=== PATIENT | male | born 1975 | race Caucasian/White ===

== ENCOUNTER 2019-08-10 14:44 | Emergency (ER) | payer SELFPAY ==
[2019-08-10 14:45] VITALS: BP 167/69; PULSE 74; RESP 16; TEMP 36.5; O2SAT 99; BMI 46.5
--- NOTE | 2019-08-10 15:07 | EKG12_ITS ---
Test Reason : SOB Blood Pressure : / mmHG Vent. Rate : 079 BPM Atrial Rate : 079 BPM P-R Int : 132 ms QRS Dur : 146 ms QT Int : 400 ms P-R-T Axes : 010 014 -01 degrees QTc Int : 458 ms Normal sinus rhythm Right bundle branch block Abnormal ECG Confirmed by PRAVEEN HOLCOMB, LUX ([id number]), news videotape editor ANGELINA RAMIREZ ([id number] on 08/12/2019 3:15:25 PM Referred By: SL/JERRI Confirmed By:LUX MORTON MD
--- NOTE | 2019-08-10 15:09 | ED.VISSUMM ---
- ER Visit Summary Date of Service: 08/10/19 Chief Complaint: Cough and shortness of breath History of Present Illness: The patient is a 44 M who presents with cough and shortness of breath that is been constant for the past 2 months. Patient states he has been on antibiotics and is currently on prednisone for this. Patient states he feels fatigued. Patient states he feels like he cannot catch his breath. Patient states his breathing is worse with any exertion. Patient states when he coughs he gets pain that goes into his neck and down into his back. Patient states this last for several minutes and then resolves. Patient admits to subjective chills. Patient admits to nausea but denies any vomiting. Patient admits to a headache and rhinorrhea with some postnasal drainage. Physical Examination: Vital signs are stable. Patient is afebrile. Patient is in no acute distress. Oral mucosa is pink and moist. Neck is supple. Trachea is midline. There is no JVD. Heart was regular rate and rhythm. Lungs showed mild expiratory wheezing. There is adequate respiratory effort. Abdomen is soft. Bowel sounds are normal. There is no tenderness. Cranial nerves II through XII are intact. There are no focal motor or sensory deficits noted. Extremities are intact. There is no calf tenderness or edema. Test Results: EKG showed a normal sinus rhythm with a rate of 79. There is a right bundle branch block pattern noted. There are no acute ST or T wave changes noted. There are no prior EKGs available for comparison. CBC shows a mild leukocytosis of 13.4. Comprehensive metabolic profile was within normal limits. D-dimer was normal. PA and lateral chest x-ray was obtained. There is no acute cardiopulmonary process. This was interpreted by the radiologist and myself. Emergency Department Course and Treatment: Patient was given a DuoNeb aerosol here. Patient was given a repeat albuterol aerosol. Patient was feeling somewhat better on reevaluation. Patient was ambulated in the bishop. Patient maintained an oxygen saturation of 94%. Patient was instructed to continue his prednisone as previously prescribed until gone. Patient was advised that this is most likely a viral infection and antibiotics are not necessary. Patient was instructed to follow-up with his primary care physician in 5 to 7 days. Patient was given a prescription for a short course of Tylenol with codeine to help with the cough and pain. Patient understood and was agreeable with the plan. All questions were answered. Disposition: Discharge home Impression: Viral bronchitis This note was generated with [employer] dictation software. It may contain incorrect words, spelling, and punctuation that were not noted in review of the chart prior to signing ED Disposition - Plan for ED Patient: Disposition: Home or Assisted Living Diagnosis: Viral bronchitis Instructions: BRONCHITIS with Wheezing (Adult) Prescriptions: Acetaminophen/Codeine #3 [Tylenol#3] 1 tab PO Q4H PRN PRN 3 Days #18 tab PRN Reason: Cough Prescription Printed Referrals: [facility] Doctor,Out of [NON-STAFF] - 5-7 Days
[2019-08-10 15:18] VITALS: PULSE 74; RESP 15
[2019-08-10] MEDS: Ipratropium/Albuterol Sulfate 3 ML AMPUL.NEB INHALATION (15:18)
[2019-08-10 15:24] VITALS: O2SAT 99
--- NOTE | 2019-08-10 15:30 | RAD_ITS ---
STUDY: X-RAY CHEST REASON FOR EXAM: Male, 44 years old. TROUBLE BREATHING, COUGH x2 MONTHS TECHNIQUE: PA and lateral views of the chest. COMPARISON: None. FINDINGS: EKG leads project over the chest. The lungs are clear and expanded. There is no demonstrated pleural abnormality. Normal size heart. Normal mediastinum and bernard. Normal visualized pulmonary arteries. Normal visualized aortic arch and descending thoracic aorta. Normal visualized thoracic spine. Normal visualized ribs, clavicles, and shoulders. There is no demonstrated abnormality of the visualized soft tissue structures of the upper abdomen. RAD/Chest PA and Lateral IMPRESSION: Normal x-ray examination of the chest. Electronically Signed: Temo Cary MD (Brooks) at 15:55 EST , Service support ,
[2019-08-10 15:32] LABS: Absolute Lymphocyte Count 1.66 X10^3/uL (0.83-4.51); Absolute Neutrophil Count 10.6 X10^3/uL (2.0-7.7); Basophil# 0.06 X10^3/uL; Basophil% 0.4 % (0-1); Eosinophil# 0.05 X10^3/uL; Eosinophils% 0.4 % (0-5); Hematocrit 41.9 % (40-54); Hemoglobin 13.8 g/dL (13.0-16.5); Lymphocyte # 1.66 X10^3/ul (4.0); Lymphocyte % 12.4 % (19-41); Mean Corp Hgb Conc 32.9 g/dL (32-36); Mean Corpuscular Hgb 26.8 pg (27.0-32.0); Mean Corpuscular Volume 81.4 fL (80-94); Mean Platelet Vol. 10.5 fl (6.2-12.0); Monocyte# 0.79 X10^3/uL; Monocyte% 5.9 % (0-10); NRBC Flagged by Analyzer 0 % (0-5); Neutrophil # 10.55 X10^3/uL (2.7-7.7); Neutrophil % 78.9 % (47-70); Platelet Count 242 K/mm3 (150-450); RBC Distribution Width CV 13.2 % (11.6-14.6); RBC Distribution Width SD 38.6 fl (35.1-43.9); Red Blood Count 5.15 M/mm3 (4.6-6.2); White Blood Count 13.4 K/mm3 (4.4-11.0)
[2019-08-10 15:44] LABS: D-Dimer Quantitative (DVT/PE) 0.32 FEU/ug/m (0.27-0.49)
[2019-08-10 15:53] LABS: ALB/GLOB Ratio 0.8 RATIO (0.9-2.4); AST(SGOT) 24 U/L (15-37); Alanine Aminotransfer ALT/SGPT 47 U/L (16-61); Albumin, Serum 3.3 g/dL (3.2-5.0); Alkaline Phosphatase 85 U/L (45-117); Anion Gap 8 (5-15); BUN 29 mg/dL (7-18); Calcium,Total 9.3 mg/dL (8.5-10.1); Chloride 105 mmol/L (98-107); Creatinine, Serum 1.16 mg/dL (0.70-1.30); EST Glomerular Filtration Rate 72 mL/min (>60); Est Glom Filt Rate - Afr Amer 87 mL/min (>60); Estimated Creatinine Clearance 80.42 ml/min; Globulin 3.9 g/dL (2.2-4.2); Glucose 156 mg/dL (74-106); Protein, Total 7.2 g/dL (6.4-8.2); Sodium Level 141 mmol/L (136-145)
[2019-08-10] MEDS: Albuterol 2.5 MG/3 ML VIAL.NEB. INHALATION (16:19)
[2019-08-10 16:20] VITALS: PULSE 76; RESP 16
[2019-08-10 16:32] VITALS: BP 185/69; PULSE 79; RESP 16; TEMP 36.7; O2SAT 98
[2019-08-10] MEDS: Acetaminophen/Codeine #3 Tablet 1 TABLET PO (17:35)
[2019-08-10 17:45] VITALS: BP 163/66; PULSE 72; PULSE 74; RESP 10; TEMP 36.7; O2SAT 94; O2SAT 97
== END 2019-08-10 18:07 | disposition home or self-care (01) ==
PROVIDERS: Emergency Provider Emergency Medicine
DX: J20.8 Acute bronchitis due to other specified organisms (principal); E11.9 Type 2 diabetes mellitus without complications; I10 Essential (primary) hypertension; Z72.0 Tobacco use
CPT/HCPCS: 71046; 80053; 84484; 85025; 85379; 87804; 93005; 94640; 99285; A4216

== ENCOUNTER → 2021-01-29 06:53 | Outpatient (CLI) | payer OTHER, SELFPAY ==
--- NOTE | 2021-01-29 14:59 | STRESSREP ---
Stress Test Report Pharmacologic myocardial perfusion stress test. 45-year-old man with a history of abnormal EKG and chest pain. Stress protocol: Resting EKG demonstrates sinus rhythm with a rate of 68 bpm right bundle branch block is noted resting blood pressure is 168/72 mmHg. 0.4 mg of regadenoson was infused per usual protocol followed by rapid intravenous saline flush injection continuous EKG monitoring was performed. The maximum heart rate attained was 86 bpm which was 49% of max infected heart rate the maximum workload was 1 metabolic equivalent. At rest there were no ST or T wave changes noted to suggest abnormal flow reserve and at peak infusion nonspecific ST changes were noted with did not meet the criteria for ischemia. The final blood pressure was 152/62 mmHg. No clinical angina was noted the test was terminated due to completion of the test. Myocardial perfusion protocol. 14.0 mCi of technetium 99m sestamibi was injected at rest. 0.4 mg of regadenoson was infused per usual protocol. At peak infusion 45.0 mCi of technetium 99m sestamibi was injected stress images were obtained stress and rest images were reconstructed and compared in the short axis vertical long horizontal long axis. Gated images were also obtained Perfusion SPECT analysis: Review of the stress images demonstrate normal uptake of tracer noted in all areas of the myocardium. The resting images similarly demonstrate normal uptake of tracer noted in all areas of the myocardium. No areas of reversibility are noted to suggest ischemia. Gated SPECT analysis: The gated ejection fraction is 69%. Conclusion: Normal pharmacologic myocardial perfusion stress test. Right bundle branch block. Preserved ejection fraction.
== END ==
LOC: CVS 06:57
PROVIDERS: PCP Family Medicine; Referring Provider Family Medicine; Visit Provider Family Medicine
DX: R07.9 Chest pain, unspecified (principal)
CPT/HCPCS: 78452; 93017; A9500; A4216; J2785

== ENCOUNTER 2022-12-15 12:05 | Observation (INO) | payer OTHER, SELFPAY ==
[2022-12-15] VITALS (12 sets, daily range): BP systolic 124–173; BP diastolic 56–94; PULSE 60–70; RESP 16–28; TEMP 36.6–37; O2SAT 93–100; BMI 47.7; BMI 51.2
--- NOTE | 2022-12-15 12:08 | CT_ITS ---
STUDY: CT HEAD STROKE PROTOCOL W/O CONTRAST INJECTION REASON FOR EXAM: Male, 47 years old. Neuro deficit, acute, stroke suspected RADIATION DOSAGE (If Supplied By Facility): CTDIvol = ( 44.99 ) mGy, DLP = ( 846.73 ) mGycm TECHNIQUE: Transaxial CT imaging of the brain was performed without administration of intravenous contrast material. Individualized dose optimization techniques were used for this CT. COMPARISON: No relevant priors. FINDINGS: Normal soft tissue structures. Normal calvarium. There is mild cerebral atrophy with widening of the extra-axial spaces and ventricular dilatation. Normal white matter tracts of the cerebral hemispheres. Normal basal ganglia and thalami. Normal brainstem. Normal cerebellum. There is no intracranial hemorrhage. There are no findings of an acute ischemic infarction. Normal visualized paranasal sinuses. ASPECT score: 10 CT/STROKE Brain/Head without Cont IMPRESSION: Chronic involutional changes of the brain. N.B. : The above Results were Read Back by Levi Morrell MD to Dr Ariadna MD, and understanding confirmed on 12/15/2022 12:28:58 (ET). Electronically Signed: Levi Morrell MD at 12:30 EDT ,
--- NOTE | 2022-12-15 12:08 | EKG12_ITS ---
Test Reason : POSS STROKE Blood Pressure : / mmHG Vent. Rate : 064 BPM Atrial Rate : 064 BPM P-R Int : 162 ms QRS Dur : 152 ms QT Int : 418 ms P-R-T Axes : 015 -02 006 degrees QTc Int : 431 ms Normal sinus rhythm Right bundle branch block Abnormal ECG Confirmed by PRAVEEN HOLCOMB, LUX ([id number]), development editor ARPAN DE LA CRUZ ([id number]) on 12/16/2022 12:56:34 PM Referred By: Confirmed By:LUX MORTON MD
--- NOTE | 2022-12-15 12:09 | EDS_ITS ---
HPI History of Present Illness Chief Complaint: Stroke Alert Informant: patient and spouse/S.O. Narrative Narrative: Patient presents to triage with numbness in the right lower part of his face mostly the jaw. He also states it is a little in his right upper arm, pointing to the medial bicep area. He denies any trouble talking or understanding others. He states this started at 11:00, he presents to triage just after noon. He states he had the same thing happened yesterday but it went away on its own, and since then he has been having a headache on the right side and blurry vision diffusely throughout his visual bertrand without any loss of vision. No diplopia. No loss of consciousness, no thunderclap sudden onset headache it was gradual. Does not usually get headaches. He states he has had some unexplained dyspnea with exertion, he saw someone and had a negative stress test and states now he is being scheduled for an outpatient heart catheterization because of all of this. [facility] Medical History (Updated 12/15/22 @ 12:[address] Jose Rosenthal MD) Diabetes HTN (hypertension) Home Medications cyanocobalamin (vitamin B-12) 5,000 mcg disintegrating tablet 5,000 mcg PO DAILY 04/20/17 [History Last Taken Unknown] glimepiride 4 mg tablet 4 mg PO DAILY DIABETES 04/20/17 [History Last Taken Unknown] losartan 50 mg-hydrochlorothiazide 12.5 mg tablet 1 ea PO DAILY BLOOD PRESSURE 04/20/17 [History Last Taken Unknown] multivitamin (Multiple Vitamins tablet) 1 ea PO DAILY 04/20/17 [History Last Taken Unknown] simvastatin 20 mg tablet 20 mg PO QHS 04/20/17 [History Last Taken Unknown] ciprofloxacin HCl 500 mg tablet 500 mg PO BID ##7 04/21/17 [Rx Last Taken Unknown] hydrocodone-acetaminophen 5-325mg 5mg-325mg (Cecil) 1 - 2 ea (1 - 2 x 5-325 mg) PO Q6H PRN PRN Pain #14 tabs 04/21/17 [Rx Last Taken Unknown] Allergy/AdvReac Type Severity Reaction Status Date / Time Penicillins [PCN] AdvReac ABDOMINAL Verified 04/20/17 12:30 PAIN, SEVERE DIARRHEA Social History Smoking Status: Former smoker ROS ROS ED Constitutional Constitutional ED: Denies chills or fever(s) Eyes Eyes: Reports blurry vision bilateral and change in vision; Denies diplopia ENT ENT ED: Denies rhinorrhea or sore throat Cardiovascular Cardiovascular: Denies chest pain or palpitations Respiratory/Chest Respiratory/Chest: Denies cough or dyspnea Gastrointestinal Gastrointestinal: Denies abdominal pain, diarrhea, nausea or vomiting Genitourinary Genitourinary ED: Denies dysuria or hematuria Musculoskeletal Musculoskeletal: Denies back pain or neck pain Integumentary Denies abscess or rash Neurologic Neurologic: Reports headache(s) and paresthesias; Denies weakness Psychiatric Psychiatric: Denies anxiety or suicidal thoughts EXAM Physical Exam Const Vital Signs: 12/15/22 12:16 12/15/22 12:19 12/15/22 12:23 Temperature 98.1 F Temperature Source Temporal Pulse Rate 70 70 Respiratory Rate 18 18 Blood Pressure 166/85 H 166/85 H Blood Pressure Mean 112 112 Pulse Ox 95 95 Oxygen Delivery Method Room Air Room Air Room Air 12/15/22 12:26 Temperature Temperature Source Pulse Rate 70 Respiratory Rate 16 Blood Pressure 173/73 H Blood Pressure Mean 106 Pulse Ox 96 Oxygen Delivery Method Room Air Positive well nourished, well developed and obese General Appearance ED: well developed and NAD Nutritional Appearance: obese HEENT Reports moist mucous membranes normocephalic and atraumatic Eyes PERRL and EOMs intact bilaterally Neck full ROM and supple Resp normal respiratory effort and clear to auscultation bilaterally Cardio regular rate, regular rhythm and no murmurs GI non-tender and non-distended Auscultation: normoactive bowel sounds Palpation: soft Back/Spine no CVA tenderness General Back: other FROM Extremity normal to inspection General Extremety ED: Negative for edema, pulses abnormal or tenderness General Extremity: Negative for edema or pulses abnormal Neuro oriented x3 [place] Coma Scale: document GCS findings Spontaneous Obeys Commands Oriented 15 Sensorium / Orientation: awake and alert Motor Exam: strength 5/5 throughout Psych mental status grossly normal Skin no rashes or lesions noted and no wounds NIHSS NIHSS Initial: 1a Level of Consciousness: 0 1b LOC Questions (Score 2 if aphasic/stupor): 0 1c LOC Commands (Only score 1st attempt): 0 2 Best Gaze (If aphasic, use reflexive mvmts.): 0 3 Visual: 0 4 Facial Palsy: 0 5 Motor Arm Right (UN = amputation/fusion): 0 5 Motor Arm Left: 0 6 Motor Leg Right: 0 6 Motor Leg Left: 0 7 Limb ataxia (Only + if out of proportion): 0 8 Sensory (Aphasia/stupor=0 or 1, coma=2): 1 9 Best Language: 0 10 Dysarthria (mute, coma=2, intubated=UN): 0 11 Extinction and Inattention (only scored if +): 0 Total Score: 1 MDM MDM MDM Narrative Medical decision making narrative: On exam patient does not have aphasia or dysarthria, he pauses and repeating a couple of the stroke freezes for stroke neurology, and he states his speech is not 100%, although he sounds objectively okay to us. I agree with Dr. Sage of the stroke neurologist who evaluated the patient via teleneurology at the bedside, that thrombolytics would not be recommended given nondisabling deficits and a 6% risk of hemorrhage. Discussed with the patient and his family member, both are in agreement with this. We did discuss the possibility of stroke here in addition to complex migraine headache less likely to be subclinical seizure activity. Does not have a history of migraines. Blood pressure accelerated in the 160s-170s, which is part of the reason we called a stroke alert. He describes pain in both sides of the neck worse on the right, that is not acute or new, CTA imaging reviewed as well as the report which I agree with, no carotid dissection and no other acute vascular abnormality. As I discussed with the patient we will give him some Reglan to see if that helps with his symptoms but regardless he needs to have further stroke evaluation to rule out ischemic/vascular etiologies here. He is hyperglycemic in the 230s, not a known diabetic unknown if this could be contributing. Will admit, discussed with hospitalist. History & Record Review Discussion w/independent historian: Patient and Family Lab Data Attestation: I reviewed the patient's lab results. Labs: Laboratory Results - last 24 hr 12/15/22 12/15/22 12:15 12:24 WBC 9.9 RBC 5.34 Hgb 13.4 Hct 42.5 MCV 79.6 L MCH 25.1 L MCHC 31.5 L RDW Std Deviation 42.0 RDW Coeff of Osorio 14.7 H Plt Count 219 MPV 10.0 Immature Gran % (Auto) 0.500 Neut % (Auto) 73.2 H Lymph % (Auto) 16.0 L [place] % (Auto) 8.5 Eos % (Auto) 1.5 Baso % (Auto) 0.3 Absolute Neuts (auto) 7.2 Absolute Lymphs (auto) 1.58 Nucleated RBC % 0 Sodium 138 Potassium 4.2 Chloride 104 Carbon Dioxide 28.0 Anion Gap 6 BUN 25 H Creatinine 1.25 Estim Creat Clear Calc 81.68 Est GFR (MDRD) Af Amer 79 Est GFR (MDRD) Non-Af 65 BUN/Creatinine Ratio 20.0 Glucose 237 H Calcium 10.0 Troponin I High Sens 19 POC Glucose 232 H Radiography Chest X-Ray - ED: 1 View, Read by ED Physician, No Acute Disease and No Infiltrates Diagnostic Testing: Clinical Impression(s) from Imaging Studies Brain CT 12/15/22 12:08 IMPRESSION: Chronic involutional changes of the brain. N.B. : The above Results were Read Back by Levi Morrell MD to Dr Ariadna MD, and understanding confirmed on 12/15/2022 12:28:58 (ET). Electronically Signed: Levi Morrell MD at 12:30 EDT , ADDENDUM: 12/15/22 1237 IMPRESSION: Chronic involutional changes of the brain. N.B. : The above Results were Read Back by Levi Morrell MD to Dr Ariadna MD, and understanding confirmed on 12/15/2022 12:28:58 (ET). Electronically Signed: Levi Morrell MD at 12:30 EDT , Head/Neck CTA 12/15/22 12:16 IMPRESSION: Normal CTA Head and neck with contrast. N.B. : The above Results were Read Back by Levi Morrell MD to Jose Rosenthal and understanding confirmed on 12/15/2022 12:40:45 (ET). Electronically Signed: Levi Morrell MD at 12:41 EDT , ADDENDUM: 12/15/22 1248 IMPRESSION: Normal CTA Head and neck with contrast. N.B. : The above Results were Read Back by Levi Morrell MD to Jose Rosenthal and understanding confirmed on 12/15/2022 12:40:45 (ET). Electronically Signed: Levi Morrell MD at 12:41 EDT , My interpretation of the CT agrees with that of the radiologist. Rhythm Strip Rhythm Strip: Sinus Rhythm Rate: 70 Ectopy: None EKG Initial EKG: Attestation: I personally reviewed and interpreted this EKG as follows: Interpretation: Sinus Rhythm and No Acute Injury Pattern Management Discussion w/another healthcare provider: Hospitalist and Individual Pension Consultant (Stroke neurology Dr. Sage) Stroke Documentation Questions Stroke Team Activated: Yes (In triage where I first evaluated the patient) Was Patient considered for Endovascular Intervention?: No-CTA negative, determined not to be an endovascular candidate IV Thrombolytic Administered: No (Nondisabling deficits) Critical Care Time Critical Care Time: Yes Critical care time (excluding procedures): 30-74 minutes (35 min), Including time spent:, Discussing w/Patient &/or Family/Legal Referee, Discussing w/Consultants, Arranging Admission or Transfer and Performing Direct Patient Care at Bedside Discharge Plan Triage Chief Complaint: Stroke Alert ED Provider: Jose Rosenthal Dx/Rx/DC Orders Clinical Impression: Facial paresthesia, Arm paresthesia, right Prescriptions: No Action multivitamin [Multiple Vitamins] 1 EACH tablet 1 ea PO DAILY simvastatin 20 MG tablet 20 mg PO QHS glimepiride 4 MG tablet 4 mg PO DAILY losartan-hydrochlorothiazide 1 EACH tablet 1 ea PO DAILY cyanocobalamin (vitamin B-12) 5,000 MCG tablet,disintegrating 5,000 mcg PO DAILY hydrocodone-acetaminophen [Cecil] 1 EACH tablet 1 - 2 ea PO Q6H PRN PRN (Reason: Pain) Qty: 14 0RF ciprofloxacin HCl 500 MG tablet 500 mg PO BID Qty: 7 0RF Primary Care Provider: Shola Hussein Referrals: Shola Hussein MD [Primary Care Provider] - Disposition Disposition: Acute Care Hospital [facility]
--- NOTE | 2022-12-15 12:16 | CT_ITS ---
STUDY: CTA HEAD AND NECK WITH CONTRAST REASON FOR EXAM: Male, 47 years old. Neuro deficit, acute, stroke suspected RADIATION DOSAGE (If Supplied By Facility): CTDIvol = ( 23.28 ) mGy, DLP = ( 911.46 ) mGycm TECHNIQUE: CT angiography was performed with a multi-detector CT scanner. Data acquisition was obtained from the skull base through the vertex following intravenous administration of IV 100mL [id number]-[id number]. MIP images were reconstructed from the axial data set. Post-processing of the angiographic images was performed, with multiplanar reformation and 3D reconstruction. Individualized dose optimization techniques were used for this CT. COMPARISON: No relevant priors. FINDINGS: Normal bilateral petrous carotid arteries. There is calcified plaque formation of the right cavernous carotid artery, without a cross-sectional luminal stenosis. There is calcified plaque formation of the left cavernous carotid artery, without a cross-sectional luminal stenosis. Normal right A1 segments of the anterior cerebral artery. Normal left A1 segments of the anterior cerebral artery. Normal intact anterior communicating artery (ACOM). Normal bilateral A2 segments of the anterior cerebral arteries. Normal right M1 and M2 segments of the middle cerebral arteries, with a normal M1 bifurcation. Normal left M1 and M2 segments of the middle cerebral arteries, with a normal M1 bifurcation. Normal right posterior communicating artery (PCOM). Normal left posterior communicating artery (PCOM). Normal bilateral vertebral arteries. Normal basilar artery with a normal basilar bifurcation. The visualized bilateral superior cerebellar (SCA) arteries are normal. Normal bilateral P1, P2 and visualized P3 segments of the posterior cerebral arteries. There is no demonstrated aneurysm of the [place]. Heterogeneity of the left lobe of the thyroid gland suggestive of possible goiter as change. AORTIC ARCH: There is atherosclerotic calcific plaque formation of the aortic arch and great vessels arising from the aortic arch, without a hemodynamically significant stenosis. There is a bovine origin of the great vessels with a common origin of the brachiocephalic and left common carotid artery. Normal origin of the left subclavian artery. RIGHT CAROTID ARTERIES: Normal right common carotid artery (CCA). Normal right common carotid bulb. Normal origin of the right internal carotid (ICA) artery without a hemodynamically significant stenosis. Normal visualized cervical portion of the right internal carotid artery. Normal origin of the right external carotid artery (ECA). LEFT CAROTID ARTERIES: Normal left common carotid artery (CCA). Normal left common carotid bulb. Normal origin of the left internal carotid (ICA) artery without a hemodynamically significant stenosis. Normal visualized cervical portion of the left internal carotid artery. Normal origin of the left external carotid artery (ECA). VERTEBRAL ARTERIES: Normal bilateral vertebral arteries. CT/STROKE CTA Head AND Neck W/Con IMPRESSION: Normal CTA Head and neck with contrast. N.B. : The above Results were Read Back by Levi Morrell MD to Jose Rosenthal and understanding confirmed on 12/15/2022 12:40:45 (ET). Electronically Signed: Levi Morrell MD at 12:41 EDT ,
[2022-12-15 12:21] LABS: Absolute Lymphocyte Count 1.58 X10^3/uL (0.83-4.51); Absolute Neutrophil Count 7.2 X10^3/uL (2.0-7.7); Basophil# 0.03 X10^3/uL; Basophil% 0.3 % (0-1); Eosinophil# 0.15 X10^3/uL; Eosinophils% 1.5 % (0-5); Hematocrit 42.5 % (40-54); Hemoglobin 13.4 g/dL (13.0-16.5); Lymphocyte # 1.58 X10^3/ul (0.83-4.51); Mean Corp Hgb Conc 31.5 g/dL (32-36); Mean Corpuscular Hgb 25.1 pg (27.0-32.0); Mean Corpuscular Volume 79.6 fL (80-94); Monocyte# 0.84 X10^3/uL; Monocyte% 8.5 % (0-10); NRBC Flagged by Analyzer 0 % (0-5); Neutrophil # 7.21 X10^3/uL (2.7-7.7); Neutrophil % 73.2 % (47-70); Platelet Count 219 K/mm3 (150-450); RBC Distribution Width CV 14.7 % (11.6-14.6); Red Blood Count 5.34 M/mm3 (4.6-6.2); White Blood Count 9.9 K/mm3 (4.4-11.0)
--- NOTE | 2022-12-15 12:35 | ED.RN ---
PER DR ANDERSON, NO TNK AT THIS TIME
[2022-12-15] MEDS: Metoclopramide 10 MG/2 ML Vial 5 MG IV (12:38)
[2022-12-15 12:41] LABS: Bedside Glucose 232 mg/dL (74-106)
[2022-12-15 12:44] LABS: Anion Gap 6 (5-15); BUN 25 mg/dL (7-18); Chloride 104 mmol/L (98-107); Creatinine, Serum 1.25 mg/dL (0.70-1.30); EST Glomerular Filtration Rate 65 mL/min (>60); Est Glom Filt Rate - Afr Amer 79 mL/min (>60); Estimated Creatinine Clearance 81.68 ml/min; Glucose 237 mg/dL (74-106); Potassium 4.2 mmol/L (3.5-5.1); Sodium Level 138 mmol/L (136-145); Troponin-I HS 19 pg/mL (3.0-78.0)
--- NOTE | 2022-12-15 12:50 | RAD_ITS ---
STUDY: X-RAY CHEST REASON FOR EXAM: Male, 47 years old. Neuro deficit, acute, stroke suspected TECHNIQUE: Single AP portable view of the chest. COMPARISON: Comparison is made with prior study August 10, 2019. FINDINGS: EKG electrode is seen. The lungs are clear and expanded. There is no demonstrated pleural abnormality. There is borderline cardiomegaly. Normal mediastinum and bernard. Normal visualized pulmonary arteries. Normal visualized aortic arch and descending thoracic aorta. Normal visualized thoracic spine. Normal visualized ribs, clavicles, and shoulders. There is no demonstrated abnormality of the visualized soft tissue structures of the upper abdomen. RAD/Chest 1 View IMPRESSION: No acute abnormality is seen. Electronically Signed: Levi Morrell MD at 13:00 EDT ,
[2022-12-15 13:07] LABS: International Normalized Ratio 1.1; Partial Thromboplast Time 39.9 Seconds (24.1-36.2); Prothrombin Time (Protime)PT. 14.3 SECONDS (11.7-14.9)
--- NOTE | 2022-12-15 13:14 | MRI_ITS ---
STUDY: MRI BRAIN WITHOUT CONTRAST REASON FOR EXAM: Male, 47 years old. TIA, rt facial numbness, headaches TECHNIQUE: Standardized multiplanar fat and water weighted pulse sequences were obtained. COMPARISON: None. FINDINGS: Mild nonspecific atrophy for stated age. Normal white matter tracts of the supratentorial brain. Normal bilateral basal ganglia. Normal thalami. There is no extra-axial fluid accumulation. Normal flow voids within the major intracranial circulation suggesting patency by spin echo criteria. Normal sella turcica, pituitary gland, infundibular stalk, optic chiasm and hypothalamus. Normal tectal plate and pineal gland. Normal midbrain, ismael and medulla. Normal cerebellum. Normal basal cisterns. Normal bilateral temporal bones. Normal bilateral internal auditory canals. Postsurgical changes of the orbits.. Minor mucosal thickening of ethmoid air cells.. Normal calvarium and skull base. Normal visualized soft tissue structures. Normal visualized upper cervical spine. MRI/Brain without Contrast IMPRESSION: Nonspecific bowel atrophy for stated age. Otherwise no significant abnormalities. Electronically Signed: Erasto Blankenship MD at 19:15 EDT ,
--- NOTE | 2022-12-15 13:14 | ECHOCS_ITS ---
Reason For Study: TIA/STROKE Procedure This was a 2D Doppler, Color Flow transthoracic echocardiogram. The study was technically difficult. Contrast injection was performed. Exam performed portable in patient room. Medication Diluted definity 6ml given slow IV push to enhance endocardial definition. MMode/2D Measurements & Calculations Ao root diam: 3.2 cm LA dimension(2D): 4.2 cm Time Measurements MV dec time: 0.23 sec Doppler Measurements & Calculations MV E max mukul: 95.1 cm/sec Lat Peak E' Mukul: 12.0 cm/sec Med Peak E' Mukul: 8.1 cm/sec MV A max mukul: 60.2 cm/sec E/E' lat: 7.9 E/E' med: 11.8 MV E/A: 1.6 MV V2 max: 91.3 cm/sec MV dec slope: 419.3 cm/sec2 Ao V2 max: 163.8 cm/sec MV max P.3 mmHg Ao max P.7 mmHg MV V2 mean: 50.1 cm/sec Ao V2 mean: 98.6 cm/sec MV mean P.2 mmHg Ao mean P.7 mmHg MV V2 VTI: 32.6 cm Ao V2 VTI: 35.3 cm AV (velocity ratio): 0.72 LV V1 max: 113.7 cm/sec PA V2 max: 105.5 cm/sec LV V1 max P.2 mmHg PA V2 mean: 66.0 cm/sec LV V1 mean P.9 mmHg LV V1 mean: 80.2 cm/sec LV V1 VTI: 25.3 cm ECHO/Echo Complete W/ Contrast Interpretation Summary Limited transthoracic echocardiogram TDS Overall LV systolic function is within normal Definity used as a contrast echo. No previous echocardiogram to compare. Consider to evaluate further with JOSE GUADALUPE if clinically indicated. Ordering Physician: Anthony Pablo Referring Physician: EL RUANO Performed By: Kathrine Morgan and Student
--- NOTE | 2022-12-15 13:15 | HP.PCM.HOS_ITS ---
HPI - General General Date of Admission: 12/15/22 Date of Service: 12/15/22 Chief Complaint: Right-sided facial numbness HPI Narrative ELSY LORENZO, is a 47 M who presents with right-sided facial numbness. Patient symptoms started a day prior to coming in. Symptoms initially started with some blurry vision was at work. He later experienced numbness involving the right side of her face which resolved. Patient woke up on the morning of his admission with significant headache. He did have recurrence of his right- sided facial numbness which necessitated patient presented to the emergency department. Patient also reported exertional dyspnea and is scheduled to undergo left heart catheterization at [facility] on 12/23/2022. Initial head CT and CT of the neck obtained in the emergency department came back unremarkable admitted to monitored bed for further management [facility] Medical History (Updated 12/15/22 @ 12:[address] Jose Rosenthal MD) Diabetes HTN (hypertension) Home Medications cyanocobalamin (vitamin B-12) 5,000 mcg disintegrating tablet 5,000 mcg PO DAILY 04/20/17 [History Last Taken Unknown] glimepiride 4 mg tablet 4 mg PO DAILY DIABETES 04/20/17 [History Last Taken Unknown] losartan 50 mg-hydrochlorothiazide 12.5 mg tablet 1 ea PO DAILY BLOOD PRESSURE 04/20/17 [History Last Taken Unknown] multivitamin (Multiple Vitamins tablet) 1 ea PO DAILY 04/20/17 [History Last Taken Unknown] simvastatin 20 mg tablet 20 mg PO QHS 04/20/17 [History Last Taken Unknown] ciprofloxacin HCl 500 mg tablet 500 mg PO BID ##7 04/21/17 [Rx Last Taken Unknown] hydrocodone-acetaminophen 5-325mg 5mg-325mg (White) 1 - 2 ea (1 - 2 x 5-325 mg) PO Q6H PRN PRN Pain #14 tabs 04/21/17 [Rx Last Taken Unknown] Allergy/AdvReac Type Severity Reaction Status Date / Time Penicillins [PCN] AdvReac ABDOMINAL Verified 12/15/22 13:13 PAIN, SEVERE DIARRHEA no significant family history Social History Smoking Status: Former smoker ROS ROS Narrative GENERAL: denies fever, chills, night sweats, weight loss, anorexia HEENT: denies headache, sinus congestion, or drainage, dysphagia RESPIRATORY: dyspnea on exertion CARDIAC: denies chest pain, palpitations, orthopnea, PND GASTROINTESTINAL: denies abdominal pain, nausea, vomiting, melena, GENITOURINARY: denies dysuria, urgency, frequency, heamaturia EXTREMITY: denies swelling MUSCULOSKELETAL: denies current joint pain or tenderness NEUROLOGIC: Right-sided facial numbness HEMATOLOGIC: denies easy bruising and/or hemorrhage INTEGUMENT: denies rashes PSYCHIATRIC: denies suicidal or homicidal ideation Vital Signs Vital Signs Vital Signs: 12/15/22 12:16 12/15/22 12:19 12/15/22 12:23 Temperature 98.1 F Temperature Source Temporal Pulse Rate 70 70 Respiratory Rate 18 18 Blood Pressure 166/85 H 166/85 H Blood Pressure Mean 112 112 Pulse Ox 95 95 Oxygen Delivery Method Room Air Room Air Room Air 12/15/22 12:26 12/15/22 12:45 Temperature Temperature Source Pulse Rate 70 66 Respiratory Rate 16 17 Blood Pressure 173/73 H 165/66 H Blood Pressure Mean 106 99 Pulse Ox 96 97 Oxygen Delivery Method Room Air Room Air Weight Weight: 163.9 kg Body Mass Index (BMI) 47.7 Physical Exam Narrative GENERAL: cooperative HEENT: Atraumatic; normocephalic EYES; Anicteric, Normal Conjunctiva NECK; supple, normal thyroid, RESPIRATORY: Diminished to auscultation CARDIOVASCULAR: Regular S1 S2, GI: soft, normoactive bowel sounds, : No Renal angle tenderness; EXTREMITIES: No edema, no clubbing, MUSCULOSKELETAL: no muscle wasting NEURO: Awake; no lateralizing signs. SKIN: No Rash PSYCH; Flat affect Results Lab / Micro Data 12/15/22 12:15 12/15/22 12:15 Labs: Laboratory Results - last 24 hr 12/15/22 12:15: WBC 9.9, RBC 5.34, Hgb 13.4, Hct 42.5, MCV 79.6 L, MCH 25.1 L, MCHC 31.5 L, RDW Std Deviation 42.0, RDW Coeff of Osorio 14.7 H, Plt Count 219, MPV 10.0, Immature Gran % (Auto) 0.500, Neut % (Auto) 73.2 H, Lymph % (Auto) 16.0 L , [place] % (Auto) 8.5, Eos % (Auto) 1.5, Baso % (Auto) 0.3, Absolute Neuts (auto) 7.2, Absolute Lymphs (auto) 1.58, Nucleated RBC % 0, PT 14.3, INR 1.1, APTT 39.9 H, Sodium 138, Potassium 4.2, Chloride 104, Carbon Dioxide 28.0, Anion Gap 6, BUN 25 H, Creatinine 1.25, Estim Creat Clear Calc 81.68, Est GFR (MDRD) Af Amer 79, Est GFR (MDRD) Non-Af 65, BUN/Creatinine Ratio 20.0, Glucose 237 H, Calcium 10.0, Troponin I High Sens 19 12/15/22 12:24: POC Glucose 232 H Rhythm Strip Rhythm Strip: Sinus Rhythm Rate: 70 Ectopy: None Radiology Impression Brain CT 12/15/22 12:08 IMPRESSION: Chronic involutional changes of the brain. N.B. : The above Results were Read Back by Levi Morrell MD to Dr Ariadna MD, and understanding confirmed on 12/15/2022 12:28:58 (ET). Electronically Signed: Levi Morrell MD at 12:30 EDT , ADDENDUM: 12/15/22 1237 IMPRESSION: Chronic involutional changes of the brain. N.B. : The above Results were Read Back by Levi Morrell MD to Dr Ariadna MD, and understanding confirmed on 12/15/2022 12:28:58 (ET). Electronically Signed: Levi Morrell MD at 12:30 EDT , Head/Neck CTA 12/15/22 12:16 IMPRESSION: Normal CTA Head and neck with contrast. N.B. : The above Results were Read Back by Levi Morrell MD to Jose Rosenthal and understanding confirmed on 12/15/2022 12:40:45 (ET). Electronically Signed: Levi Morrell MD at 12:41 EDT , ADDENDUM: 12/15/22 1248 IMPRESSION: Normal CTA Head and neck with contrast. N.B. : The above Results were Read Back by Levi Morrell MD to Jose Rosenthal and understanding confirmed on 12/15/2022 12:40:45 (ET). Electronically Signed: Levi Morrell MD at 12:41 EDT , Chest X-Ray 12/15/22 12:50 IMPRESSION: No acute abnormality is seen. Electronically Signed: Levi Morrell MD at 13:00 EDT , Assessment & Plan Assessment/Plan (1) Arm paresthesia, right: (2) Facial paresthesia: PLAN: Plan Patient is a 47-year-old gentleman presenting with right facial and upper extremity numbness 1. Transient ischemic attack ? Patient has been admitted to monitored bed for further management. Ordered neurochecks every 4 hours, patient was placed on continuous telemetry monitoring. Ordered MRI of the head without contrast to either rule in or rule out acute ischemic stroke. CT angio of the head and neck obtained in the ED came back negative. 2D echo was also ordered as part of patient's evaluation. Patient subsequently started on antiplatelet therapy as well as high-dose statin therapy ordered fasting lipid for a.m. 2. Exertional dyspnea ? Patient is scheduled to undergo elective left heart catheterization at [facility] on 12/23/2022 3. Diabetes mellitus type II -patient's oral hypoglycemics held. Placed on long acting insulin, Accu-Cheks a.c. and at bedtime and covered with sliding scale insulin 4. Essential hypertension ? Patient blood pressure was markedly elevated however given patient presenting symptoms will allow for some permissive hypertension until acute CVA is ruled out 5. Dyslipidemia -Patient is on statin therapy, continued at home dose 6. Obstructive sleep apnea ? Patient to undergo sleep study as outpatient for initiation of PAP therapy at night 7. Class III obesity with BMI of 48 ? Complicating care, weight loss advised 8. DVT prophylaxis - On enoxaparin Time spent in the patient's overall evaluation,decision-making process, review of diagnostic data, adjustment of management, discussion with other providers, nursing nursing and ancillary staff involved in patient's care documentation, 75 minutes Charges/Coding Visit Charges Inpatient E&M: 67020 Init Hosp L3
--- NOTE | 2022-12-15 13:16 | CHAPLAIN ---
Type of Pastoral Visit ___ Initial Visit ___ Follow-up Visit ___ On-call Visit ___ General Patient Visit ___ Spiritual Assessment ___ Family Conference ___ Bereavement _x__ Rapid Response ___ Code Blue ___ Other (describe below) Pastoral Care Referral From ___ Patient ___ Family ___ Nurse ___ Physician ___ Can Maker ___ Slimer _x__ Other (describe below) Sacrament/Intervention ___ Active listening ___ Anointing ___ Sikh ___ Bereavement ___ Communion ___ Prema exploration ___ ___ Life review ___ Prayer ___ Reconciliation ___ Sacrament of Sick _x__ Supportive presence ___ Wedding ___ Other (describe below) Pastoral Comments patient was taken to CT and spouse was waiting in the room; offered presence and support to spouse; spouse declines any needs; watched patient go to CT and he was alert and talking; spouse reports no further concerns or need; gave update on patient to SW
--- NOTE | 2022-12-15 14:11 | ED.RN ---
NIH NOT COMPLETED AT 1345 D/T IN ROUTE TO U
[2022-12-15 15:10] LABS: Troponin-I HS 17 pg/mL (3.0-78.0)
[2022-12-15] MEDS: 0.9% Normal Saline 1,000 ML 100 ML IV (15:59)
--- NOTE | 2022-12-15 16:05 | EKG12_ITS ---
Test Reason : ADMISSION Blood Pressure : / mmHG Vent. Rate : 061 BPM Atrial Rate : 061 BPM P-R Int : 172 ms QRS Dur : 156 ms QT Int : 430 ms P-R-T Axes : 020 -01 001 degrees QTc Int : 432 ms Normal sinus rhythm Right bundle branch block Abnormal ECG When compared with ECG of 15-DEC-2022 12:53, MANUAL COMPARISON REQUIRED, DATA IS UNCONFIRMED Confirmed by PRAVEEN HOLCOMB, LUX ([id number]), index editor YAMINI HORTON ([id number]) on 12/19/2022 10:47:04 AM Referred By: MYRANDA Confirmed By:LUX MORTON MD
[2022-12-15] MEDS: Nitroglycerin (INPATIENT USE) 0.4 MG TAB.SUBL SL (16:41)
[2022-12-15 17:10] LABS: Bedside Glucose 133 mg/dL (74-106)
[2022-12-15 19:59] LABS: Troponin-I HS 16 pg/mL (3.0-78.0)
[2022-12-15] MEDS: Insulin Lispro 100 UNIT/ML INSULN.PEN SC (23:27)
[2022-12-15] MEDS: Insulin Glargine-YFGN 100 UNIT/ML Pen 10 UNIT SC (23:30)
[2022-12-15] MEDS: Enoxaparin 40 MG/0.4 ML Syringe SC (23:31)
[2022-12-15] MEDS: Atorvastatin Calcium 80 MG Tablet PO (23:33)
[2022-12-15] MEDS: Famotidine 20 MG Tablet PO (23:33)
[2022-12-15 23:54] LABS: Bedside Glucose 190 mg/dL (74-106)
[2022-12-16] VITALS (7 sets, daily range): BP systolic 160–174; BP diastolic 71–88; PULSE 61–66; RESP 16–18; TEMP 36.6–36.7; O2SAT 96–99; BMI 51.4
[2022-12-16] MEDS: 0.9% Normal Saline 1,000 ML 100 ML IV (03:22)
--- NOTE | 2022-12-16 05:55 | EKG12_ITS ---
Test Reason : AM EKG Blood Pressure : / mmHG Vent. Rate : 068 BPM Atrial Rate : 068 BPM P-R Int : 166 ms QRS Dur : 154 ms QT Int : 424 ms P-R-T Axes : 013 012 003 degrees QTc Int : 450 ms Normal sinus rhythm Right bundle branch block Abnormal ECG When compared with ECG of 15-DEC-2022 14:00, MANUAL COMPARISON REQUIRED, DATA IS UNCONFIRMED Confirmed by PRAVEEN HOLCOMB, LUX ([id number]), film and video editor YAMINI HORTON ([id number]) on 12/19/2022 10:44:52 AM Referred By: Confirmed By:LUX MORTON MD
[2022-12-16 06:28] LABS: Absolute Lymphocyte Count 1.74 X10^3/uL (0.83-4.51); Absolute Neutrophil Count 5.5 X10^3/uL (2.0-7.7); Basophil# 0.04 X10^3/uL; Basophil% 0.5 % (0-1); Eosinophil# 0.19 X10^3/uL; Eosinophils% 2.3 % (0-5); Hematocrit 39.7 % (40-54); Hemoglobin 12.5 g/dL (13.0-16.5); Lymphocyte # 1.74 X10^3/ul (0.83-4.51); Lymphocyte % 21.1 % (19-41); Mean Corp Hgb Conc 31.5 g/dL (32-36); Mean Corpuscular Hgb 25.5 pg (27.0-32.0); Mean Corpuscular Volume 80.9 fL (80-94); Mean Platelet Vol. 10.6 fl (6.2-12.0); Monocyte# 0.69 X10^3/uL; Monocyte% 8.4 % (0-10); NRBC Flagged by Analyzer 0 % (0-5); Neutrophil # 5.54 X10^3/uL (2.7-7.7); Neutrophil % 67.2 % (47-70); Platelet Count 177 K/mm3 (150-450); RBC Distribution Width CV 14.8 % (11.6-14.6); RBC Distribution Width SD 43.3 fl (35.1-43.9); Red Blood Count 4.91 M/mm3 (4.6-6.2); White Blood Count 8.2 K/mm3 (4.4-11.0)
[2022-12-16] MEDS: Aspirin 81 MG TAB.CHEW PO (06:30)
[2022-12-16 07:02] LABS: Bedside Glucose 203 mg/dL (74-106)
[2022-12-16] MEDS: Losartan Potassium 100 MG Tablet PO (07:08)
[2022-12-16 07:32] LABS: AST(SGOT) 17 U/L (15-37); Alanine Aminotransfer ALT/SGPT 37 U/L (16-61); Albumin, Serum 2.9 g/dL (3.2-5.0); Alkaline Phosphatase 79 U/L (45-117); Anion Gap 4 (5-15); BUN 19 mg/dL (7-18); BUN/Creat Ratio 21.6 RATIO (10-20); Bilirubin, Direct 0.12 mg/dL (0.00-0.30); Calcium,Total 9.4 mg/dL (8.5-10.1); Chloride 107 mmol/L (98-107); Cholesterol 137 mg/dL (200); Creatinine, Serum 0.88 mg/dL (0.70-1.30); EST Glomerular Filtration Rate 98 mL/min (>60); Est Glom Filt Rate - Afr Amer 119 mL/min (>60); Globulin 3.9 g/dL (2.2-4.2); Glucose 198 mg/dL (74-106); High Density Lipoprotein 25 mg/dL; Phosphorus 3.7 mg/dL (2.5-4.9); Potassium 4.1 mmol/L (3.5-5.1); Protein, Total 6.8 g/dL (6.4-8.2); Sodium Level 138 mmol/L (136-145); Triglycerides 232 mg/dL; Very Low Density Lipoprotein 46 mg/dL (5-40)
--- NOTE | 2022-12-16 08:11 | PCM.PN.HOSP ---
Reason for Visit Reason for Visit: Diagnoses Paresthesia of skin (12/15/22) Subjective Subjective Patient is a 47-year-old gentleman admitted with right upper extremity paresthesias. Imaging studies obtained on admission was unremarkable subsequently underwent MRI of the brain which was negative for acute CVA Objective Data Objective Data Vital Signs: Vital Signs Temp Pulse Resp BP Pulse Ox O2 Del Method O2 Flow Rate 97.9 F 66 18 174/76 H 99 Nasal Cannula 2 12/16/22 05:50 12/16/22 05:50 12/16/22 05:50 12/16/22 05:50 12/16/22 05:50 12/16/22 05:50 12/16/22 05:50 Oxygen Flow Rate (L/min) 2 Oxygen Delivery Method Nasal Cannula Weight: 162.6 kg Body Mass Index (BMI) 51.4 Intake & Output: Intake and Output for Last 24 Hours 12/14/22 12/15/22 12/16/22 23:59 23:59 23:59 Intake Total 586.67 / 586.67 896.67 / 896.67 Balance 586.67 / 586.67 896.67 / 896.67 Lab / Micro Data 12/16/22 05:37 12/16/22 05:37 Labs: Laboratory Results - last 24 hr 12/15/22 12:15: WBC 9.9, RBC 5.34, Hgb 13.4, Hct 42.5, MCV 79.6 L, MCH 25.1 L, MCHC 31.5 L, RDW Std Deviation 42.0, RDW Coeff of Osorio 14.7 H, Plt Count 219, MPV 10.0, Immature Gran % (Auto) 0.500, Neut % (Auto) 73.2 H, Lymph % (Auto) 16.0 L, [place] % (Auto) 8.5, Eos % (Auto) 1.5, Baso % (Auto) 0.3, Absolute Neuts (auto) 7.2, Absolute Lymphs (auto) 1.58, Nucleated RBC % 0, PT 14.3, INR 1.1, APTT 39.9 H, Sodium 138, Potassium 4.2, Chloride 104, Carbon Dioxide 28.0, Anion Gap 6, BUN 25 H, Creatinine 1.25, Estim Creat Clear Calc 81.68, Est GFR (MDRD) Af Amer 79, Est GFR (MDRD) Non-Af 65, BUN/Creatinine Ratio 20.0, Glucose 237 H, Calcium 10.0, Troponin I High Sens 19 12/15/22 12:24: POC Glucose 232 H 12/15/22 14:40: Troponin I High Sens 17 12/15/22 16:12: POC Glucose 133 H 12/15/22 18:40: Troponin I High Sens 16 12/15/22 23:21: POC Glucose 190 H 12/16/22 05:37: WBC 8.2, RBC 4.91, Hgb 12.5 L, Hct 39.7 L, MCV 80.9, MCH 25.5 L, MCHC 31.5 L, RDW Std Deviation 43.3, RDW Coeff of Osorio 14.8 H, Plt Count 177, MPV 10.6, Immature Gran % (Auto) 0.500, Neut % (Auto) 67.2, Lymph % (Auto) 21.1, [place] % (Auto) 8.4, Eos % (Auto) 2.3, Baso % (Auto) 0.5, Absolute Neuts (auto) 5.5, Absolute Lymphs (auto) 1.74, Nucleated RBC % 0, Sodium 138, Potassium 4.1, Chloride 107, Carbon Dioxide 27.0, Anion Gap 4 L, BUN 19 H, Creatinine 0.88, Estim Creat Clear Calc 106.00, Est GFR (MDRD) Af Amer 119, Est GFR (MDRD) Non-Af 98, BUN/Creatinine Ratio 21.6 H, Glucose 198 H, Calcium 9.4, Phosphorus 3.7, Magnesium 2.0, Total Bilirubin 0.50, Direct Bilirubin 0.12, AST 17, ALT 37, Alkaline Phosphatase 79, Total Protein 6.8, Albumin 2.9 L, Globulin 3.9, Triglycerides 232 H, Cholesterol 137, LDL Cholesterol 66, VLDL Cholesterol 46 H, HDL Cholesterol 25 L, TSH 1.20 12/16/22 06:32: POC Glucose 203 H Radiography Diagnostic Testing: Radiology Impression Brain CT 12/15/22 12:08 IMPRESSION: Chronic involutional changes of the brain. N.B. : The above Results were Read Back by Levi Morrell MD to Dr Ariadna MD, and understanding confirmed on 12/15/2022 12:28:58 (ET). Electronically Signed: Levi Morrell MD at 12:30 EDT , ADDENDUM: 12/15/22 1237 IMPRESSION: Chronic involutional changes of the brain. N.B. : The above Results were Read Back by Levi Morrell MD to Dr Ariadna MD, and understanding confirmed on 12/15/2022 12:28:58 (ET). Electronically Signed: Levi Morrell MD at 12:30 EDT , Head/Neck CTA 12/15/22 12:16 IMPRESSION: Normal CTA Head and neck with contrast. N.B. : The above Results were Read Back by Levi Morrell MD to Jose Rosenthal and understanding confirmed on 12/15/2022 12:40:45 (ET). Electronically Signed: Levi Morrell MD at 12:41 EDT , ADDENDUM: 12/15/22 1248 IMPRESSION: Normal CTA Head and neck with contrast. N.B. : The above Results were Read Back by Levi Morrell MD to Jose Rosenthal and understanding confirmed on 12/15/2022 12:40:45 (ET). Electronically Signed: Levi Morrell MD at 12:41 EDT , Chest X-Ray 12/15/22 12:50 IMPRESSION: No acute abnormality is seen. Electronically Signed: Levi Morrell MD at 13:00 EDT , Brain MRI 12/15/22 13:14 IMPRESSION: Nonspecific bowel atrophy for stated age. Otherwise no significant abnormalities. Electronically Signed: Erasto Blankenship MD at 19:15 EDT , Echocardiogram 12/15/22 13:14 Interpretation Summary Limited transthoracic echocardiogram TDS Overall LV systolic function is within normal Definity used as a contrast echo. No previous echocardiogram to compare. Consider to evaluate further with JOSE GUADALUPE if clinically indicated. Ordering Physician: Anthony Pablo Referring Physician: EL RUANO Performed By: Kathrine Morgan and Student Rhythm Strip Rhythm Strip: Sinus Rhythm Rate: 70 Ectopy: None Physical Exam Narrative GENERAL: cooperative HEENT: Atraumatic; normocephalic EYES; Anicteric, Normal Conjunctiva NECK; supple, normal thyroid, RESPIRATORY: Diminished to auscultation CARDIOVASCULAR: Regular S1 S2, GI: soft, normoactive bowel sounds, : No Renal angle tenderness; EXTREMITIES: No edema, no clubbing, MUSCULOSKELETAL: no muscle wasting NEURO: Awake; no lateralizing signs. SKIN: No Rash PSYCH; Flat affect Assessment & Plan Assessment/Plan (1) Arm paresthesia, right: (2) Facial paresthesia: PLAN: Plan Patient is a 47-year-old gentleman presenting with right facial and upper extremity numbness 1. Transient ischemic attack ? Patient has been admitted to monitored bed for further management. Ordered neurochecks every 4 hours, patient was placed on continuous telemetry monitoring. Ordered MRI of the head without contrast to either rule in or rule out acute ischemic stroke. CT angio of the head and neck obtained in the ED came back negative. 2D echo was also ordered as part of patient's evaluation. Patient subsequently started on antiplatelet therapy as well as high-dose statin therapy ordered fasting lipid for a.m. ? 12/16/2022 MRI obtained did show nonspecific bowel atrophy for stated age. Otherwise no significant abnormalities. 2. Exertional dyspnea ? Patient is scheduled to undergo elective left heart catheterization at [facility] on 12/23/2022 3. Diabetes mellitus type II -patient's oral hypoglycemics held. Placed on long acting insulin, Accu-Cheks a.c. and at bedtime and covered with sliding scale insulin 4. Essential hypertension ? Patient blood pressure was markedly elevated however given patient presenting symptoms will allow for some permissive hypertension until acute CVA is ruled out 5. Dyslipidemia -Patient is on statin therapy, continued at home dose 6. Obstructive sleep apnea ? Patient to undergo sleep study as outpatient for initiation of PAP therapy at night 7. Class III obesity with BMI of 48 ? Complicating care, weight loss advised 8. DVT prophylaxis - On enoxaparin Time spent in the patient's overall evaluation,decision-making process, review of diagnostic data, adjustment of management, discussion with other providers, nursing nursing and ancillary staff involved in patient's care documentation, 35 minutes Charges/Coding Visit Charges Inpatient E&M: 53965 [facility] Hosp L2
[2022-12-16] MEDS: Enoxaparin 40 MG/0.4 ML Syringe SC (08:40)
--- NOTE | 2022-12-16 10:29 | PCM.DC.SUM ---
Providers Date of Admission: 12/15/22 Date of Discharge: 12/16/22 Primary Care Physician: Dr. Shola Ruano MD Reason For Visit: TIA Diagnosis Discharge Diagnosis (1) Arm paresthesia, right: Status: Acute Code(s): R20.2 - Paresthesia of skin (2) Facial paresthesia: Status: Acute Code(s): R20.2 - Paresthesia of skin Plan Patient is a 47-year-old gentleman presenting with right facial and upper extremity numbness 1. Transient ischemic attack ? Patient has been admitted to monitored bed for further management. Ordered neurochecks every 4 hours, patient was placed on continuous telemetry monitoring. Ordered MRI of the head without contrast to either rule in or rule out acute ischemic stroke. CT angio of the head and neck obtained in the ED came back negative. 2D echo was also ordered as part of patient's evaluation. Patient subsequently started on antiplatelet therapy as well as high-dose statin therapy ordered fasting lipid for a.m. ? 12/16/2022 MRI obtained did show nonspecific bowel atrophy for stated age. Otherwise no significant abnormalities. 2. Exertional dyspnea ? Patient is scheduled to undergo elective left heart catheterization at [facility] on 12/23/2022 3. Diabetes mellitus type II -patient's oral hypoglycemics held. Placed on long acting insulin, Accu-Cheks a.c. and at bedtime and covered with sliding scale insulin 4. Essential hypertension ? Patient blood pressure was markedly elevated however given patient presenting symptoms will allow for some permissive hypertension until acute CVA is ruled out ? Patient blood pressure control was not optimal added amlodipine to his antihypertensive 5. Dyslipidemia -Patient is on statin therapy, continued at home dose 6. Obstructive sleep apnea ? Patient to undergo sleep study as outpatient for initiation of PAP therapy at night 7. Class III obesity with BMI of 48 ? Complicating care, weight loss advised 8. DVT prophylaxis - On enoxaparin Time spent in the patient's overall evaluation,decision-making process, review of diagnostic data, adjustment of management, discussion with other providers, nursing nursing and ancillary staff involved in patient's care documentation, 35 minutes Medications at Discharge Home Medications cyanocobalamin (vitamin B-12) 5,000 mcg disintegrating tablet 5,000 mcg PO DAILY 04/20/17 glimepiride 4 mg tablet 4 mg PO DAILY DIABETES 04/20/17 multivitamin (Multiple Vitamins tablet) 1 ea PO DAILY 04/20/17 simvastatin 20 mg tablet 80 mg PO QHS 04/20/17 hydrocodone-acetaminophen 5-325mg 5mg-325mg ([place]) 1 - 2 ea (1 - 2 x 5-325 mg) PO Q6H PRN PRN Pain #14 tabs 04/21/17 atenolol 100 mg tablet 100 mg PO Q24H 12/15/22 hydralazine 50 mg tablet 50 mg PO Q6H 12/15/22 insulin NPH isoph U-100 human 100 unit/mL (3 mL) subcutaneous pen (Novolin N FlexPen) 86 unit subcut BID 12/15/22 insulin regular human 100 unit/mL (3 mL) subcutaneous pen (Novolin R FlexPen) 46 unit subcut TID 12/15/22 sildenafil 50 mg tablet 50 mg PO Q24H PRN sexual activity 12/15/22 valsartan 320 mg-hydrochlorothiazide 25 mg tablet 1 tab PO DAILY 12/15/22 amlodipine 10 mg tablet 10 mg PO DAILY #90 tabs 12/16/22 Hospital Course Summary of Care Provided Minutes Spent on Discharge: 35 Physical Exam Narrative GENERAL: cooperative HEENT: Atraumatic; normocephalic EYES; Anicteric, Normal Conjunctiva NECK; supple, normal thyroid, RESPIRATORY: Diminished to auscultation CARDIOVASCULAR: Regular S1 S2, GI: soft, normoactive bowel sounds, : No Renal angle tenderness; EXTREMITIES: No edema, no clubbing, MUSCULOSKELETAL: no muscle wasting NEURO: Awake; no lateralizing signs. SKIN: No Rash PSYCH; Flat affect Weight / BMI Weight Weight: 162.6 kg Body Mass Index (BMI) 51.4 ABG / Lab / Microbiology Data 12/16/22 05:37 12/16/22 05:37 Laboratory: Laboratory Results - last 24 hr 12/15/22 12:15: WBC 9.9, RBC 5.34, Hgb 13.4, Hct 42.5, MCV 79.6 L, MCH 25.1 L, MCHC 31.5 L, RDW Std Deviation 42.0, RDW Coeff of Osorio 14.7 H, Plt Count 219, MPV 10.0, Immature Gran % (Auto) 0.500, Neut % (Auto) 73.2 H, Lymph % (Auto) 16.0 L, [place] % (Auto) 8.5, Eos % (Auto) 1.5, Baso % (Auto) 0.3, Absolute Neuts (auto) 7.2, Absolute Lymphs (auto) 1.58, Nucleated RBC % 0, PT 14.3, INR 1.1, APTT 39.9 H, Sodium 138, Potassium 4.2, Chloride 104, Carbon Dioxide 28.0, Anion Gap 6, BUN 25 H, Creatinine 1.25, Estim Creat Clear Calc 81.68, Est GFR (MDRD) Af Amer 79, Est GFR (MDRD) Non-Af 65, BUN/Creatinine Ratio 20.0, Glucose 237 H, Calcium 10.0, Troponin I High Sens 19 12/15/22 12:24: POC Glucose 232 H 12/15/22 14:40: Troponin I High Sens 17 12/15/22 16:12: POC Glucose 133 H 12/15/22 18:40: Troponin I High Sens 16 12/15/22 23:21: POC Glucose 190 H 12/16/22 05:37: WBC 8.2, RBC 4.91, Hgb 12.5 L, Hct 39.7 L, MCV 80.9, MCH 25.5 L, MCHC 31.5 L, RDW Std Deviation 43.3, RDW Coeff of Osorio 14.8 H, Plt Count 177, MPV 10.6, Immature Gran % (Auto) 0.500, Neut % (Auto) 67.2, Lymph % (Auto) 21.1, [place] % (Auto) 8.4, Eos % (Auto) 2.3, Baso % (Auto) 0.5, Absolute Neuts (auto) 5.5, Absolute Lymphs (auto) 1.74, Nucleated RBC % 0, Sodium 138, Potassium 4.1, Chloride 107, Carbon Dioxide 27.0, Anion Gap 4 L, BUN 19 H, Creatinine 0.88, Estim Creat Clear Calc 106.00, Est GFR (MDRD) Af Amer 119, Est GFR (MDRD) Non-Af 98, BUN/Creatinine Ratio 21.6 H, Glucose 198 H, Calcium 9.4, Phosphorus 3.7, Magnesium 2.0, Total Bilirubin 0.50, Direct Bilirubin 0.12, AST 17, ALT 37, Alkaline Phosphatase 79, Total Protein 6.8, Albumin 2.9 L, Globulin 3.9, Triglycerides 232 H, Cholesterol 137, LDL Cholesterol 66, VLDL Cholesterol 46 H, HDL Cholesterol 25 L, TSH 1.20 12/16/22 06:32: POC Glucose 203 H Radiography Diagnostic Testing: Radiology Impression Brain CT 12/15/22 12:08 IMPRESSION: Chronic involutional changes of the brain. N.B. : The above Results were Read Back by Levi Morrell MD to Dr Ariadna MD, and understanding confirmed on 12/15/2022 12:28:58 (ET). Electronically Signed: Levi Morrell MD at 12:30 EDT , ADDENDUM: 12/15/22 1237 IMPRESSION: Chronic involutional changes of the brain. N.B. : The above Results were Read Back by Levi Morrell MD to Dr Ariadna MD, and understanding confirmed on 12/15/2022 12:28:58 (ET). Electronically Signed: Levi Morrell MD at 12:30 EDT , Head/Neck CTA 12/15/22 12:16 IMPRESSION: Normal CTA Head and neck with contrast. N.B. : The above Results were Read Back by Levi Morrell MD to Jose Rosenthal and understanding confirmed on 12/15/2022 12:40:45 (ET). Electronically Signed: Levi Morrell MD at 12:41 EDT , ADDENDUM: 12/15/22 1248 IMPRESSION: Normal CTA Head and neck with contrast. N.B. : The above Results were Read Back by Levi Morrell MD to Jose Rosenthal and understanding confirmed on 12/15/2022 12:40:45 (ET). Electronically Signed: Levi Morrell MD at 12:41 EDT , Chest X-Ray 12/15/22 12:50 IMPRESSION: No acute abnormality is seen. Electronically Signed: Levi Morrell MD at 13:00 EDT , Brain MRI 12/15/22 13:14 IMPRESSION: Nonspecific bowel atrophy for stated age. Otherwise no significant abnormalities. Electronically Signed: Erasto Blankenship MD at 19:15 EDT , Echocardiogram 12/15/22 13:14 Interpretation Summary Limited transthoracic echocardiogram TDS Overall LV systolic function is within normal Definity used as a contrast echo. No previous echocardiogram to compare. Consider to evaluate further with JOSE GUADALUPE if clinically indicated. Ordering Physician: Anthony Pablo Referring Physician: EL RUANO Performed By: Kathrine Morgan and Student D/C Instructions Discharge Diet: Low fat / Low cholesterol and 1800 Calorie Control Diet Discharge Activity: Return to Normal Activity Call your doctor if you observe: Fever of 101 or Higher, Shortness of breath, Fainting spells and Chest pain Meaningful Use Info Meaningful Use Diagnoses (Choose all that apply): None applicable Discharge Plan Admission Admit Date/Time: 12/15/22 13:04 Attending Provider: Anthony Pablo Primary Care Provider: Shola Ruano Discharge Orders/Prescriptions Prescriptions: New amlodipine 10 mg tablet 10 mg PO DAILY Qty: 90 0RF Continued multivitamin [Multiple Vitamins] 1 EACH tablet 1 ea PO DAILY simvastatin 20 MG tablet 80 mg PO QHS glimepiride 4 MG tablet 4 mg PO DAILY cyanocobalamin (vitamin B-12) 5,000 MCG tablet,disintegrating 5,000 mcg PO DAILY hydrocodone-acetaminophen [[place]] 1 EACH tablet 1 - 2 ea PO Q6H PRN PRN (Reason: Pain) Qty: 14 0RF atenolol 100 mg tablet 100 mg PO Q24H Patient Comments: TAKE 1 TABLET BY MOUTH EVERY DAY hydralazine 50 mg tablet 50 mg PO Q6H Patient Comments: TAKE 1 TABLET BY MOUTH 4 TIMES A DAY sildenafil 50 mg tablet 50 mg PO Q24H PRN (Reason: sexual activity) Patient Comments: TAKE 1 TABLET BY MOUTH EVERY DAY NEEDED Novolin R FlexPen 100 unit/mL (3 mL) insulin pen 46 unit SUBCUT TID Patient Comments: 1 pen injector subcutaneously as directed Novolin N FlexPen 100 unit/mL (3 mL) insulin pen 86 unit SUBCUT BID Patient Comments: 1 pen injector subcutaneously as directed valsartan-hydrochlorothiazide 320-25 mg tablet 1 tab PO DAILY Patient Comments: TAKE 1 TABLET BY MOUTH EVERY DAY Discontinued losartan-hydrochlorothiazide 1 EACH tablet 1 ea PO DAILY ciprofloxacin HCl 500 MG tablet 500 mg PO BID Qty: 7 0RF Referrals / Follow Up: Shola Ruano MD [Primary Care Provider] - Within 1 Week Disposition Disposition (needs filled in before D/C Order can be placed): Home, Self Care Charges/Coding Visit Charges Inpatient E&M: 89561 Disch Hosp >30min
[2022-12-16] MEDS: Insulin Lispro 100 UNIT/ML INSULN.PEN SC (11:06)
[2022-12-16 11:26] LABS: Bedside Glucose 268 mg/dL (74-106)
--- NOTE | 2022-12-16 12:11 | PHA.DC.MC.R ---
Pharmacy [facility] has performed discharge medication reconciliation and counseling for this patient. The patient was counseled on the following discharge medications and changes in medications for homegoing were reviewed. 1. NORVASC The Reason for Use, instructions for use, and potential side effects were reviewed for all new medications. The patient's questions regarding all of their medications were answered. The patient was able to verbally demonstrate an understanding of their discharge medications. The patient's discharge medication list was reviewed for discrepancies and discrepancies were resolved. Patient counselled by Rayray Chao PharmD Candidate Medications at Discharge Home Medications cyanocobalamin (vitamin B-12) 5,000 mcg disintegrating tablet 5,000 mcg PO DAILY 04/20/17 glimepiride 4 mg tablet 4 mg PO DAILY DIABETES 04/20/17 multivitamin (Multiple Vitamins tablet) 1 ea PO DAILY 04/20/17 simvastatin 20 mg tablet 80 mg PO QHS 04/20/17 hydrocodone-acetaminophen 5-325mg 5mg-325mg ([place]) 1 - 2 ea (1 - 2 x 5-325 mg) PO Q6H PRN PRN Pain #14 tabs 04/21/17 atenolol 100 mg tablet 100 mg PO Q24H 12/15/22 hydralazine 50 mg tablet 50 mg PO Q6H 12/15/22 insulin NPH isoph U-100 human 100 unit/mL (3 mL) subcutaneous pen (Novolin N FlexPen) 86 unit subcut BID 12/15/22 insulin regular human 100 unit/mL (3 mL) subcutaneous pen (Novolin R FlexPen) 46 unit subcut TID 12/15/22 sildenafil 50 mg tablet 50 mg PO Q24H PRN sexual activity 12/15/22 valsartan 320 mg-hydrochlorothiazide 25 mg tablet 1 tab PO DAILY 12/15/22 amlodipine 10 mg tablet 10 mg PO DAILY #90 tabs 12/16/22
--- NOTE | 2022-12-16 13:51 | NURSING ---
discharge orders reviewed with patient. Verbalized understanding. Transport called to transfer patient via wheelchair. Transport to home via private car.
== END 2022-12-16 13:54 | disposition home or self-care (01) ==
LOC: ED 12:55 → PCU 13:16
PROVIDERS: Admitting Provider Internal Medicine; Emergency Provider Emergency Medicine; PCP Family Medicine; Visit Provider Internal Medicine
DX: G45.9 Transient cerebral ischemic attack, unspecified (principal); E11.65 Type 2 diabetes mellitus with hyperglycemia; Z68.42 Body mass index [BMI] 45.0-49.9, adult; Z87.891 Personal history of nicotine dependence; Z79.84 Long term (current) use of oral hypoglycemic drugs; R20.2 Paresthesia of skin; R51.9 Headache, unspecified; I10 Essential (primary) hypertension; Z79.899 Other long term (current) drug therapy; R06.09 Other forms of dyspnea; E66.9 Obesity, unspecified; G47.33 Obstructive sleep apnea (adult) (pediatric); E78.5 Hyperlipidemia, unspecified; R94.31 Abnormal electrocardiogram [ECG] [EKG]; I45.10 Unspecified right bundle-branch block
CPT/HCPCS: 36415; 70450; 70496; 70498; 70551; 71045; 80048; 80061; 80076; 82962; 83735; 84100; 84443; 84484; 85025; 85610; 85730; 93005; 93306; 94668; 94762; 96361; 96372; 96374; 97162; 97166; 97530; 97802; 99221; 99252; 99284; J7030; Q9957; Q9967; A4216; C8929; G0378; G0463

== ENCOUNTER 2023-08-06 13:33 | Emergency (ER) | payer OTHER, SELFPAY ==
[2023-08-06 13:33] VITALS: BP 177/83; PULSE 79; RESP 20; TEMP 36.3; O2SAT 98; BMI 49.1
[2023-08-06 13:41] VITALS: BP 154/74; PULSE 74
--- NOTE | 2023-08-06 13:44 | ED.VIS.DYS ---
HPI History of Present Illness Chief Complaint: Cough [facility] Medical History (Updated 08/06/23 @ 14:51 by Vernell Layne) Complications Diabetes HTN (hypertension) Home Medications cyanocobalamin (vitamin B-12) 5,000 mcg disintegrating tablet 5,000 mcg PO DAILY 04/20/17 [History Last Taken 12/14/22] glimepiride 4 mg tablet 4 mg PO DAILY DIABETES 04/20/17 [History Last Taken Unknown] multivitamin (Multiple Vitamins tablet) 1 ea PO DAILY 04/20/17 [History Last Taken 12/14/22] simvastatin 20 mg tablet 80 mg PO QHS 04/20/17 [History Last Taken 12/14/22] hydrocodone-acetaminophen 5-325mg 5mg-325mg ([place]) 1 - 2 ea (1 - 2 x 5-325 mg) PO Q6H PRN PRN Pain #14 tabs 04/21/17 [Rx Last Taken Unknown] atenolol 100 mg tablet 100 mg PO Q24H 12/15/22 [History Last Taken 12/15/22] hydralazine 50 mg tablet 50 mg PO Q6H 12/15/22 [History Last Taken 12/15/22] insulin NPH isoph U-100 human 100 unit/mL (3 mL) subcutaneous pen (Novolin N FlexPen) 86 unit subcut BID 12/15/22 [History Last Taken 12/15/22] insulin regular human 100 unit/mL (3 mL) subcutaneous pen (Novolin R FlexPen) 46 unit subcut TID 12/15/22 [History Last Taken 12/15/22] sildenafil 50 mg tablet 50 mg PO Q24H PRN sexual activity 12/15/22 [History Last Taken 11/27/22] valsartan 320 mg-hydrochlorothiazide 25 mg tablet 1 tab PO DAILY 12/15/22 [History Last Taken 12/15/22] amlodipine 10 mg tablet 10 mg PO DAILY #90 tabs 12/16/22 [Rx Last Taken Unknown] Allergy/AdvReac Type Severity Reaction Status Date / Time Penicillins [PCN] AdvReac ABDOMINAL Verified 08/06/23 13:36 PAIN, SEVERE DIARRHEA Surgical History (Updated 08/06/23 @ 14:51 by Vernell Layne) History of open heart surgery Social History (Updated 08/06/23 @ 14:51 by Vernell Layne) household members: spouse Smoking Status: Former smoker EXAM Physical Exam Const Vital Signs: 08/06/23 13:33 08/06/23 13:41 08/06/23 14:52 Temperature 97.4 F L Temperature Source Temporal Pulse Rate 79 74 Respiratory Rate 20 H Respiratory Effort Normal Respiratory Depth Normal Respiratory Pattern Normal Blood Pressure 177/83 H 154/74 H Blood Pressure Mean 114 100 Pulse Ox 98 Oxygen Delivery Method Room Air Room Air 08/06/23 16:11 08/06/23 16:11 Temperature 98 F Temperature Source Pulse Rate 69 69 Respiratory Rate 18 18 Respiratory Effort Respiratory Depth Respiratory Pattern Blood Pressure 115/61 115/61 Blood Pressure Mean 79 79 Pulse Ox 98 98 Oxygen Delivery Method MDM MDM MDM Narrative Medical decision making narrative: HISTORY OF PRESENT ILLNESS: 48-year-old male presents with cough, stuffy nose. No sick contact and his . Notes hemoptysis today. Notes he had a double bypass in January. The patient denies recent surgery in the last 4 weeks or immobilization in the last 3 days, denies previous diagnosis of DVT or PE, unilateral leg swelling or malignancy with treatment the last 6 months or palliative. No estrogen use noted. REVIEW OF SYSTEMS: Pertinent positives: Cough, hemoptysis, congestion Pertinent negatives: Chest pain, shortness of breath, leg swelling PHYSICAL EXAM: Nursing triage notes reviewed, Vital signs reviewed Constitutional: please see mdm HENT: MMM Eyes: Pupils equal round and reactive to light, Extraocular muscles intact Neck: No stridor, no JVD, full neck ROM Lungs: Clear to auscultation, No wheezing or rales. No increased work of breathing, no conversational dyspnea, no accessory muscle use, no nasal flaring. No respiratory distress noted Heart: Regular rate and rhythm, No murmurs, No rubs and No gallops, 2+ distal pulses (radial, femoral, posterior tibial) in all extremities. Midline surgical scar of the sternum is clean dry and intact Abdomen: Soft, there is no tenderness, rigidity, rebound or guarding, no obvious peritoneal signs, no palpable pulsatile abdominal masses, no auscultated abdominal bruit : No CVAT Extremities: No edema Neuro: No focal neurological deficits, cranial nerves II through XII intact, 5/5 strength in all extremities. Intact sensation to light touch in all extremities, 2+ reflexes bilateral patella tendons. Normal gait. No ataxia. Skin: No rash or lesions noted MEDICAL DECISION MAKING: Chief Complaint: Cough, hemoptysis External records reviewed: Recent advanced imaging of the chest Factors affecting care: n hypertension, diabetes, hyperlipidemia, CAD on Eliquis MDM Narrative: Patient was hemodynamically stable, afebrile, nontoxic-appearing. Exam without focal cardiopulmonary normalities. No stigmata of VTE on exam. I considered the following differential diagnosis: COVID, flu, pneumonia. Patient's COVID swab is positive. I have personally reviewed the patient's chest x-ray. Chest x-ray is unremarkable for pulmonary edema, pneumothorax, pneumonia or focal cardiopulmonary abnormality. I considered pulmonary embolism however thought this was less likely given his low risk Wells score and his positive COVID test. He is also currently on eliquis and is compliant. COVID 19 is the likely cause of his presentation today. No indication for advanced imaging of the chest at this time. My suspicion and impression were discussed with the patient and family. Strict return precautions were discussed as well. The patient and/or family, caregivers express understanding. The patient and/or family, caregivers agrees with the plan. Shared decision making: I will have a discussion with the patient and or visitors regarding risk/benefits of further testing or admission. They will be made aware of of the risk/benefits inherent in this decision they will be given the opportunity to voice understanding. Total critical care time today provided was at least 0 minutes. This excludes separately billable procedures. Critical care time (if documented) is secondary to the patient having high probability of clinically significant/life threatening deterioration in the patient's condition which required my urgent intervention. Impression: 1. COVID-19 2. Hemoptysis Dispo: Discharge home This note was generated with [employer] dictation software. It may contain incorrect words, spelling, and punctuation that were not noted in review of the chart prior to signing. Radiography Diagnostic Testing: Clinical Impression(s) from Imaging Studies Chest X-Ray 08/06/23 14:32 IMPRESSION: No acute findings in the chest. Electronically Signed: Gamaliel Adam MD at 14:44 EST Reading Location ID and State: [facility] / [place] , Service support , Discharge Plan Triage Chief Complaint: Cough ED Provider: Bebeto Wilburn Dx/Rx/DC Orders Instructions: Coronavirus Disease 2019 (COVID-19): Overview Prescriptions: No Action multivitamin [Multiple Vitamins] 1 EACH tablet 1 ea PO DAILY simvastatin 20 MG tablet 80 mg PO QHS glimepiride 4 MG tablet 4 mg PO DAILY cyanocobalamin (vitamin B-12) 5,000 MCG tablet,disintegrating 5,000 mcg PO DAILY hydrocodone-acetaminophen [[place]] 1 EACH tablet 1 - 2 ea PO Q6H PRN PRN (Reason: Pain) Qty: 14 0RF atenolol 100 mg tablet 100 mg PO Q24H Patient Comments: TAKE 1 TABLET BY MOUTH EVERY DAY hydralazine 50 mg tablet 50 mg PO Q6H Patient Comments: TAKE 1 TABLET BY MOUTH 4 TIMES A DAY sildenafil 50 mg tablet 50 mg PO Q24H PRN (Reason: sexual activity) Patient Comments: TAKE 1 TABLET BY MOUTH EVERY DAY NEEDED Novolin R FlexPen 100 unit/mL (3 mL) insulin pen 46 unit SUBCUT TID Patient Comments: 1 pen injector subcutaneously as directed Novolin N FlexPen 100 unit/mL (3 mL) insulin pen 86 unit SUBCUT BID Patient Comments: 1 pen injector subcutaneously as directed valsartan-hydrochlorothiazide 320-25 mg tablet 1 tab PO DAILY Patient Comments: TAKE 1 TABLET BY MOUTH EVERY DAY amlodipine 10 mg tablet 10 mg PO DAILY Qty: 90 0RF Stand Alone Forms: ED Work / School Excuse Primary Care Provider: Shola Hussein Referrals: Shola Hussein MD [Primary Care Provider] - Activity Restrictions/Additional Instructions: Thank you for trusting us with your care today! Please take Tylenol (2 pills, 650 mg), ibuprofen (2 pills, 400 mg) every 6 hours as needed for pain and fever control. Please return to the emergency department if your symptoms change or worsen. Specifically develop chest pain, shortness of breath if you lose consciousness. Please follow with your primary care physician for further outpatient evaluation and management. Disposition Disposition: Home, Self Care Discharge Date/Time: 08/06/23 16:14
--- NOTE | 2023-08-06 14:32 | RAD_ITS ---
EXAM: XR CHEST, 2 VIEWS CLINICAL INDICATION: cough TECHNIQUE: Frontal and lateral views of the chest. COMPARISON: 12/15/2022 FINDINGS: LUNGS AND PLEURAL SPACES: Unremarkable. No consolidation or edema. No pneumothorax. No effusion. HEART: Unremarkable. Cardiac silhouette not enlarged. MEDIASTINUM: Central airways and mediastinal contour are unremarkable. BONES/JOINTS: Multiple median sternotomy wires are noted consistent for cardiac surgery. No acute fracture. SOFT TISSUES: Unremarkable. UPPER ABDOMEN: There is an elevated right hemidiaphragm. RAD/Chest PA and Lateral IMPRESSION: No acute findings in the chest. Electronically Signed: Gamaliel Adam MD at 14:44 EST ,
[2023-08-06 14:52] VITALS: O2SAT 98
[2023-08-06 16:11] VITALS: BP 115/61; PULSE 69; RESP 18; TEMP 36.6; O2SAT 98
== END 2023-08-06 16:14 | disposition home or self-care (01) ==
PROVIDERS: Emergency Provider Emergency Medicine; PCP Family Medicine; Visit Provider Emergency Medicine
DX: U07.1 COVID-19 (principal); E11.9 Type 2 diabetes mellitus without complications; R04.2 Hemoptysis; I25.10 Atherosclerotic heart disease of native coronary artery without angina pectoris; Z87.891 Personal history of nicotine dependence
CPT/HCPCS: 71046; 87631; 99282

== ENCOUNTER 2023-10-20 10:34 | Emergency (ER) | payer OTHER, SELFPAY ==
[2023-10-20 10:34] VITALS: BP 175/86; PULSE 74; RESP 17; TEMP 36.2; O2SAT 99; BMI 49.0
--- NOTE | 2023-10-20 11:19 | CT_ITS ---
STUDY: CT ABDOMEN AND PELVIS WITH CONTRAST REASON FOR EXAM: Male, 48 years old. 3 day history of abdominal pain and diarrhea. RADIATION DOSAGE (If Supplied By Facility): CTDIvol = ( 34.56 ) mGy, DLP = ( 1876.76 ) mGycm TECHNIQUE: Transaxial images were obtained from the dome of the diaphragm to the symphysis pubis without oral contrast. IV 100mL Isovue-300 was administered. Sagittal and coronal images were reconstructed. Individualized dose optimization techniques were used for this CT. COMPARISON: None. FINDINGS: The visualized lung bases are unremarkable. Coronary artery calcification. Prior CABG. Normal liver. Normal gallbladder and extrahepatic biliary system. Borderline splenomegaly. Normal pancreas. Normal bilateral adrenal glands. Normal right kidney. Normal left kidney. Normal visualized stomach. Normal small intestine. There are multiple colonic diverticula consistent with diverticulosis. The appendix is visualized and appears normal. There is scattered atherosclerotic calcification of the abdominal aorta, without a demonstrated aneurysm. Normal inferior vena cava. Normal retroperitoneum. Normal urinary bladder. There is calcification of the vas deferens. There is evidence of prior anterior abdominal wall hernia repair with a mesh. Small bilateral benign-appearing inguinal lymph nodes. There are mild degenerative changes of the visualized lumbar spine. CT/Abdomen/Pelvis W IV Cont ONLY IMPRESSION: Borderline splenomegaly. Scattered sigmoid diverticula. No acute abnormality is seen. Electronically Signed: Levi Morrell MD at 13:06 EDT ,
--- NOTE | 2023-10-20 11:20 | EX.ED.DYSGE1 ---
HPI <KB Alarcon - Last Filed: 10/20/23 14:14> History of Present Illness Chief Complaint: Diarrhea Narrative Narrative: Patient is a 48-year-old male with history of morbid obesity, hypertension hyperlipidemia CHF, ACS is on Eliquis who presents to the emergency department for 3 days of significant diarrhea. Patient states he usually goes to the bathroom 1-2 times per day. Patient states he is going 3-4 times per hour. He states is watery, denies any blood in the stool. He states he has chills, abdominal pain that is generalized, the only change in his medications is they upped his Manjaro injections from 2.5 mg to 5 mg. First dose was Monday. Patient denies any travel, denies any antibiotic use. PFSH <KB Alarcon - Last Filed: 10/20/23 14:14> [facility] Medical History (Updated 10/20/23 @ 14:13 by KB Alarcon) Complications Diabetes HTN (hypertension) Home Medications ?Medication ?Instructions ?Recorded ?Last Taken ?Type cyanocobalamin (vitamin B-12) 5,000 mcg PO DAILY 04/20/17 12/14/22 History 5,000 mcg disintegrating tablet glimepiride 4 mg tablet 4 mg PO DAILY DIABETES 04/20/17 Unknown History multivitamin (Multiple Vitamins 1 ea PO DAILY 04/20/17 12/14/22 History tablet) simvastatin 20 mg tablet 80 mg PO QHS 04/20/17 12/14/22 History hydrocodone-acetaminophen 5-325mg 1 - 2 ea PO Q6H PRN PRN Pain #14 04/21/17 Unknown Rx 5mg-325mg (Frankewing) tabs atenolol 100 mg tablet 100 mg PO Q24H 12/15/22 12/15/22 History hydralazine 50 mg tablet 50 mg PO Q6H 12/15/22 12/15/22 History insulin NPH isoph U-100 human 100 86 unit subcut BID 12/15/22 12/15/22 History unit/mL (3 mL) subcutaneous pen (Novolin N FlexPen) insulin regular human 100 unit/mL 46 unit subcut TID 12/15/22 12/15/22 History (3 mL) subcutaneous pen (Novolin R FlexPen) sildenafil 50 mg tablet 50 mg PO Q24H PRN sexual activity 12/15/22 11/27/22 History valsartan 320 1 tab PO DAILY 12/15/22 12/15/22 History mg-hydrochlorothiazide 25 mg tablet amlodipine 10 mg tablet 10 mg PO DAILY #90 tabs 12/16/22 Unknown Rx dicyclomine 20 mg tablet 20 mg PO TID #20 tabs 10/20/23 Unknown Rx ondansetron 4 mg disintegrating 4 mg PO Q8H PRN PRN Nausea #10 tabs 10/20/23 Unknown Rx tablet Allergy/AdvReac Type Severity Reaction Status Date / Time Penicillins (PCN) AdvReac ABDOMINAL Verified 08/06/23 13:36 PAIN, SEVERE DIARRHEA Surgical History (Updated 08/06/23 @ 14:51 by Vernell Layne) History of open heart surgery Social History (Updated 08/06/23 @ 14:51 by Vernell Layne) household members: spouse Smoking Status: Former smoker ROS <KB Alarcon - Last Filed: 10/20/23 14:14> ROS ED ROS Narrative Constitutional: Negative for fever, weight loss, weakness. Positive for chills Eyes: Negative for vision loss, vision change, double vision ENT: Negative for any sore throat, ear pain, congestion Cardiovascular: Negative for any chest pain, tightness, palpitations Respiratory: Negative for any cough, sputum production, hemoptysis, dyspnea, dyspnea on exertion, orthopnea Gastrointestinal: Negative for any vomiting, constipation, blood in stool, blood in vomit. Positive for abdominal pain, nausea, diarrhea : Negative for any urinary frequency, dysuria, retention, blood in urine Muscle skeletal: Negative for any neck pain, back pain Neurological: Negative for any headache, syncope, dizziness Skin: Negative for any rashes, itching, abrasions, lacerations Psychiatric: Negative for any depression, anxiety, stress, suicidal ideation, homicidal ideation Hematologic: Negative for any excessive bruising, easy bleeding EXAM <KB Alarcon - Last Filed: 10/20/23 14:14> Physical Exam Narrative Exam Narrative: Vital signs reviewed. HEET: Head normocephalic atraumatic, TMs clear bilaterally. Posterior pharynx is clear, moist mucous membranes. Nares clear bilaterally. Neck: Supple with no lymphadenopathy or tenderness. No signs of meningismus. Cardiac: Regular rate and rhythm no murmurs gallops or rubs, equal peripheral pulses bilaterally. Respiratory: Lungs clear to auscultation bilaterally. No chest tenderness. Abdomen: Soft,nondistended. No abdominal bruit or pulsatile masses. No hepatosplenomegaly. Positive for tenderness to the abdomen Extremities: No peripheral edema, no signs of gross trauma or deformity. Active full range of motion of all extremities. Neuro: Cranial nerves II through XII intact, no focal neurological deficits. Skin: Clean dry and intact with no rash, purpura, petechiae, vesicles or pustules. Backs/flank: No CVA tenderness, no midline spinal tenderness, no deformity. Psych: Normal mood and affect. No SI, HI or acute psychosis. Const Vital Signs: 10/20/23 10:34 10/20/23 11:36 10/20/23 14:32 Temperature 97.2 F L 98.2 F Temperature Source Temporal Pulse Rate 74 71 78 Respiratory Rate 17 14 16 Blood Pressure 175/86 H 125/68 H 132/78 H Blood Pressure Mean 115 87 96 Pulse Ox 99 99 99 Oxygen Delivery Method Room Air Room Air <Dr. Joe Mccoy DO - Last Filed: 10/20/23 15:33> Physical Exam Const Vital Signs: 10/20/23 10:34 10/20/23 11:36 10/20/23 14:32 Temperature 97.2 F L 98.2 F Temperature Source Temporal Pulse Rate 74 71 78 Respiratory Rate 17 14 16 Blood Pressure 175/86 H 125/68 H 132/78 H Blood Pressure Mean 115 87 96 Pulse Ox 99 99 99 Oxygen Delivery Method Room Air Room Air [facility] <KB Alarcon - Last Filed: 10/20/23 14:14> [facility] Lab Data Labs: Laboratory Results - last 24 hr 10/20/23 10/20/23 11:40 12:35 WBC 14.5 H RBC 4.82 Hgb 11.7 L Hct 38.0 L MCV 78.8 L MCH 24.3 L MCHC 30.8 L RDW Std Deviation 44.2 H RDW Coeff of Osorio 15.6 H Plt Count 256 MPV 10.0 Immature Gran % (Auto) 0.800 Neut % (Auto) 81.2 H Lymph % (Auto) 9.8 L [place] % (Auto) 7.1 Eos % (Auto) 1.0 Baso % (Auto) 0.1 Absolute Neuts (auto) 11.7 H Absolute Lymphs (auto) 1.42 Nucleated RBC % 0 Sodium 130 L Potassium 4.3 Chloride 101 Carbon Dioxide 24.0 Anion Gap 5 BUN 37 H Creatinine 1.34 H Estim Creat Clear Calc 99.84 Est GFR (MDRD) Af Amer 73 Est GFR (MDRD) Non-Af 60 BUN/Creatinine Ratio 27.6 H Glucose 219 H Calcium 9.4 Total Bilirubin 0.50 AST 13 L ALT 29 Alkaline Phosphatase 103 Total Protein 7.8 Albumin 3.5 Globulin 4.3 H Albumin/Globulin Ratio 0.8 L Lipase 45 Urine Color Yellow Urine Clarity Clear Urine pH 6.0 Ur Specific [place] 1.015 Urine Protein Negative Urine Glucose (UA) Normal Urine Ketones Negative Urine Occult Blood Negative Urine Nitrite Negative Urine Bilirubin Negative Urine Urobilinogen Normal Ur Leukocyte Esterase Negative Urine RBC 0 SEEN Urine WBC 0 SEEN Ur Squamous Epith Cells 0 SEEN Urine Bacteria 0 SEEN Urine Mucus 0 SEEN Radiography Diagnostic Testing: Clinical Impression(s) from Imaging Studies Abdomen/Pelvis CT 10/20/23 11:19 IMPRESSION: Borderline splenomegaly. Scattered sigmoid diverticula. No acute abnormality is seen. Electronically Signed: Levi Morrell MD at 13:06 EDT , Treatment and Re-Evaluation :: Differential diagnosis includes however is not limited to: Colitis, diverticulitis, infectious diarrhea, gastritis, gastroenteritis, electrolyte abnormalities Patient appears to be in no obvious respiratory distress vital signs are stable, patient appears nontoxic. Presenting to the emergency department with complaints of diarrhea, 3-4 times per hour over the last 3 days. Patient will receive basic laboratory values concerning for any electrolyte abnormalities, CBC, lipase, CMP. Patient received a CT scan of the abdomen pelvis concerning for any infectious colitis, diverticulitis. IV fluids, Zofran, morphine as well as Bentyl will be ordered. Patient will be reevaluated On reevaluation, the patient was feeling better. Patient's laboratory values show slight leukocytosis with a white blood count of 14.5, slight anemia with a hemoglobin of 11.7. Patient's chemistries show slight hyponatremia sodium 130, this to be secondary to the diarrhea. Slight elevation in creatinine at 1.3, patient baseline is 1.0. Glucose was 219, lipase was negative. Patient CT scan of the abdomen pelvis showed borderline splenomegaly scattered sigmoid diverticula no acute abnormality is seen. At this time, we the patient is stable for discharge. Patient feels better after treatment. He will be placed on Zofran, as well as Bentyl. He is instructed to increase his fluid intake. He agrees, he will speak with his doctor regarding his medication that he increase in dose. All questions were answered, patient struck to return for any worsening symptoms, stable for discharge. <Dr. Joe Mccoy, DO - Last Filed: 10/20/23 15:33> [facility] Narrative Medical decision making narrative: Differential diagnosis includes however is not limited to: Colitis, diverticulitis, infectious diarrhea, gastritis, gastroenteritis, electrolyte abnormalities Patient appears to be in no obvious respiratory distress vital signs are stable, patient appears nontoxic. Presenting to the emergency department with complaints of diarrhea, 3-4 times per hour over the last 3 days. Patient will receive basic laboratory values concerning for any electrolyte abnormalities, CBC, lipase, CMP. Patient received a CT scan of the abdomen pelvis concerning for any infectious colitis, diverticulitis. IV fluids, Zofran, morphine as well as Bentyl will be ordered. Patient will be reevaluated On reevaluation, the patient was feeling better. Patient's laboratory values show slight leukocytosis with a white blood count of 14.5, slight anemia with a hemoglobin of 11.7. Patient's chemistries show slight hyponatremia sodium 130, this to be secondary to the diarrhea. Slight elevation in creatinine at 1.3, patient baseline is 1.0. Glucose was 219, lipase was negative. Patient CT scan of the abdomen pelvis showed borderline splenomegaly scattered sigmoid diverticula no acute abnormality is seen. At this time, we the patient is stable for discharge. Patient feels better after treatment. He will be placed on Zofran, as well as Bentyl. He is instructed to increase his fluid intake. He agrees, he will speak with his doctor regarding his medication that he increase in dose. All questions were answered, patient struck to return for any worsening symptoms, stable for discharge. This patient was seen with a PA/PROPERTY MAINTENANCE SUPERVISOR Individually assessed they patient including history and physical. I have reviewed everything on the chart that is available and agree with the documentation provided by the PA/PROPERTY MAINTENANCE SUPERVISOR including discussion about the assessment, treatment plan, discussion, and return precautions. Patient presented with diarrhea. No recent antibiotic use. No exotic travel or food. Is having a lot of diarrhea which is more concerning. He is also having nausea and states he is not drinking fluids because he gets nauseous when he starts to drink. Patient medicated with Zofran, morphine, Bentyl and he is no CBC shows white blood cell count of 14.5. Hemoglobin 11.7. Platelets are normal at 256. Creatinine slightly elevated today and his BUN/creatinine ratio is elevated. Lipase is negative. Urinalysis negative. CT of the abdomen pelvis does not show anything acute. Discussed with patient that we will be sending him home with some antispasmodics and some Zofran. I recommended plenty of fluids. Return precautions were discussed. Lab Data Labs: Laboratory Results - last 24 hr 10/20/23 10/20/23 11:40 12:35 WBC 14.5 H RBC 4.82 Hgb 11.7 L Hct 38.0 L MCV 78.8 L MCH 24.3 L MCHC 30.8 L RDW Std Deviation 44.2 H RDW Coeff of Osorio 15.6 H Plt Count 256 MPV 10.0 Immature Gran % (Auto) 0.800 Neut % (Auto) 81.2 H Lymph % (Auto) 9.8 L [place] % (Auto) 7.1 Eos % (Auto) 1.0 Baso % (Auto) 0.1 Absolute Neuts (auto) 11.7 H Absolute Lymphs (auto) 1.42 Nucleated RBC % 0 Sodium 130 L Potassium 4.3 Chloride 101 Carbon Dioxide 24.0 Anion Gap 5 BUN 37 H Creatinine 1.34 H Estim Creat Clear Calc 99.84 Est GFR (MDRD) Af Amer 73 Est GFR (MDRD) Non-Af 60 BUN/Creatinine Ratio 27.6 H Glucose 219 H Calcium 9.4 Total Bilirubin 0.50 AST 13 L ALT 29 Alkaline Phosphatase 103 Total Protein 7.8 Albumin 3.5 Globulin 4.3 H Albumin/Globulin Ratio 0.8 L Lipase 45 Urine Color Yellow Urine Clarity Clear Urine pH 6.0 Ur Specific [place] 1.015 Urine Protein Negative Urine Glucose (UA) Normal Urine Ketones Negative Urine Occult Blood Negative Urine Nitrite Negative Urine Bilirubin Negative Urine Urobilinogen Normal Ur Leukocyte Esterase Negative Urine RBC 0 SEEN Urine WBC 0 SEEN Ur Squamous Epith Cells 0 SEEN Urine Bacteria 0 SEEN Urine Mucus 0 SEEN Radiography Diagnostic Testing: Clinical Impression(s) from Imaging Studies Abdomen/Pelvis CT 10/20/23 11:19 IMPRESSION: Borderline splenomegaly. Scattered sigmoid diverticula. No acute abnormality is seen. Electronically Signed: Levi Morrell MD at 13:06 EDT , Discharge Plan Triage Chief Complaint: Diarrhea ED Midlevel Provider: Urban Ha ED Provider: oJe Mccoy Dx/Rx/DC Orders Clinical Impression: Acute dehydration, Diarrhea, Abdominal cramping Instructions: ED Dehydration (Adult), ED Diarrhea, Unknown Cause Prescriptions: New ondansetron 4 mg tablet,disintegrating 4 mg PO Q8H PRN PRN (Reason: Nausea) Qty: 10 0RF dicyclomine 20 mg tablet 20 mg PO TID Qty: 20 0RF No Action multivitamin [Multiple Vitamins] 1 EACH tablet 1 ea PO DAILY simvastatin 20 MG tablet 80 mg PO QHS glimepiride 4 MG tablet 4 mg PO DAILY cyanocobalamin (vitamin B-12) 5,000 MCG tablet,disintegrating 5,000 mcg PO DAILY hydrocodone-acetaminophen [Frankewing] 1 EACH tablet 1 - 2 ea PO Q6H PRN PRN (Reason: Pain) Qty: 14 0RF atenolol 100 mg tablet 100 mg PO Q24H Patient Comments: TAKE 1 TABLET BY MOUTH EVERY DAY hydralazine 50 mg tablet 50 mg PO Q6H Patient Comments: TAKE 1 TABLET BY MOUTH 4 TIMES A DAY sildenafil 50 mg tablet 50 mg PO Q24H PRN (Reason: sexual activity) Patient Comments: TAKE 1 TABLET BY MOUTH EVERY DAY NEEDED Novolin R FlexPen 100 unit/mL (3 mL) insulin pen 46 unit SUBCUT TID Patient Comments: 1 pen injector subcutaneously as directed Novolin N FlexPen 100 unit/mL (3 mL) insulin pen 86 unit SUBCUT BID Patient Comments: 1 pen injector subcutaneously as directed valsartan-hydrochlorothiazide 320-25 mg tablet 1 tab PO DAILY Patient Comments: TAKE 1 TABLET BY MOUTH EVERY DAY amlodipine 10 mg tablet 10 mg PO DAILY Qty: 90 0RF Primary Care Provider: Shola Hussein Referrals: Shola Hussein MD [Primary Care Provider] - Activity Restrictions/Additional Instructions: Your labs appear that you are slightly dehydrated. You need to increase your fluids as well as eating a balanced diet. Talk with your physician regarding her diarrhea. Your CT scan was negative for any acute inflammatory bowel disease. No infectious process is seen. Use the nausea medicine as well as the Bentyl to help with the cramping. Print Language: Honduran Disposition Disposition: Home, Self Care Discharge Date/Time: 10/20/23 14:34
[2023-10-20 11:36] VITALS: BP 125/68; PULSE 71; RESP 14; O2SAT 99
[2023-10-20] MEDS: 0.9% Normal Saline (1000mL) 1,000 ML 999 ML IV (11:36)
[2023-10-20] MEDS: Ondansetron 4 MG/2 ML Vial IV (11:37)
[2023-10-20] MEDS: Morphine 4 MG/ML Syringe IV (11:37)
[2023-10-20] MEDS: Dicyclomine 10 MG Capsule 20 MG PO (11:38)
[2023-10-20 11:52] LABS: Absolute Lymphocyte Count 1.42 X10^3/uL (0.83-4.51); Absolute Neutrophil Count 11.7 X10^3/uL (2.0-7.7); Basophil# 0.02 X10^3/uL; Basophil% 0.1 % (0-1); Eosinophil# 0.15 X10^3/uL; Hemoglobin 11.7 g/dL (13.0-16.5); Lymphocyte # 1.42 X10^3/ul (0.83-4.51); Lymphocyte % 9.8 % (19-41); Mean Corp Hgb Conc 30.8 g/dL (32-36); Mean Corpuscular Hgb 24.3 pg (27.0-32.0); Mean Corpuscular Volume 78.8 fL (80-94); Monocyte# 1.02 X10^3/uL; Monocyte% 7.1 % (0-10); NRBC Flagged by Analyzer 0 % (0-5); Neutrophil # 11.73 X10^3/uL (2.7-7.7); Neutrophil % 81.2 % (47-70); Platelet Count 256 K/mm3 (150-450); RBC Distribution Width CV 15.6 % (11.6-14.6); RBC Distribution Width SD 44.2 fl (35.1-43.9); Red Blood Count 4.82 M/mm3 (4.6-6.2); White Blood Count 14.5 K/mm3 (4.4-11.0)
[2023-10-20 12:16] LABS: ALB/GLOB Ratio 0.8 RATIO (0.9-2.4); AST(SGOT) 13 U/L (15-37); Alanine Aminotransfer ALT/SGPT 29 U/L (16-61); Albumin, Serum 3.5 g/dL (3.2-5.0); Alkaline Phosphatase 103 U/L (45-117); Anion Gap 5 (5-15); BUN 37 mg/dL (7-18); BUN/Creat Ratio 27.6 RATIO (10-20); Calcium,Total 9.4 mg/dL (8.5-10.1); Chloride 101 mmol/L (98-107); Creatinine, Serum 1.34 mg/dL (0.70-1.30); EST Glomerular Filtration Rate 60 mL/min (>60); Est Glom Filt Rate - Afr Amer 73 mL/min (>60); Estimated Creatinine Clearance 99.84 ml/min; Globulin 4.3 g/dL (2.2-4.2); Glucose 219 mg/dL (74-106); Lipase 45 U/L (13-75); Potassium 4.3 mmol/L (3.5-5.1); Protein, Total 7.8 g/dL (6.4-8.2); Sodium Level 130 mmol/L (136-145)
[2023-10-20 12:42] LABS: Bacteria 0 SEEN /hpf (None Seen); Mucous, Urine 0 SEEN /hpf (<or=2+); Red Blood Cells-Urine 0 SEEN /hpf (0-5); Squamous Epithelial Cells - UA 0 SEEN /hpf (0-5); White Blood Cells 0 SEEN /hpf (0-5)
[2023-10-20 12:44] LABS: Color, Urine Yellow (Yellow); Glucose, Dipstick Normal (Normal); Ketone-Dipstick Negative (Negative); Leukocyte Esterase-Dipstick Negative /ul (Negative); Nitrite-Dipstick Negative (Negative); Occult Blood-Urine Negative /ul (Negative); Protein-Dipstick Negative (Negative); Specific Gravity, Urine 1.015 (1.002-1.030); Urine Bilirubin Dipstick Negative (Negative); Urine Clarity Clear (Clear); Urine Urobilinogen Normal (Normal)
[2023-10-20 14:32] VITALS: BP 132/78; PULSE 78; RESP 16; TEMP 36.8; O2SAT 99
== END 2023-10-20 14:34 | disposition home or self-care (01) ==
PROVIDERS: Nurse Practitioner; Emergency Provider Student in an Organized Health Care Education/Training Program; PCP Family Medicine; Visit Provider Student in an Organized Health Care Education/Training Program
DX: E86.0 Dehydration (principal); E11.9 Type 2 diabetes mellitus without complications; R19.7 Diarrhea, unspecified; I10 Essential (primary) hypertension; Z87.891 Personal history of nicotine dependence; Z79.01 Long term (current) use of anticoagulants
CPT/HCPCS: 74177; 80053; 81001; 83690; 85025; 96361; 96374; 96375; 99283; J7030; Q9967; A4216; J2405

== ENCOUNTER 2024-07-18 15:23 | Emergency (ER) | payer OTHER, SELFPAY ==
[2024-07-18 15:24] VITALS: BP 178/82; PULSE 85; RESP 20; TEMP 36.2; O2SAT 98; BMI 52.4
--- NOTE | 2024-07-18 15:50 | EX.ED.DYSGE1 ---
HPI History of Present Illness Chief Complaint: Abn Labs Informant: patient and spouse/S.O. Narrative Narrative: 49-year-old male presenting to the emergency room with abnormal labs. Patient states that he went to see his doctor yesterday. He has been having variable abdominal pain for a month. States that they anali blood work and called him today and told him to come to emergency because he was in DKA. Labs sheet that follows him shows a white count of 13.4 hemoglobin 13.1 platelet count of 270. Glucose yesterday was 407 (he tells me his blood sugar over the past several months has typically been 3-400). Creatinine 1.11. BUN 19 CRP of 2. Anion gap of 18. He states they checked his urine which did not accompany in him but was negative for infection. He states that he used to be on oral hypoglycemics but now only takes insulin. He takes and 55 units twice daily and 65 units of R 3 times daily with meals. He last had insulin at about 1430 hrs. today. He notes frequent urination. He notes a chronic cough and sees pulmonology but has not noted a recent change. He states at times he has been feeling flushed possible feverish. He notes that his legs have been more swollen than normal and a couple weeks ago he increased his diuretic but is unsure what dose he is currently taking. [facility] Medical History Complications Diabetes HTN (hypertension) Home Medications ?Medication ?Instructions ?Recorded ?Last Taken ?Type cyanocobalamin (vitamin B-12) 5,000 mcg PO DAILY 04/20/17 12/14/22 History 5,000 mcg disintegrating tablet glimepiride 4 mg tablet 4 mg PO DAILY DIABETES 04/20/17 Unknown History multivitamin (Multiple Vitamins 1 ea PO DAILY 04/20/17 12/14/22 History tablet) simvastatin 20 mg tablet 80 mg PO QHS 04/20/17 12/14/22 History hydrocodone-acetaminophen 5-325mg 1 - 2 ea PO Q6H PRN PRN Pain #14 04/21/17 Unknown Rx 5mg-325mg (Keeling) tabs atenolol 100 mg tablet 100 mg PO Q24H 12/15/22 12/15/22 History hydralazine 50 mg tablet 50 mg PO Q6H 12/15/22 12/15/22 History insulin NPH isoph U-100 human 100 86 unit subcut BID 12/15/22 12/15/22 History unit/mL (3 mL) subcutaneous pen (Novolin N FlexPen) insulin regular human 100 unit/mL 46 unit subcut TID 12/15/22 12/15/22 History (3 mL) subcutaneous pen (Novolin R FlexPen) sildenafil 50 mg tablet 50 mg PO Q24H PRN sexual activity 12/15/22 11/27/22 History valsartan 320 1 tab PO DAILY 12/15/22 12/15/22 History mg-hydrochlorothiazide 25 mg tablet amlodipine 10 mg tablet 10 mg PO DAILY #90 tabs 12/16/22 Unknown Rx dicyclomine 20 mg tablet 20 mg PO TID #20 tabs 10/20/23 Unknown Rx ondansetron 4 mg disintegrating 4 mg PO Q8H PRN PRN Nausea #10 tabs 10/20/23 Unknown Rx tablet Allergy/AdvReac Type Severity Reaction Status Date / Time Penicillins (PCN) AdvReac ABDOMINAL Verified 07/18/24 15:23 PAIN, SEVERE DIARRHEA Family History no significant family his Surgical History History of open heart surgery Social History household members: spouse Smoking Status: Former smoker ROS ROS ED Constitutional Constitutional ED: Reports subjective; Denies chills or weight loss Eyes Eyes: Denies change in vision or diplopia ENT ENT ED: Denies ear pain, rhinorrhea or sore throat Cardiovascular Cardiovascular: Denies chest pain, orthopnea, palpitations or racing heartbeat Respiratory/Chest Respiratory/Chest: Reports cough; Denies dyspnea or orthopnea Gastrointestinal Gastrointestinal: Reports abdominal pain and other Details: Abdominal pain over the past month. Occasional diarrhea. ; Denies nausea or vomiting Genitourinary Genitourinary ED: Reports urinary frequency; Denies dysuria or hematuria Musculoskeletal Musculoskeletal: Denies arthralgias or myalgias Integumentary Denies abscess or rash Neurologic Neurologic: Denies headache(s) or weakness Psychiatric Psychiatric: Denies anxiety, depression, suicidal ideation or suicidal thoughts Endocrine Endocrinology: Denies polydipsia, polyphagia or polyuria Allergic/Immunologic Allergic/Immunologic ED: Denies mouth swelling, tongue swelling or urticaria EXAM Physical Exam Const Vital Signs: 07/18/24 15:24 07/18/24 17:11 07/18/24 18:26 Temperature 97.2 F L 97.8 F Temperature Source Temporal Oral Pulse Rate 85 76 80 Respiratory Rate 20 H Blood Pressure 178/82 H 162/73 H 167/85 H Blood Pressure Mean 114 102 112 Pulse Ox 98 94 100 Oxygen Delivery Method Room Air Room Air Room Air Positive well nourished, well developed and obese General Appearance ED: well developed and NAD Nutritional Appearance: obese HEENT Reports normocephalic, head/scalp atraumatic and moist mucous membranes Eyes PERRL and EOMs intact bilaterally Neck no lymphadenopathy, supple and no JVD Resp normal respiratory effort and clear to auscultation bilaterally Cardio regular rate, regular rhythm and no murmurs GI normal to inspection, nondistended, normoactive bowel sounds and non-tender Palpation: soft Back/Spine no CVA tenderness and normal ROM Extremity General Extremety ED: Yes edema General Extremity: edema bilateral lower extremity Details: moderate Neuro oriented x3 and CN's II-XII intact bilaterally Sensorium / Orientation: alert Motor Exam: strength 5/5 throughout Psych mental status grossly normal Mood & Affect: Negative for depressed or tearful Skin no rashes or lesions noted and no wounds MDM MDM MDM Narrative Medical decision making narrative: Differential diagnosis includes diabetic hyperglycemia/poorly controlled diabetes, diabetic ketoacidosis. UTI, acute kidney injury dehydration electrolyte abnormalities Patient's white count 10.6 hemoglobin 12.3 platelet count 216. Hemoglobin A1c is 10.5. Glucose is 419. His anion gap is 6 with a BUN of 21 and creatinine 1.38. Patient began to experience his abdominal pain. A CT of the pelvis was obtained which does not demonstrate any acute findings. Patient received a dose of insulin IV. I reviewed the above findings with the patient and using shared decision making we agreed that the patient can be discharged home. He has a sliding scale insulin that he can follow would recommend follow-up with his cannery tender engineer. History & Record Review Discussion w/independent historian: Patient and Significant other Lab Data Attestation: I reviewed the patient's lab results. Labs: Laboratory Results - last 24 hr 07/18/24 07/18/24 16:00 16:05 WBC 10.6 RBC 5.12 Hgb 12.3 L Hct 39.1 L MCV 76.4 L MCH 24.0 L MCHC 31.5 L RDW Std Deviation 45.1 H RDW Coeff of Osorio 16.8 H Plt Count 216 MPV 10.4 Immature Gran % (Auto) 0.900 Neut % (Auto) 80.0 H Lymph % (Auto) 11.9 L [place] % (Auto) 6.1 Eos % (Auto) 0.8 Baso % (Auto) 0.3 Absolute Neuts (auto) 8.5 H Absolute Lymphs (auto) 1.27 Nucleated RBC % 0 Sodium 134 L Potassium 4.1 Chloride 96 L Carbon Dioxide 32.0 Anion Gap 6 BUN 21 H Creatinine 1.38 H Estim Creat Clear Calc 99.82 Est GFR (MDRD) Af Amer 70 Est GFR (MDRD) Non-Af 58 L BUN/Creatinine Ratio 15.2 Glucose 419 H Hemoglobin A1c 10.5 H Calcium 10.7 H Total Bilirubin 0.60 Direct Bilirubin 0.18 AST 17 ALT 35 Alkaline Phosphatase 114 Total Protein 7.7 Albumin 3.3 Globulin 4.4 H Urine Color Yellow Urine Clarity Clear Urine pH 7.0 Ur Specific [place] 1.010 Urine Protein 15 H Urine Glucose (UA) 1000 H Urine Ketones Negative Urine Occult Blood 10 H Urine Nitrite Negative Urine Bilirubin Negative Urine Urobilinogen Normal Ur Leukocyte Esterase Negative Urine RBC 0 SEEN Urine WBC 0 SEEN Ur Squamous Epith Cells 0 SEEN Urine Bacteria 0 SEEN Urine Mucus 0 SEEN Acetone Level NEGATIVE Radiography Diagnostic Testing: Clinical Impression(s) from Imaging Studies Chest X-Ray 07/18/24 16:05 IMPRESSION: Cardiomegaly with mild congestion. Reading Location: [facility] Abdomen/Pelvis CT 07/18/24 18:15 IMPRESSION: No acute abdominopelvic finding. One or more dose reduction techniques were used (e.g., Automated exposure control, adjustment of the mA and/or kV according to patient size, use of iterative reconstruction technique). Reading Location: [facility] Discharge Plan Triage Chief Complaint: Abn Labs ED Provider: Srinath Rahman Dx/Rx/DC Orders Clinical Impression: Diabetes mellitus with hyperglycemia, Abdominal pain Instructions: Abdominal Pain, ED Diabetic Hyperglycemia Prescriptions: No Action multivitamin [Multiple Vitamins] 1 EACH tablet 1 ea PO DAILY simvastatin 20 MG tablet 80 mg PO QHS glimepiride 4 MG tablet 4 mg PO DAILY cyanocobalamin (vitamin B-12) 5,000 MCG tablet,disintegrating 5,000 mcg PO DAILY hydrocodone-acetaminophen [Keeling] 1 EACH tablet 1 - 2 ea PO Q6H PRN PRN (Reason: Pain) Qty: 14 0RF atenolol 100 mg tablet 100 mg PO Q24H Patient Comments: TAKE 1 TABLET BY MOUTH EVERY DAY hydralazine 50 mg tablet 50 mg PO Q6H Patient Comments: TAKE 1 TABLET BY MOUTH 4 TIMES A DAY sildenafil 50 mg tablet 50 mg PO Q24H PRN (Reason: sexual activity) Patient Comments: TAKE 1 TABLET BY MOUTH EVERY DAY NEEDED Novolin R FlexPen 100 unit/mL (3 mL) insulin pen 46 unit SUBCUT TID Patient Comments: 1 pen injector subcutaneously as directed Novolin N FlexPen 100 unit/mL (3 mL) insulin pen 86 unit SUBCUT BID Patient Comments: 1 pen injector subcutaneously as directed valsartan-hydrochlorothiazide 320-25 mg tablet 1 tab PO DAILY Patient Comments: TAKE 1 TABLET BY MOUTH EVERY DAY amlodipine 10 mg tablet 10 mg PO DAILY Qty: 90 0RF ondansetron 4 mg tablet,disintegrating 4 mg PO Q8H PRN PRN (Reason: Nausea) Qty: 10 0RF dicyclomine 20 mg tablet 20 mg PO TID Qty: 20 0RF Primary Care Provider: Shola Hussein Referrals: Shola Hussein MD [Primary Care Provider] - Activity Restrictions/Additional Instructions: Please call your cannery tender engineer to schedule follow-up. Please follow their sliding scale insulin dosing for hyperglycemia. Please discuss tonight's visit with your primary care doctor. Print Language: Turkish Disposition Disposition: Home, Self Care
--- NOTE | 2024-07-18 16:05 | RAD_ITS ---
EXAM: XR Chest, 1 View CLINICAL INDICATION: TECHNIQUE: Frontal view of the chest. COMPARISON: No relevant prior studies available. FINDINGS: LUNGS AND PLEURAL SPACES: See below. HEART: Cardiomegaly with mild congestion. MEDIASTINUM: Unremarkable. Normal mediastinal contour. BONES/JOINTS: Unremarkable. No acute fracture. RAD/Chest 1 View (Portable) IMPRESSION: Cardiomegaly with mild congestion. [facility]
[2024-07-18 16:16] LABS: Bacteria 0 SEEN /hpf (None Seen); Mucous, Urine 0 SEEN /hpf (<or=2+); Squamous Epithelial Cells - UA 0 SEEN /hpf (0-5); White Blood Cells 0 SEEN /hpf (0-5)
[2024-07-18 16:18] LABS: Absolute Lymphocyte Count 1.27 X10^3/uL (0.83-4.51); Absolute Neutrophil Count 8.5 X10^3/uL (2.0-7.7); Basophil# 0.03 X10^3/uL; Basophil% 0.3 % (0-1); Eosinophil# 0.08 X10^3/uL; Eosinophils% 0.8 % (0-5); Hematocrit 39.1 % (40-54); Hemoglobin 12.3 g/dL (13.0-16.5); Lymphocyte # 1.27 X10^3/ul (0.83-4.51); Lymphocyte % 11.9 % (19-41); Mean Corp Hgb Conc 31.5 g/dL (32-36); Mean Corpuscular Volume 76.4 fL (80-94); Mean Platelet Vol. 10.4 fl (6.2-12.0); Monocyte# 0.65 X10^3/uL; Monocyte% 6.1 % (0-10); NRBC Flagged by Analyzer 0 % (0-5); Neutrophil # 8.51 X10^3/uL (2.7-7.7); Platelet Count 216 K/mm3 (150-450); RBC Distribution Width CV 16.8 % (11.6-14.6); RBC Distribution Width SD 45.1 fl (35.1-43.9); Red Blood Count 5.12 M/mm3 (4.6-6.2); White Blood Count 10.6 K/mm3 (4.4-11.0)
[2024-07-18 16:20] LABS: Color, Urine Yellow (Yellow); Glucose, Dipstick 1000 mg/dl (Normal); Ketone-Dipstick Negative (Negative); Leukocyte Esterase-Dipstick Negative /ul (Negative); Nitrite-Dipstick Negative (Negative); Occult Blood-Urine 10 /ul (Negative); Protein-Dipstick 15 mg/dl (Negative); Urine Bilirubin Dipstick Negative (Negative); Urine Clarity Clear (Clear); Urine Urobilinogen Normal (Normal)
[2024-07-18 16:27] LABS: Red Blood Cells-Urine 0 SEEN /hpf (0-5)
[2024-07-18 16:37] LABS: AST(SGOT) 17 U/L (15-37); Alanine Aminotransfer ALT/SGPT 35 U/L (16-61); Albumin, Serum 3.3 g/dL (3.2-5.0); Alkaline Phosphatase 114 U/L (45-117); Anion Gap 6 (5-15); BUN 21 mg/dL (7-18); BUN/Creat Ratio 15.2 RATIO (10-20); Bilirubin, Direct 0.18 mg/dL (0.00-0.30); Calcium,Total 10.7 mg/dL (8.5-10.1); Chloride 96 mmol/L (98-107); Creatinine, Serum 1.38 mg/dL (0.70-1.30); EST Glomerular Filtration Rate 58 mL/min (>60); Est Glom Filt Rate - Afr Amer 70 mL/min (>60); Estimated Creatinine Clearance 99.82 ml/min; Globulin 4.4 g/dL (2.2-4.2); Glucose 419 mg/dL (74-106); Potassium 4.1 mmol/L (3.5-5.1); Protein, Total 7.7 g/dL (6.4-8.2); Sodium Level 134 mmol/L (136-145)
[2024-07-18] MEDS: Insulin Lispro 100 UNIT/ML VIAL (ADMELOG) 10 UNIT IV (17:07)
[2024-07-18 17:11] VITALS: BP 162/73; PULSE 76; O2SAT 94
--- NOTE | 2024-07-18 18:15 | CT_ITS ---
PROCEDURE: ABDOMEN/PELVIS W IV CONT ONLY REASON FOR EXAM: 49-year-old male, abdominal pain. Elevated white blood cell count yesterday. TECHNIQUE: Abdomen and pelvis CT with intravenous contrast. No oral contrast. IV CONTRAST: Administered. COMPARISON: CT abdomen pelvis 10/20/2023. FINDINGS: Lung bases: Prior median sternotomy and CABG with partially visualized sternal wire fracturing and non-apposition of the lower sternum. The heart is normal in size. Liver: The liver is normal in size without focal hepatic mass. The major portal veins are patent. No biliary ductal dilation. Gallbladder: Probable dependent sludge within the gallbladder. No gallbladder wall thickening or pericholecystic fluid. Spleen: Unremarkable. Pancreas: Unremarkable. Adrenals: Unremarkable. Kidneys: No hydronephrosis or nephrolithiasis. Small left renal cysts. Bladder: Moderately distended and unremarkable. Reproductive Organs: Unremarkable. Bowel: The bowel loops are normal in caliber. No ascites or pneumoperitoneum. Normal appendix. Lymph nodes: No suspicious lymph node enlargement. Vasculature: Mild diffuse atherosclerotic calcifications are noted. Bones: Unremarkable. Soft tissues: Prior anterior abdominal hernia repair with numerous suture material within the anterior abdominal wall. Mild subcutaneous stranding along the right lateral abdominal wall, however the bilateral abdominal wall is not completely included in the field of view secondary to body habitus. CT/Abdomen/Pelvis W IV Cont ONLY IMPRESSION: No acute abdominopelvic finding. One or more dose reduction techniques were used (e.g., Automated exposure contr ol, adjustment of the mA and/or kV according to patient size, use of iterative reconstruction technique). Reading Location: [id number]
[2024-07-18 18:19] LABS: Hemoglobin A1c 10.5 % (3.8-5.6)
[2024-07-18] MEDS: Ketorolac 30 MG/ML Syringe IV (18:21)
[2024-07-18 18:26] VITALS: BP 167/85; PULSE 80; TEMP 36.6; O2SAT 100
[2024-07-18 20:10] VITALS: BP 139/83; PULSE 81; RESP 18; TEMP 36.6; O2SAT 97
== END 2024-07-18 20:11 | disposition home or self-care (01) ==
PROVIDERS: Emergency Provider Emergency Medicine; PCP Family Medicine; Visit Provider Emergency Medicine
DX: E11.65 Type 2 diabetes mellitus with hyperglycemia (principal); Z79.4 Long term (current) use of insulin; R10.9 Unspecified abdominal pain; R05.3 Chronic cough; I10 Essential (primary) hypertension; E66.9 Obesity, unspecified; Z88.0 Allergy status to penicillin; Z79.899 Other long term (current) drug therapy; Z87.891 Personal history of nicotine dependence
CPT/HCPCS: 71045; 74177; 80048; 80076; 81001; 82009; 83036; 85025; 87631; 96374; 96375; 99284; Q9967; A4216

== ENCOUNTER 2024-07-23 11:40 | Inpatient (IN) | payer OTHER, SELFPAY ==
[2024-07-23] VITALS (17 sets, daily range): BP systolic 94–122; BP diastolic 48–59; PULSE 66–92; RESP 14–20; TEMP 36.6–37.3; O2SAT 91–99; BMI 52.8; BMI 51.4
--- NOTE | 2024-07-23 12:20 | EX.ED.DYSGE1 ---
HPI History of Present Illness Chief Complaint: General Illness Informant: patient and spouse/S.O. Onset/Context/Timing Onset: Days Context: Gradual Onset Timing: Continuous Current Severity: Moderate Maximum Severity: Moderate Narrative Narrative: 49-year-old male past medical history consistent for diabetes, hypertension, double bypass on blood thinner Eliquis. States both he and his have been ill the last several days she has gotten better he has been sick for 4 days. He has had nausea, vomiting and diarrhea. He has been short of breath with a cough and wheezing. When squad brought him in today at home his pulse ox was 88%. He says having productive cough of white sputum. He feels lightheaded he has had decreased oral intake and decreased urination. Denies any dysuria. No hematuria. He has had fever and chills. Prior similar symptoms: Yes Recent Illness/Hospitalization: No PFSH PFS Medical History Umbilical hernia Asthma Complications Diabetes HTN (hypertension) Home Medications ?Medication ?Instructions ?Recorded ?Last Taken ?Type multivitamin (Multiple Vitamins 1 ea PO DAILY 04/20/17 12/14/22 History tablet) hydralazine 50 mg tablet 50 mg PO Q6H 12/15/22 12/15/22 History acetaminophen 500 mg tablet 1,000 mg PO Q4H 07/23/24 07/23/24 History albuterol sulfate 90 mcg/actuation 2 puff inhalation Q4H PRN 07/23/24 Unknown History aerosol inhaler shortness of breath or wheezing apixaban 5 mg tablet (Eliquis) 5 mg PO BID 07/23/24 07/23/24 History aspirin 81 mg tablet,delayed 81 mg PO DAILY 07/23/24 07/23/24 History release (Adult Aspirin Regimen) atorvastatin 80 mg tablet 80 mg PO QHS 07/23/24 07/22/24 History brimonidine 0.2 % eye drops 1 drp ophthalmic (eye) BID 07/23/24 07/23/24 History brinzolamide 1 %-brimonidine 0.2 % 1 drp RIGHT EYE BID 07/23/24 Unknown History eye drops,suspension cyanocobalamin (vitamin B-12) 1,000 mcg PO DAILY 07/23/24 07/23/24 History 1,000 mcg capsule dorzolamide 2 % eye drops 1 drp ophthalmic (eye) BID 07/23/24 07/23/24 History fluticasone furoate 100 1 ea inhalation DAILY 07/23/24 07/23/24 History mcg-vilanterol 25 mcg/dose inhalation powder (Breo Ellipta) insulin NPH isoph U-100 human 100 55 unit subcut BID 07/23/24 07/23/24 History unit/mL subcutaneous suspension (Novolin N NPH U-100 Insulin isophane) insulin regular human 100 unit/mL 60 unit IM TID 07/23/24 07/23/24 History injection solution (Novolin R Regular U-100 Insulin) latanoprost 0.005 % eye drops 1 drp RIGHT EYE DAILY 07/23/24 Unknown History magnesium oxide 400 mg (241.3 mg 400 mg PO DAILY 07/23/24 07/23/24 History magnesium) tablet metoprolol succinate 50 mg 150 mg PO DAILY 07/23/24 07/23/24 History tablet,extended release 24 hr omeprazole 40 mg capsule,delayed 40 mg PO DAILY 07/23/24 07/23/24 History release ondansetron 4 mg disintegrating 4 mg PO Q8 PRN Nausea 07/23/24 Unknown History tablet spironolactone 25 mg tablet 25 mg PO DAILY 07/23/24 07/23/24 History timolol maleate 0.5 % eye drops 1 drp RIGHT EYE BID 07/23/24 07/23/24 History tirzepatide 5 mg/0.5 mL 5 mg subcut MO 07/23/24 07/15/24 History subcutaneous pen injector (Mounjaro) torsemide 20 mg tablet 40 mg PO BID 07/23/24 07/23/24 History vitamin D3 500 unit-folic acid 1 1 tab PO DAILY 07/23/24 07/23/24 History mg tablet (Roxifol-D) Allergy/AdvReac Type Severity Reaction Status Date / Time Penicillins (PCN) AdvReac ABDOMINAL Verified 07/23/24 11:54 PAIN, SEVERE DIARRHEA Surgical History History of hernia surgery History of ankle surgery History of open heart surgery Social History household members: spouse Smoking Status: Former smoker ROS ROS ED ROS Narrative Nausea, vomiting and diarrhea. Fever and cough. Chills. Constitutional Constitutional ED: Reports chills and fever(s) Eyes Eyes: Denies blurry vision ENT ENT ED: Denies ear pain Cardiovascular Cardiovascular: Denies chest pain Respiratory/Chest Respiratory/Chest: Reports cough, dyspnea and sputum Gastrointestinal Gastrointestinal: Reports diarrhea, nausea and vomiting; Denies abdominal pain, constipation or melena Genitourinary Genitourinary ED: Denies dysuria Musculoskeletal Musculoskeletal: Denies arthralgias Integumentary Denies abscess Neurologic Neurologic: Denies headache(s) Psychiatric Psychiatric: Denies anxiety or depression Endocrine Endocrinology: Denies cold intolerance Hematologic/Lymphatic Hematologic/Lymphatic: Reports none Allergic/Immunologic Allergic/Immunologic ED: Denies mouth swelling, tongue swelling or urticaria EXAM Physical Exam Narrative Exam Narrative: 49-year-old male lying in bed. Initial blood pressure 113/51. Pulse ox at home was 88% on room air here is 97% on 2 L. He does look mildly dehydrated. He does not look septic. H EENT exam dry mucous membranes. Posterior pharynx unremarkable. Pupils are round reactive light. Normal speech. No facial droop. No head or face trauma. Neck nontender no meningismus. No lymphadenopathy. Lungs clear to auscultation bilaterally. Heart regular rhythm rate about 70 no murmur. Chest wall ribs nontender. Well healed prior sternotomy scar. Abdomen is soft, nontender, nondistended normal bowel sounds without peritoneal signs. Obese. Moving all 4 extremities. Nontender no edema. Normal dorsi plantarflexion. Normal shed boss strength. Skin no rash. Back nontender. Neurologically is awake alert. Answer questions following commands. Const Vital Signs: 07/23/24 11:50 07/23/24 11:54 07/23/24 12:13 Temperature 98.1 F 98.1 F Temperature Source Oral Oral Pulse Rate 67 69 Respiratory Rate 18 17 Blood Pressure 113/51 L 113/51 L Blood Pressure Mean 71 71 Pulse Ox 97 98 91 Oxygen Delivery Method Nasal Cannula Nasal Cannula Room Air Oxygen Flow Rate (L/min) 2 2 07/23/24 12:32 07/23/24 12:32 07/23/24 12:54 Temperature 98.9 F Temperature Source Oral Pulse Rate 67 66 Respiratory Rate 14 Blood Pressure 94/48 L 99/49 L Blood Pressure Mean 63 65 Pulse Ox 94 96 Oxygen Delivery Method Nasal Cannula Room Air Oxygen Flow Rate (L/min) 2 07/23/24 13:00 Temperature 98.9 F Temperature Source Oral Pulse Rate 66 Respiratory Rate 17 Blood Pressure 99/49 L Blood Pressure Mean 65 Pulse Ox 96 Oxygen Delivery Method Nasal Cannula Oxygen Flow Rate (L/min) 2 Positive well nourished, well developed and obese; Negative for cachectic, contractures or unkempt General Appearance ED: well developed; Negative for unkempt, cachectic, contractures, cyanotic, diaphoretic or pallor Nutritional Appearance: obese; Negative for cachectic HEENT Reports dry mucous membranes Negative for trauma or tenderness Mouth ED: Yes dry mucous membranes Mouth: dry mucous membranes Eyes PERRL and EOMs intact bilaterally General Eye ED: Negative for pale conjunctiva Neck no lymphadenopathy, supple and no JVD General: Negative for tenderness Chest Wall inspection of chest normal and palpation of chest normal Resp normal respiratory effort and clear to auscultation bilaterally Auscultation: Negative for rales, rhonchi or wheezes Cardio regular rate, regular rhythm, S1 normal heart sound, S2 normal heart sound and no murmurs GI normal to inspection, nondistended, normoactive bowel sounds, non-tender, non-distended and no masses Palpation: soft; Negative for tender, guarding or rebound tenderness present Back/Spine no CVA tenderness General Back: Negative for CVA tenderness Cervical Spine: Negative for cervical spine tenderness Thoracic Spine / Upper Back: Negative for thoracic spinal tenderness or paraspinal muscle tenderness Lumbar Spine / Lower Back: Negative for lumbar spinal tenderness Extremity normal to inspection General Extremety ED: Negative for edema or tenderness General Extremity: Negative for edema Neuro oriented x3 and CN's II-XII intact bilaterally Sensorium / Orientation: alert; Negative for orientation impaired, lethargic or stuporous Motor Exam: general weakness Psych mental status grossly normal Appearance: Negative for unkempt Attitude: No agitated Mood & Affect: Negative for depressed, anxious or tearful Skin no rashes or lesions noted and no wounds General Skin Exam: Negative for jaundice or pallor Lesions: No lesion noted Rashes: No rashes noted Trauma: Negative for abrasion Wounds: Negative for wounds noted MDM MDM MDM Narrative Medical decision making narrative: 49-year-old male suspect viral syndrome possibly influenza versus viral gastroenteritis versus other etiologies. Clinically looks dehydrated. But given IV fluids and Zofran. I will do a septic workup due to his transient hypotension and hypoxia. Receive IV fluids. Zofran for nausea. Repeat exam at 2 PM patient doing well. He is requesting more nausea medication and something for his acute on chronic abdominal pain and be given IV fentanyl. Due to his hypoxia. I will speak to the hospitalist about admission. He will be treated for influenza. History & Record Review Discussion w/independent historian: Patient and Family Additional record(s) reviewed:: Prior inpatient record, Prior outpatient record, Prior ED visit and Prior labs Lab Data Attestation: I reviewed the patient's lab results. Lab results narrative: CBC shows a white count of 5.5. H&H 12.8 and 40. Platelets 216. PT/INR is 16 and 1.3. PTT of 57. Electrolytes show sodium 134. Potassium 3.1. Gap 10. BUN of 35 creatinine 1.49. Consistent with dehydration. Glucose 113. Liver enzymes unremarkable. Influenza A positive. Labs: Laboratory Results - last 24 hr 07/23/24 11:26 WBC 5.5 RBC 5.38 Hgb 12.8 L Hct 40.4 MCV 75.1 L MCH 23.8 L MCHC 31.7 L RDW Std Deviation 45.4 H RDW Coeff of Osorio 16.9 H Plt Count 216 MPV 10.5 Immature Gran % (Auto) 0.400 Neut % (Auto) 63.1 Lymph % (Auto) 20.7 [place] % (Auto) 15.6 H Eos % (Auto) 0.0 Baso % (Auto) 0.2 Absolute Neuts (auto) 3.4 Absolute Lymphs (auto) 1.13 Nucleated RBC % 0 PT 16.6 H INR 1.3 APTT 57.2 H Sodium 134 L Potassium 3.1 L Chloride 96 L Carbon Dioxide 27.0 Anion Gap 10 BUN 35 H Creatinine 1.49 H Estim Creat Clear Calc 92.82 Est GFR (MDRD) Af Amer 64 Est GFR (MDRD) Non-Af 53 L BUN/Creatinine Ratio 23.5 H Glucose 113 H Calcium 8.9 Total Bilirubin 0.60 AST 77 H ALT 53 Alkaline Phosphatase 90 Total Protein 7.3 Albumin 3.0 L Globulin 4.3 H Albumin/Globulin Ratio 0.7 L Radiography Chest X-Ray - ED: 1 View, Read by ED Physician, Read by Radiologist and Cardiomegaly Diagnostic Testing: Clinical Impression(s) from Imaging Studies Chest X-Ray 07/23/24 12:40 IMPRESSION: Mild cardiomegaly pulmonary vascular congestion. No acute infiltrate. [facility] Chest x-ray, 2 views, AP and lateral, interpreted by myself and the radiologist shows cardiomegaly. Mild vascular congestion Rhythm Strip Rhythm Strip: Sinus Rhythm Rate: 64 Ectopy: None EKG Initial EKG: Attestation: I personally reviewed and interpreted this EKG as follows: Interpretation: Sinus Rhythm, No Acute Injury Pattern and RBBB Comments: Normal sinus rhythm rate of 64 no acute signs of NE or ischemia. Right bundle branch. Discharge Plan Dx/Rx/DC Orders Clinical Impression: Influenza A, Hypoxia, Generalized weakness, History of diabetes mellitus, Hx of coronary artery bypass graft Disposition Disposition: Acute Care Hospital [facility]
[2024-07-23 12:23] LABS: Absolute Lymphocyte Count 1.13 X10^3/uL (0.83-4.51); Absolute Neutrophil Count 3.4 X10^3/uL (2.0-7.7); Basophil# 0.01 X10^3/uL; Basophil% 0.2 % (0-1); Hematocrit 40.4 % (40-54); Hemoglobin 12.8 g/dL (13.0-16.5); Lymphocyte # 1.13 X10^3/ul (0.83-4.51); Lymphocyte % 20.7 % (19-41); Mean Corp Hgb Conc 31.7 g/dL (32-36); Mean Corpuscular Hgb 23.8 pg (27.0-32.0); Mean Corpuscular Volume 75.1 fL (80-94); Mean Platelet Vol. 10.5 fl (6.2-12.0); Monocyte# 0.85 X10^3/uL; Monocyte% 15.6 % (0-10); NRBC Flagged by Analyzer 0 % (0-5); Neutrophil # 3.44 X10^3/uL (2.7-7.7); Neutrophil % 63.1 % (47-70); Platelet Count 216 K/mm3 (150-450); RBC Distribution Width CV 16.9 % (11.6-14.6); RBC Distribution Width SD 45.4 fl (35.1-43.9); Red Blood Count 5.38 M/mm3 (4.6-6.2); White Blood Count 5.5 K/mm3 (4.4-11.0)
[2024-07-23] MEDS: 0.9% Normal Saline (1000mL) 1,000 ML 999 ML IV (12:33)
[2024-07-23] MEDS: Ondansetron 4 MG/2 ML Vial IV ×2 (12:33→14:20)
[2024-07-23 12:36] LABS: Partial Thromboplast Time 57.2 Seconds (24.1-36.2)
[2024-07-23 12:39] LABS: International Normalized Ratio 1.3; Prothrombin Time (Protime)PT. 16.6 SECONDS (11.7-14.9)
--- NOTE | 2024-07-23 12:40 | RAD_ITS ---
PROCEDURE: CHEST PA AND LATERAL REASON FOR EXAM: Fever TECHNIQUE: Frontal and lateral views of the chest. COMPARISON: 07/18/2024 FINDINGS: Heart size is mildly enlarged. The mediastinal contour is unremarkable. Pulmonary vasculature is congested. No acute infiltrate. The bones are unremarkable. RAD/Chest PA and Lateral IMPRESSION: Mild cardiomegaly pulmonary vascular congestion. No acute infiltrate. Reading Location: [facility]
[2024-07-23 13:12] LABS: ALB/GLOB Ratio 0.7 RATIO (0.9-2.4); AST(SGOT) 77 U/L (15-37); Alanine Aminotransfer ALT/SGPT 53 U/L (16-61); Alkaline Phosphatase 90 U/L (45-117); Anion Gap 10 (5-15); BUN 35 mg/dL (7-18); BUN/Creat Ratio 23.5 RATIO (10-20); Calcium,Total 8.9 mg/dL (8.5-10.1); Chloride 96 mmol/L (98-107); Creatinine, Serum 1.49 mg/dL (0.70-1.30); EST Glomerular Filtration Rate 53 mL/min (>60); Est Glom Filt Rate - Afr Amer 64 mL/min (>60); Estimated Creatinine Clearance 92.82 ml/min; Globulin 4.3 g/dL (2.2-4.2); Glucose 113 mg/dL (74-106); Potassium 3.1 mmol/L (3.5-5.1); Protein, Total 7.3 g/dL (6.4-8.2); Sodium Level 134 mmol/L (136-145)
[2024-07-23 14:04] LABS: Color, Urine Yellow (Yellow); Glucose, Dipstick Normal (Normal); Ketone-Dipstick Negative (Negative); Leukocyte Esterase-Dipstick Negative /ul (Negative); Nitrite-Dipstick Negative (Negative); Occult Blood-Urine Negative /ul (Negative); Protein-Dipstick 30 mg/dl (Negative); Urine Bilirubin Dipstick Negative (Negative); Urine Clarity Sl. Cloudy (Clear); Urine Urobilinogen Normal (Normal)
[2024-07-23 14:12] LABS: Bacteria 1+ /hpf (None Seen); Hyaline Cast 0-5 SEEN /lpf (0-5); Mucous, Urine 1+ /hpf (<or=2+); Red Blood Cells-Urine 0 SEEN /hpf (0-5); Squamous Epithelial Cells - UA 0-5 SEEN /hpf (0-5); White Blood Cells 0-5 SEEN /hpf (0-5)
[2024-07-23] MEDS: fentaNYL 100 MCG/2 ML Ampul 50 MCG IV (14:20)
[2024-07-23 14:47] LABS: Lactic Acid 1.4 mmol/L (0.4-1.9)
--- NOTE | 2024-07-23 14:54 | PCM.HP.STD ---
HPI - General General Date of Admission: 07/23/24 Date of Service: 07/23/24 Chief Complaint: SOB, weakness HPI Narrative ELSY LORENZO, is a 49-year-old male history of diabetes, hypertension, asthma, JOON, coronary artery disease with double bypass, and A-fib on Eliquis presented [facility] ED 07/23/2024 with several days of feeling unwell with nausea, vomiting, and diarrhea. Has also had shortness of breath, cough as well as wheezing. Squad brought him in today due to pulse ox of 88% and has had a cough with white sputum. Also feels lightheaded with decreased oral intake and decreased urination. Positive for fevers and chills as well. In the ED patient 88% and then saturating mid 90s on 2 L, blood pressure somewhat soft with some blood pressures with systolic in the 90s. Patient afebrile and not tachycardic or tachypneic. Chest x-ray with no discrete infiltrate. BUN 35 and creatinine 1.49 which is slightly up from baseline does not meet criteria for WILEY and potassium 3.1. Patient found to be influenza A positive and hospitalist contacted for admission due to patient feeling generally weak and being dehydrated as well as his slightly low O2 sat. patient evaluated with family member at bedside and reports 3 to 4 days of nausea, vomiting, diarrhea, fever with poor p.o. intake and shortness of breath with cough and wheezing, some abdominal pain when he coughs. No chest pain. Reports compliance with his medicines including his antihypertensives as well as his CPAP throughout his illness. Patient reports he feels dizzy when he stands or sits up. [facility] Medical History Umbilical hernia Asthma Complications Diabetes HTN (hypertension) Home Medications ?Medication ?Instructions ?Recorded ?Last Taken ?Type multivitamin (Multiple Vitamins 1 ea PO DAILY 04/20/17 07/23/24 History tablet) hydralazine 50 mg tablet 50 mg PO TID 12/15/22 07/23/24 History acetaminophen 500 mg tablet 1,000 mg PO Q4H 07/23/24 07/23/24 History albuterol sulfate 90 mcg/actuation 2 puff inhalation Q4H PRN 07/23/24 Unknown History aerosol inhaler shortness of breath or wheezing apixaban 5 mg tablet (Eliquis) 5 mg PO BID 07/23/24 07/23/24 History aspirin 81 mg tablet,delayed 81 mg PO DAILY 07/23/24 07/23/24 History release (Adult Aspirin Regimen) atorvastatin 80 mg tablet 80 mg PO QHS 07/23/24 07/22/24 History brimonidine 0.2 % eye drops 1 drp ophthalmic (eye) BID 07/23/24 07/23/24 History brinzolamide 1 %-brimonidine 0.2 % 1 drp RIGHT EYE BID 07/23/24 Unknown History eye drops,suspension cyanocobalamin (vitamin B-12) 1,000 mcg PO DAILY 07/23/24 07/23/24 History 1,000 mcg capsule dorzolamide 2 % eye drops 1 drp ophthalmic (eye) BID 07/23/24 07/23/24 History fluticasone furoate 100 1 ea inhalation DAILY 07/23/24 07/23/24 History mcg-vilanterol 25 mcg/dose inhalation powder (Breo Ellipta) insulin NPH isoph U-100 human 100 55 unit subcut BID 07/23/24 07/23/24 History unit/mL subcutaneous suspension (Novolin N NPH U-100 Insulin isophane) insulin regular human 100 unit/mL 60 unit IM TID 07/23/24 07/23/24 History injection solution (Novolin R Regular U-100 Insulin) latanoprost 0.005 % eye drops 1 drp RIGHT EYE DAILY 07/23/24 Unknown History magnesium oxide 400 mg (241.3 mg 400 mg PO DAILY 07/23/24 07/23/24 History magnesium) tablet metoprolol succinate 50 mg 150 mg PO DAILY 07/23/24 07/23/24 History tablet,extended release 24 hr omeprazole 40 mg capsule,delayed 40 mg PO DAILY 07/23/24 07/23/24 History release ondansetron 4 mg disintegrating 4 mg PO Q8 PRN Nausea 07/23/24 Unknown History tablet spironolactone 25 mg tablet 25 mg PO DAILY 07/23/24 07/23/24 History timolol maleate 0.5 % eye drops 1 drp RIGHT EYE BID 07/23/24 07/23/24 History tirzepatide 5 mg/0.5 mL 5 mg subcut MO 07/23/24 07/15/24 History subcutaneous pen injector ([place]) torsemide 20 mg tablet 40 mg PO BID 07/23/24 07/23/24 History vitamin D3 500 unit-folic acid 1 1 tab PO DAILY 07/23/24 07/23/24 History mg tablet (Roxifol-D) Allergy/AdvReac Type Severity Reaction Status Date / Time Penicillins (PCN) AdvReac ABDOMINAL Verified 07/23/24 11:54 PAIN, SEVERE DIARRHEA Surgical History History of hernia surgery History of ankle surgery History of open heart surgery Social History household members: spouse Smoking Status: Former smoker ROS ROS Narrative General: Fevers HENT: Headaches EYES: Denies changes in vision Resp: Coughing, wheezing, short of breath Cardiac: Denies chest pain GI: Has had some abdominal pain, diarrhea, nausea and vomiting : Some decreased urination Extremity: Chronic swelling lower extremities MSK: Generalized weakness Neuro: Denies any numbness/tingling, lightheadedness when upright Heme: Denies any bleeding or bruising Skin: Denies rashes Psychiatric: Feels generally unwell Vital Signs Vital Signs Vital Signs: 07/23/24 11:50 07/23/24 11:54 07/23/24 12:13 Temperature 98.1 F 98.1 F Temperature Source Oral Oral Pulse Rate 67 69 Respiratory Rate 18 17 Blood Pressure 113/51 L 113/51 L Blood Pressure Mean 71 71 Pulse Ox 97 98 91 Oxygen Delivery Method Nasal Cannula Nasal Cannula Room Air Oxygen Flow Rate (L/min) 2 2 07/23/24 12:32 07/23/24 12:32 07/23/24 12:54 Temperature 98.9 F Temperature Source Oral Pulse Rate 67 66 Respiratory Rate 14 Blood Pressure 94/48 L 99/49 L Blood Pressure Mean 63 65 Pulse Ox 94 96 Oxygen Delivery Method Nasal Cannula Room Air Oxygen Flow Rate (L/min) 2 07/23/24 13:00 07/23/24 14:00 07/23/24 14:24 Temperature 98.9 F 98.9 F 98.9 F Temperature Source Oral Oral Pulse Rate 66 68 68 Respiratory Rate 17 18 18 Blood Pressure 99/49 L 108/59 L 108/59 L Blood Pressure Mean 65 75 75 Pulse Ox 96 96 96 Oxygen Delivery Method Nasal Cannula Nasal Cannula Oxygen Flow Rate (L/min) 2 2 Weight Weight: 167.1 kg Body Mass Index (BMI) 52.8 Physical Exam Narrative General: Alert, oriented HEENT: Atraumatic, normocephalic Eyes: Anicteric, normal conjunctiva, extraocular movements grossly intact Neck: Supple Respiratory: Diffuse wheezing with increased respiratory effort Cardiovascular: Regular rate and rhythm GI: Soft, little bit tender without rebound, guarding, rigidity Extremities: Nonpitting lower extremity edema Musculoskeletal: Moving all extremities Neuro: No overt focal neurological deficits Skin: No rashes appreciated Psych: Cooperative Results Lab / Micro Data 07/23/24 11:26 07/23/24 11:26 Labs: Laboratory Results - last 24 hr 07/23/24 11:26: WBC 5.5, RBC 5.38, Hgb 12.8 L, Hct 40.4, MCV 75.1 L, MCH 23.8 L, MCHC 31.7 L, RDW Std Deviation 45.4 H, RDW Coeff of Osorio 16.9 H, Plt Count 216, MPV 10.5, Immature Gran % (Auto) 0.400, Neut % (Auto) 63.1, Lymph % (Auto) 20.7, [place] % (Auto) 15.6 H, Eos % (Auto) 0.0, Baso % (Auto) 0.2, Absolute Neuts (auto) 3.4, Absolute Lymphs (auto) 1.13, Nucleated RBC % 0, PT 16.6 H, INR 1.3, APTT 57.2 H, Sodium 134 L, Potassium 3.1 L, Chloride 96 L, Carbon Dioxide 27.0, Anion Gap 10, BUN 35 H, Creatinine 1.49 H, Estim Creat Clear Calc 92.82, Est GFR (MDRD) Af Amer 64, Est GFR (MDRD) Non-Af 53 L, BUN/Creatinine Ratio 23.5 H, Glucose 113 H, Calcium 8.9, Total Bilirubin 0.60, AST 77 H, ALT 53, Alkaline Phosphatase 90, Total Protein 7.3, Albumin 3.0 L, Globulin 4.3 H, Albumin/Globulin Ratio 0.7 L 07/23/24 12:30: Lactic Acid 1.4 07/23/24 13:42: Urine Color Yellow, Urine Clarity Sl. Cloudy, Urine pH 5.0, Ur Specific [place] 1.020, Urine Protein 30 H, Urine Glucose (UA) Normal, Urine Ketones Negative, Urine Occult Blood Negative, Urine Nitrite Negative, Urine Bilirubin Negative, Urine Urobilinogen Normal, Ur Leukocyte Esterase Negative, Urine RBC 0 SEEN, Urine WBC 0-5 SEEN, Ur Squamous Epith Cells 0-5 SEEN, Urine Bacteria 1+, Hyaline Casts 0-5 SEEN, Urine Mucus 1+ Micro: Microbiology 07/23/24 12:37 Mucosa - Nose SARS-CoV-2, Influenza & RSV (PCR) - Final Influenzae A Rhythm Strip Rhythm Strip: Sinus Rhythm Rate: 64 Ectopy: None Imaging Radiology Impression Chest X-Ray 07/23/24 12:40 IMPRESSION: Mild cardiomegaly pulmonary vascular congestion. No acute infiltrate. Reading Location: [facility] Assessment & Plan Assessment/Plan (1) Hypoxia: (2) Influenza A: PLAN: Plan # Acute hypoxia secondary to acute exacerbation of asthma secondary to influenza A -Admit to floor, continuous O2 monitoring -Chest x-ray: -Chest x-ray with some diffuse changes but no discrete infiltrate, a queried mild pulmonary congestion however patient with no signs or symptoms of fluid overload at this time and there is an alternate explanation for shortness of breath and decreased O2 sat -Patient influenza A positive -O2 in place, wean as tolerated -IV methylprednisone -Scheduled DuoNebs -Albuterol prn -Patient is outside of the window to qualify for Tamiflu -Incentive spirometer -Mucinex -IV fluids and supportive care #Hypertension -Patient hypotensive with systolic in the 90s, holding home antihypertensives -Suspect this is in part due to patient's volume depletion and poor p.o. intake on top of his compliance with his antihypertensives -Gentle IV fluids given patient's on home torsemide -Holding home torsemide #JOON -Continue home CPAP # CKD stage III a -BUN and creatinine are slightly up from baseline but do not meet criteria for WILEY -IV fluids -Avoid nephrotoxic agents -Daily BMPs -Holding home torsemide at this time #Type 2 diabetes mellitus -Glucose checks and sliding scale insulin -Given patient's poor p.o. intake will decrease his long-acting insulin and can uptitrate as tolerated # History of coronary artery disease -With previous double bypass -Continue home Eliquis and aspirin -Continue home statin -Holding home metoprolol #Paroxysmal Atrial Fibrillation -EKG: Normal sinus rhythm with right bundle branch block and normal rate -Rate control: Metoprolol -Anticoagulation: Eliquis #Hypokalemia -Replace -Repeat in the AM #Morbid obesity -BMI documented as 52.9 kg/m? at time of admission -Complicates treatment, prognosis, outcomes -Recommend weight loss and lifestyle changes #DVT ppx: Ana Rubio MD Charges/Coding Visit Charges Inpatient E&M: 17737 Init Hosp L2
[2024-07-23] MEDS: 0.9% Normal Saline (1000mL) 1,000 ML 50 ML IV (15:28)
[2024-07-23] MEDS: MethylPREDNISolone 125 MG/2 ML Vial IV (15:28)
[2024-07-23] MEDS: Ipratropium/Albuterol Sulfate 3 ML AMPUL.NEB INHALATION ×2 (16:44→20:57)
[2024-07-23] MEDS: Potassium Chloride Oral Tablet 20 MEQ 60 MEQ PO (17:29)
[2024-07-23] MEDS: Insulin Lispro 100 UNIT/ML INSULN.PEN SC ×2 (17:30→22:31)
[2024-07-23] MEDS: Insulin Lispro 100 UNIT/ML INSULN.PEN 40 UNIT SC (17:30)
[2024-07-23 17:41] LABS: Bedside Glucose 205 mg/dL (74-106)
[2024-07-23] MEDS: guaiFENesin 1,200 MG Tablet 1200 MG PO (22:16)
[2024-07-23] MEDS: APIXABAN 5 MG TABLET PO (22:16)
[2024-07-23] MEDS: Atorvastatin Calcium 80 MG Tablet PO (22:16)
[2024-07-23] MEDS: BRIMONIDINE 0.2% 5ML BOTTLE 1 DRP OPHTHALMIC (22:26)
[2024-07-23] MEDS: Timolol 0.5% 5ML OPTH.BTL 1 DRP RIGHT EYE (22:27)
[2024-07-23] MEDS: Insulin NPH Human 100 UNITS/ML PEN 45 UNITS SC (22:30)
[2024-07-23 23:11] LABS: Bedside Glucose 303 mg/dL (74-106)
[2024-07-24] VITALS (11 sets, daily range): BP systolic 124–137; BP diastolic 58–60; PULSE 69–86; RESP 18–22; TEMP 36.3–36.9; O2SAT 92–98; BMI 52.4
[2024-07-24] MEDS: Ipratropium/Albuterol Sulfate 3 ML AMPUL.NEB INHALATION ×6 (04:00→23:16)
[2024-07-24] MEDS: oxyCODONE 5 MG Tablet PO ×2 (05:48→17:34)
[2024-07-24 07:47] LABS: Absolute Lymphocyte Count 0.37 X10^3/uL (0.83-4.51); Absolute Neutrophil Count 2.2 X10^3/uL (2.0-7.7); Hematocrit 36.7 % (40-54); Hemoglobin 11.4 g/dL (13.0-16.5); Lymphocyte # 0.37 X10^3/ul (0.83-4.51); Lymphocyte % 13.7 % (19-41); Mean Corp Hgb Conc 31.1 g/dL (32-36); Mean Corpuscular Hgb 23.4 pg (27.0-32.0); Mean Corpuscular Volume 75.4 fL (80-94); Mean Platelet Vol. 10.3 fl (6.2-12.0); Monocyte# 0.17 X10^3/uL; Monocyte% 6.3 % (0-10); NRBC Flagged by Analyzer 0 % (0-5); Neutrophil # 2.15 X10^3/uL (2.7-7.7); Neutrophil % 79.6 % (47-70); POSITIVE DIFFERENTIAL YES; Platelet Count 140 K/mm3 (150-450); RBC Distribution Width CV 16.9 % (11.6-14.6); RBC Distribution Width SD 45.9 fl (35.1-43.9); Red Blood Count 4.87 M/mm3 (4.6-6.2); White Blood Count 2.7 K/mm3 (4.4-11.0)
[2024-07-24] MEDS: Insulin Lispro 100 UNIT/ML INSULN.PEN 40 UNIT SC ×3 (07:56→17:34)
[2024-07-24] MEDS: Insulin Lispro 100 UNIT/ML INSULN.PEN SC ×5 (07:56→21:33)
[2024-07-24 07:57] LABS: Differential Indicated SCAN CRITERIA MET
[2024-07-24] MEDS: Insulin NPH Human 100 UNITS/ML PEN 45 UNITS SC (07:58)
[2024-07-24 08:26] LABS: Anion Gap 10 (5-15); BUN 35 mg/dL (7-18); BUN/Creat Ratio 24.5 RATIO (10-20); Calcium,Total 8.3 mg/dL (8.5-10.1); Chloride 95 mmol/L (98-107); Creatinine, Serum 1.43 mg/dL (0.70-1.30); EST Glomerular Filtration Rate 56 mL/min (>60); Est Glom Filt Rate - Afr Amer 67 mL/min (>60); Estimated Creatinine Clearance 96.22 ml/min; Glucose 478 mg/dL (74-106); Potassium 4.6 mmol/L (3.5-5.1); Sodium Level 129 mmol/L (136-145)
[2024-07-24] MEDS: Pantoprazole Sodium 40 MG Tablet PO (08:27)
[2024-07-24] MEDS: APIXABAN 5 MG TABLET PO ×2 (08:27→21:29)
[2024-07-24] MEDS: guaiFENesin 1,200 MG Tablet 1200 MG PO ×2 (08:27→21:29)
[2024-07-24] MEDS: Aspirin E.C. 81 MG Tablet PO (08:27)
[2024-07-24 08:28] LABS: Bedside Glucose 475 mg/dL (74-106)
[2024-07-24] MEDS: BRIMONIDINE 0.2% 5ML BOTTLE 1 DRP OPHTHALMIC ×2 (08:29→21:29)
[2024-07-24] MEDS: Timolol 0.5% 5ML OPTH.BTL 1 DRP RIGHT EYE ×2 (08:29→21:29)
[2024-07-24] MEDS: Latanoprost 0.005% 1 Bottle 1 DRP RIGHT EYE (08:29)
--- NOTE | 2024-07-24 10:30 | CASEMGMT ---
Addendum entered by Gladys Hurst 07/24/24 12:36: Strata: 3 Original Note: RN?CM?CPS TEAM LEAD?CM?to room to meet with patient for initial transition planning/care coordination?assessment.?RN?CM?introduced self and role at [facility].? Pt voices understanding and consents to?assessment?at this time.? Pt sitting up in chair in room in no distress at this time.? Pt is A/O at this time and answers all questions appropriately.?? Care providers, pharmacy, and demographics verified/updated at this time. PCP: Dr Hussein Specialists: Dr Hoang-mainspring torque tester @ [facility]/[employer], Dr Samara Green-gas meter repair supervisor, fly rail operator @ [facility]/[employer] (doesn't remember name), Cardiac surgeon @ [facility]. 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 Preferred Pharmacy: [facility] @ discharge. Otherwise, goes to [facility]: Prescription Benefit:?yes LNOK: , D[place]. One adult child/18-yrs-old. Living Arrangements: Lives w/his in 2-story home w/one small step to enter. [employer]. Independent w/ADL's and states manages his own medications. Works full-time. does most home mgnt tasks. Transportation:?Pt states he can drive, but does not drive often d/t his vision/eye issues. His provided most transportation. DME: ?States has the following DME:?CPAP, functioning glucometer w/supplies. He states he has all needed insulin and needles @ home as well as all PO medications. Pt does not have home O2 and does not have a pulse ox. Recommended purchase of a pulse ox and made aware of locations that sell these. Discussed possible need of home O2 and home-O2 set-up process, if he qualifies. Verbal review of DME companies given and pt chose [employer]. Pt was made aware of importance of calling DME co prior to discharge to make arrangements for home O2 delivery (If he qualifies for home O2). Pt voices understanding. Pt states no need for further DME at this time.? HHC/SNF: No hx of SNF. Has had HHC in the past after heart surgery. Denies need for HHC or OP therapy. Pt wishes to return home and states has no concerns with going home at time of discharge.? CM?to follow for home oxygen needs and any further discharge planning/needs.? Pt voices no further concerns/needs at this time.? Advised pt to ask for?CM?if any further questions/concerns/needs arise.? Voices understanding. PLAN:??Home. Follow for possible need of home O2. Olivia BSN?RN?CM
--- NOTE | 2024-07-24 11:45 | PN_ITS ---
Subjective Subjective Patient seen and examined. Complain of some wheezing and shortness of breath. He is on 2 L of oxygen. He denies any cough or chest pain, palpitations, dizziness, nausea or vomiting. Review of systems otherwise negative. Objective Data Objective Data Vital Signs: Vital Signs Temp Pulse Resp BP Pulse Ox O2 Del Method O2 Flow Rate 98.5 F 78 20 H 137/60 H 94 Nasal Cannula 2 07/24/24 08:25 07/24/24 08:25 07/24/24 08:07/24/24 08:07/24/24 08:07/24/24 08:07/24/24 08:25 Oxygen Flow Rate (L/min) 2 Oxygen Delivery Method Nasal Cannula Weight: 365 lb 4.895 oz Body Mass Index (BMI) 52.4 Intake & Output: Intake and Output for Last 24 Hours 07/22/24 07/23/24 07/24/24 23:59 23:59 23:59 Intake Total 1200 / 1560 1706.67 / 1706.67 Output Total 400 / 600 500 / 500 Balance 800 / 960 1206.67 / 1206.67 Lab / Micro Data 07/24/24 07:06 07/24/24 07:06 Labs: Laboratory Results - last 24 hr 07/23/24 11:26: WBC 5.5, RBC 5.38, Hgb 12.8 L, Hct 40.4, MCV 75.1 L, MCH 23.8 L, MCHC 31.7 L, RDW Std Deviation 45.4 H, RDW Coeff of Osorio 16.9 H, Plt Count 216, MPV 10.5, Immature Gran % (Auto) 0.400, Neut % (Auto) 63.1, Lymph % (Auto) 20.7, [place] % (Auto) 15.6 H, Eos % (Auto) 0.0, Baso % (Auto) 0.2, Absolute Neuts (auto) 3.4, Absolute Lymphs (auto) 1.13, Nucleated RBC % 0, PT 16.6 H, INR 1.3, APTT 57.2 H, Sodium 134 L, Potassium 3.1 L, Chloride 96 L, Carbon Dioxide 27.0, Anion Gap 10, BUN 35 H, Creatinine 1.49 H, Estim Creat Clear Calc 92.82, Est GFR (MDRD) Af Amer 64, Est GFR (MDRD) Non-Af 53 L, BUN/Creatinine Ratio 23.5 H, G lucose 113 H, Calcium 8.9, Total Bilirubin 0.60, AST 77 H, ALT 53, Alkaline Phosphatase 90, Total Protein 7.3, Albumin 3.0 L, Globulin 4.3 H, A lbumin/Globulin Ratio 0.7 L 07/23/24 12:30: Lactic Acid 1.4 07/23/24 13:42: Urine Color Yellow, Urine Clarity Sl. Cloudy, Urine pH 5.0, Ur Specific [place] 1.020, Urine Protein 30 H, Urine Glucose (UA) Normal, Urine Ketones Negative, Urine Occult Blood Negative, Urine Nitrite Negative, Urine Bilirubin Negative, Urine Urobilinogen Normal, Ur Leukocyte Esterase Negative, Urine RBC 0 SEEN, Urine WBC 0-5 SEEN, Ur Squamous Epith Cells 0-5 SEEN, Urine Bacteria 1+, Hyaline Casts 0-5 SEEN, Urine Mucus 1+ 07/23/24 17:21: POC Glucose 205 H 07/23/24 22:29: POC Glucose 303 H 07/24/24 07:06: WBC 2.7 L, RBC 4.87, Hgb 11.4 L, Hct 36.7 L, MCV 75.4 L, MCH 23.4 L, MCHC 31.1 L, RDW Std Deviation 45.9 H, RDW Coeff of Osorio 16.9 H, Plt Count 140 L, MPV 10.3, Immature Gran % (Auto) 0.400, Neut % (Auto) 79.6 H, Lymph % (Auto) 13.7 L, [place] % (Auto) 6.3, Eos % (Auto) 0.0, Baso % (Auto) 0.0, Absolute Neuts (auto) 2.2, Absolute Lymphs (auto) 0.37 L, Nucleated RBC % 0, Diff Path Review October, Sodium 129 L, Potassium 4.6, Chloride 95 L, Carbon Dioxide 24.0, Anion Gap 10, BUN 35 H, Creatinine 1.43 H, Estim Creat Clear Calc 96.22, Est GFR (MDRD) Af Amer 67, Est GFR (MDRD) Non-Af 56 L, BUN/Creatinine Ratio 24.5 H, Glucose 478 H*, Calcium 8.3 L 07/24/24 07:54: POC Glucose 475 H* Micro: Microbiology 07/23/24 18:15 Sputum, Expectorated/Coughed Gram Stain - Final 07/23/24 13:42 Urine, Clean Catch Urine Culture - Preliminary Culture exhibits no growth. 07/23/24 12:37 Mucosa - Nose SARS-CoV-2, Influenza & RSV (PCR) - Final Influenzae A Radiography Diagnostic Testing: Radiology Impression Chest X-Ray 07/23/24 12:40 IMPRESSION: Mild cardiomegaly pulmonary vascular congestion. No acute infiltrate. Reading Location: [facility] Rhythm Strip Rhythm Strip: Sinus Rhythm Rate: 64 Ectopy: None Physical Exam Const alert, oriented x3, no apparent distress and well nourished Constitutional Narrative: Class III obesity with BMI of 52.4. HEENT normocephalic, head/scalp atraumatic, moist oral mucous membranes and oropharynx normal Eyes PERRL and EOMs intact bilaterally Neck no lymphadenopathy and supple Lymph Lymphatic: no lymphadenopathy noted and no lymphedema noted Resp Resp Narrative: Mildly diminished breath sounds bibasilarly. Lungs sound tight. Mild wheezing bilaterally. On 2 L of oxygen. Cardio regular rate, regular rhythm, S1 normal heart sound, S2 normal heart sound and no murmurs GI normal to inspection, nondistended, normoactive bowel sounds, soft to palpation, non-tender and non-distended Extremity normal capillary refill, no clubbing, cyanosis or edema and no calf tenderness General Extremity: no tenderness to palpation of joints or extremities Skin Skin Narrative: sternotomy scar Neuro CN's II-XII intact bilaterally, no focal motor deficits and no sensory deficits noted Motor Exam: strength 5/5 throughout and general weakness Psych thought process normal, cooperative and affect normal Appearance: appropriate Assessment & Plan Assessment/Plan (1) Hypoxia: (2) Influenza A: PLAN: Plan #Hypoxia due to influenza A infection and acute exacerbation of asthma * Currently on 2 L of oxygen. Lungs sound quite tight. Respiratory panel was positive for influenza. * On IV Solu-Medrol. On breathing treatments and bronchodilators. * Chest x-ray on admission showed diffuse changes but no evidence of infiltrate. * Patient outside of window for Tamiflu so not placed on Tamiflu. * Titrate oxygen to maintain saturation above 90%. #Hypertension: Patient was hypotensive on admission so his BP meds were held. #JOON: On CPAP nightly #Type 2 diabetes mellitus with hyperglycemia * His blood sugars have been trending upwards. Blood sugar was around [address] back on home dose of Lantus. High-dose insulin sliding scale. Accu-Cheks ACHS. #History of CAD s/p CABG: On aspirin. Also on statin. Metoprolol held due to hypotension #Paroxysmal A-fib: On Eliquis and metoprolol. #Hypokalemia: Resolved with replacement #Class III obesity: BMI is 52.4. Complicates acute care, expected recovery and prognosis. DVT prophylaxis: on eliquis Charges/Coding Visit Charges Inpatient E&M: 93986 Subs Hosp L2
[2024-07-24 12:14] LABS: Bedside Glucose 430 mg/dL (74-106)
[2024-07-24 12:14] LABS: Bedside Glucose 370 mg/dL (74-106)
[2024-07-24 12:14] LABS: Bedside Glucose 500 mg/dL (74-106)
[2024-07-24 16:47] LABS: Bedside Glucose 227 mg/dL (74-106)
[2024-07-24] MEDS: Benzonatate 100 MG Capsule PO (17:34)
[2024-07-24] MEDS: Atorvastatin Calcium 80 MG Tablet PO (21:29)
[2024-07-24] MEDS: 0.9% Saline Lock 10 ML Syringe IV (21:29)
[2024-07-24] MEDS: Insulin NPH Human 100 UNITS/ML PEN 55 UNITS SC (21:32)
[2024-07-24 22:03] LABS: Bedside Glucose 221 mg/dL (74-106)
[2024-07-25] VITALS (13 sets, daily range): BP systolic 139–179; BP diastolic 67–92; PULSE 79–96; RESP 16–25; TEMP 36.6–39.1; O2SAT 93–99; BMI 52.4
[2024-07-25] MEDS: Ipratropium/Albuterol Sulfate 3 ML AMPUL.NEB INHALATION ×5 (03:48→20:20)
[2024-07-25] MEDS: BENZOCAINE/MENTHOL 1 LOZENGE MUCOUS MEM ×3 (04:03→14:52)
[2024-07-25] MEDS: Benzonatate 100 MG Capsule PO ×2 (04:03→21:24)
--- NOTE | 2024-07-25 04:37 | CPS ---
pt did not want to wear his cpap tonight
[2024-07-25] MEDS: 0.9% Saline Lock 10 ML Syringe IV ×4 (06:10→22:30)
[2024-07-25] MEDS: Insulin Lispro 100 UNIT/ML INSULN.PEN SC ×4 (06:10→21:29)
[2024-07-25 06:33] LABS: Bedside Glucose 330 mg/dL (74-106)
[2024-07-25 07:57] LABS: Absolute Lymphocyte Count 0.47 X10^3/uL (0.83-4.51); Absolute Neutrophil Count 6.4 X10^3/uL (2.0-7.7); Basophil# 0.01 X10^3/uL; Basophil% 0.1 % (0-1); Hematocrit 37.3 % (40-54); Hemoglobin 11.9 g/dL (13.0-16.5); Lymphocyte # 0.47 X10^3/ul (0.83-4.51); Lymphocyte % 6.4 % (19-41); Mean Corp Hgb Conc 31.9 g/dL (32-36); Mean Corpuscular Volume 75.4 fL (80-94); Mean Platelet Vol. 10.3 fl (6.2-12.0); Monocyte% 5.4 % (0-10); NRBC Flagged by Analyzer 0 % (0-5); Neutrophil # 6.42 X10^3/uL (2.7-7.7); Neutrophil % 87.4 % (47-70); POSITIVE DIFFERENTIAL YES; Platelet Count 159 K/mm3 (150-450); RBC Distribution Width CV 16.8 % (11.6-14.6); RBC Distribution Width SD 45.1 fl (35.1-43.9); Red Blood Count 4.95 M/mm3 (4.6-6.2); White Blood Count 7.4 K/mm3 (4.4-11.0)
[2024-07-25 08:24] LABS: Pathologist Review Reviewed
[2024-07-25 08:25] LABS: Anion Gap 11 (5-15); BUN 34 mg/dL (7-18); BUN/Creat Ratio 25.6 RATIO (10-20); Calcium,Total 8.7 mg/dL (8.5-10.1); Chloride 96 mmol/L (98-107); Creatinine, Serum 1.33 mg/dL (0.70-1.30); EST Glomerular Filtration Rate 60 mL/min (>60); Est Glom Filt Rate - Afr Amer 73 mL/min (>60); Glucose 293 mg/dL (74-106); Potassium 4.5 mmol/L (3.5-5.1); Sodium Level 128 mmol/L (136-145)
[2024-07-25] MEDS: Aspirin E.C. 81 MG Tablet PO (08:51)
[2024-07-25] MEDS: Pantoprazole Sodium 40 MG Tablet PO (08:51)
[2024-07-25] MEDS: guaiFENesin 1,200 MG Tablet 1200 MG PO (08:51)
[2024-07-25] MEDS: Acetaminophen 325 MG Tablet 650 MG PO ×3 (08:51→22:29)
[2024-07-25] MEDS: Insulin Lispro 100 UNIT/ML INSULN.PEN 40 UNIT SC ×3 (08:52→16:53)
[2024-07-25] MEDS: Insulin NPH Human 100 UNITS/ML PEN 55 UNITS SC ×2 (08:53→21:30)
[2024-07-25] MEDS: APIXABAN 5 MG TABLET PO ×2 (08:53→22:30)
[2024-07-25] MEDS: Latanoprost 0.005% 1 Bottle 1 DRP RIGHT EYE (08:54)
[2024-07-25] MEDS: Timolol 0.5% 5ML OPTH.BTL 1 DRP RIGHT EYE ×2 (08:54→21:31)
[2024-07-25] MEDS: BRIMONIDINE 0.2% 5ML BOTTLE 1 DRP OPHTHALMIC ×2 (08:55→21:34)
[2024-07-25 09:03] LABS: Bedside Glucose 292 mg/dL (74-106)
[2024-07-25] MEDS: Furosemide 40 MG/4 ML Vial IV ×2 (09:49→18:23)
--- NOTE | 2024-07-25 10:46 | PN_ITS ---
Subjective Subjective Patient seen and examined. He says he feels a bit edematous. He admits to mild wheezing, but denies any chest pain, palpitations, dizziness, nausea, vomiting or any other symptoms. Review of systems is otherwise negative. He has remained hemodynamically stable. Objective Data Objective Data Vital Signs: Vital Signs Temp Pulse Resp BP Pulse Ox O2 Del Method O2 Flow Rate 98.6 F 88 20 H 142/69 H 93 Nasal Cannula 2 07/25/24 09:43 07/25/24 10:43 07/25/24 10:43 07/25/24 09:43 07/25/24 09:43 07/25/24 09:43 07/25/24 09:43 Oxygen Flow Rate (L/min) 2 Oxygen Delivery Method Nasal Cannula Weight: 365 lb 8.423 oz Body Mass Index (BMI) 52.4 Intake & Output: Intake and Output for Last 24 Hours 07/23/24 07/24/24 07/25/24 23:59 23:59 23:59 Intake Total 1200 / 1560 2706.67 / 2706.67 Output Total 400 / 600 1700 / 1700 300 / 300 Balance 800 / 960 1006.67 / 1006.67 -300 / -300 Lab / Micro Data 07/25/24 07:45 07/25/24 07:45 Labs: Laboratory Results - last 24 hr 07/24/24 07:06: Diff Path Review Reviewed 07/24/24 09:05: POC Glucose 500 H* 07/24/24 10:15: POC Glucose 430 H 07/24/24 11:48: POC Glucose 370 H 07/24/24 16:22: POC Glucose 227 H 07/24/24 21:31: POC Glucose 221 H 07/25/24 06:08: POC Glucose 330 H 07/25/24 07:45: WBC 7.4, RBC 4.95, Hgb 11.9 L, Hct 37.3 L, MCV 75.4 L, MCH 24.0 L, MCHC 31.9 L, RDW Std Deviation 45.1 H, RDW Coeff of Osorio 16.8 H, Plt Count 159, MPV 10.3, Immature Gran % (Auto) 0.700, Neut % (Auto) 87.4 H, Lymph % (Auto) 6.4 L, [place] % (Auto) 5.4, Eos % (Auto) 0.0, Baso % (Auto) 0.1, Absolute Neuts (auto) 6.4, Absolute Lymphs (auto) 0.47 L, Nucleated RBC % 0, Sodium 128 L , Potassium 4.5, Chloride 96 L, Carbon Dioxide 22.0, Anion Gap 11, BUN 34 H, C reatinine 1.33 H, Estim Creat Clear Calc 103.50, Est GFR (MDRD) Af Amer 73, Est GFR (MDRD) Non-Af 60, BUN/Creatinine Ratio 25.6 H, Glucose 293 H, Calcium 8.7 07/25/24 08:33: POC Glucose 292 H Micro: Microbiology 07/23/24 18:15 Sputum, Expectorated/Coughed Gram Stain - Final 07/23/24 18:15 Sputum, Expectorated/Coughed Respiratory Culture - Preliminary Mixed normal respiratory elio. No Haemophilus, Streptococcus pneumoniae, beta-hemolytic Streptococcus or Staphylococcus aureus isolated. 07/23/24 13:42 Urine, Clean Catch Urine Culture - Final Culture exhibits no growth. 07/23/24 12:37 Mucosa - Nose SARS-CoV-2, Influenza & RSV (PCR) - Final Influenzae A Rhythm Strip Rhythm Strip: Sinus Rhythm Rate: 64 Ectopy: None Physical Exam Const alert, oriented x3, no apparent distress and well nourished Constitutional Narrative: Class III obesity with BMI of 52.4. General Appearance: cooperative HEENT normocephalic, head/scalp atraumatic, moist oral mucous membranes and oropharynx normal Eyes PERRL and EOMs intact bilaterally Neck no lymphadenopathy and supple Lymph Lymphatic: no lymphadenopathy noted and no lymphedema noted Resp Resp Narrative: Mildly diminished breath sounds bibasilarly. Lungs sound tight. Mild wheezing bilaterally. On 2 L of oxygen. Cardio regular rate, regular rhythm, S1 normal heart sound, S2 normal heart sound and no murmurs GI normal to inspection, nondistended, normoactive bowel sounds, soft to palpation, non-tender and non-distended Extremity normal capillary refill, no clubbing, cyanosis or edema and no calf tenderness General Extremity: no tenderness to palpation of joints or extremities Skin Skin Narrative: sternotomy scar Neuro CN's II-XII intact bilaterally, no focal motor deficits and no sensory deficits noted Motor Exam: strength 5/5 throughout and general weakness Psych thought process normal, cooperative and affect normal Appearance: appropriate Assessment & Plan Assessment/Plan (1) Hypoxia: (2) Influenza A: PLAN: Plan #Hypoxia due to influenza A infection and acute exacerbation of asthma * Remains on 2 L of oxygen. Lungs sound quite tight. Respiratory panel was positive for influenza. * On IV Solu-Medrol. On breathing treatments and bronchodilators. * Chest x-ray on admission showed diffuse changes but no evidence of infiltrate. * Patient outside of window for Tamiflu so not placed on Tamiflu. * Titrate oxygen to maintain saturation above 90%. * in positive balance by 1.5L. Will diurese with IV lasix 40mg to help with fluid overload. #Hypertension: Patient was hypotensive on admission so his BP meds were held. #Hyponatremia * sodium is 128 todya. Was 129 yesterday and 134 on admission. Fluid overload may be contributing. * Being diuresed with IV lasix. * Trend sodium to see if it improves with diuresis. If not, will get further workup. * #JOON: On CPAP nightly #Type 2 diabetes mellitus with hyperglycemia * blood sugars have improved * on NPH insulin 55 units bid. * High-dose insulin sliding scale. Accu-Cheks ACHS. #History of CAD s/p CABG: On aspirin. Also on statin. Metoprolol held due to hypotension #Paroxysmal A-fib: On Eliquis and metoprolol. #Hypokalemia: Resolved with replacement #Class III obesity: BMI is 52.4. Complicates acute care, expected recovery and prognosis. DVT prophylaxis: on eliquis Charges/Coding Visit Charges Inpatient E&M: 08710 Subs Hosp L2
[2024-07-25 11:59] LABS: Bedside Glucose 294 mg/dL (74-106)
[2024-07-25 17:44] LABS: Bedside Glucose 217 mg/dL (74-106)
[2024-07-25] MEDS: oxyCODONE 5 MG Tablet PO (21:23)
[2024-07-25] MEDS: Atorvastatin Calcium 80 MG Tablet PO (21:24)
[2024-07-26] VITALS (19 sets, daily range): BP systolic 108–151; BP diastolic 64–106; PULSE 72–98; RESP 17–26; TEMP 36.7–38.1; O2SAT 5–94; BMI 52.0
[2024-07-26 00:04] LABS: Bedside Glucose 216 mg/dL (74-106)
[2024-07-26] MEDS: Ipratropium/Albuterol Sulfate 3 ML AMPUL.NEB INHALATION ×7 (00:20→23:23)
--- NOTE | 2024-07-26 00:20 | CPS ---
Pt refused CPAP for tonight.
[2024-07-26] MEDS: 0.9% Saline Lock 10 ML Syringe IV ×2 (05:26→17:26)
[2024-07-26] MEDS: Benzonatate 100 MG Capsule PO ×2 (05:30→19:30)
[2024-07-26] MEDS: BENZOCAINE/MENTHOL 1 LOZENGE MUCOUS MEM ×3 (05:30→21:02)
[2024-07-26 06:37] LABS: Absolute Lymphocyte Count 0.35 X10^3/uL (0.83-4.51); Absolute Neutrophil Count 4.6 X10^3/uL (2.0-7.7); Basophil# 0.01 X10^3/uL; Basophil% 0.2 % (0-1); Hemoglobin 10.3 g/dL (13.0-16.5); Lymphocyte # 0.35 X10^3/ul (0.83-4.51); Lymphocyte % 6.8 % (19-41); Mean Corp Hgb Conc 32.2 g/dL (32-36); Mean Corpuscular Hgb 24.1 pg (27.0-32.0); Mean Corpuscular Volume 74.9 fL (80-94); Mean Platelet Vol. 10.4 fl (6.2-12.0); Monocyte# 0.19 X10^3/uL; Monocyte% 3.7 % (0-10); NRBC Flagged by Analyzer 0 % (0-5); Neutrophil # 4.59 X10^3/uL (2.7-7.7); Neutrophil % 88.5 % (47-70); POSITIVE DIFFERENTIAL YES; POSITIVE MORPHOLOGY YES; Platelet Count 123 K/mm3 (150-450); RBC Distribution Width CV 16.7 % (11.6-14.6); RBC Distribution Width SD 45.1 fl (35.1-43.9); Red Blood Count 4.27 M/mm3 (4.6-6.2); White Blood Count 5.2 K/mm3 (4.4-11.0)
[2024-07-26 06:51] LABS: Differential Indicated SCAN CRITERIA MET
[2024-07-26 07:15] LABS: Anion Gap 9 (5-15); BUN 31 mg/dL (7-18); BUN/Creat Ratio 29.2 RATIO (10-20); Calcium,Total 8.4 mg/dL (8.5-10.1); Chloride 94 mmol/L (98-107); Creatinine, Serum 1.06 mg/dL (0.70-1.30); EST Glomerular Filtration Rate 79 mL/min (>60); Est Glom Filt Rate - Afr Amer 95 mL/min (>60); Glucose 338 mg/dL (74-106); Potassium 4.6 mmol/L (3.5-5.1); Sodium Level 128 mmol/L (136-145)
[2024-07-26 08:29] LABS: Atypical Lymphocyte 1+ %
[2024-07-26] MEDS: Insulin Lispro 100 UNIT/ML INSULN.PEN 40 UNIT SC ×3 (08:33→17:21)
[2024-07-26] MEDS: Insulin Lispro 100 UNIT/ML INSULN.PEN SC ×3 (08:34→17:21)
[2024-07-26] MEDS: Aspirin E.C. 81 MG Tablet PO (08:34)
[2024-07-26] MEDS: Acetaminophen 325 MG Tablet 650 MG PO ×2 (08:34→23:12)
[2024-07-26] MEDS: oxyCODONE 5 MG Tablet PO ×2 (08:35→19:30)
[2024-07-26 09:13] LABS: Bedside Glucose 354 mg/dL (74-106)
[2024-07-26] MEDS: guaiFENesin 1,200 MG Tablet 1200 MG PO (09:44)
[2024-07-26] MEDS: APIXABAN 5 MG TABLET PO ×2 (09:44→21:02)
[2024-07-26] MEDS: Insulin NPH Human 100 UNITS/ML PEN 55 UNITS SC (09:44)
[2024-07-26] MEDS: Pantoprazole Sodium 40 MG Tablet PO (09:44)
[2024-07-26] MEDS: BRIMONIDINE 0.2% 5ML BOTTLE 1 DRP OPHTHALMIC ×2 (09:45→21:03)
[2024-07-26] MEDS: Timolol 0.5% 5ML OPTH.BTL 1 DRP RIGHT EYE ×2 (09:45→21:03)
[2024-07-26] MEDS: Furosemide 40 MG/4 ML Vial IV ×2 (09:46→17:25)
[2024-07-26] MEDS: Latanoprost 0.005% 1 Bottle 1 DRP RIGHT EYE (09:46)
--- NOTE | 2024-07-26 09:58 | PN_ITS ---
Subjective Subjective Patient seen and examined. He still feels a bit short of breath. He is on 4L of oxygen. He denies any chest pain, palpitations, dizziness, nausea, vomiting or any other symptoms. Review of systems is otherwise negative. Objective Data Objective Data Vital Signs: Vital Signs Temp Pulse Resp BP Pulse Ox O2 Del Method O2 Flow Rate 98.7 F 94 20 H 108/70 93 Nasal Cannula 4 07/26/24 09:41 07/26/24 09:41 07/26/24 09:41 07/26/24 09:41 07/26/24 09:41 07/26/24 09:41 07/26/24 09:41 Oxygen Flow Rate (L/min) 4 Oxygen Delivery Method Nasal Cannula Weight: 362 lb 7.039 oz Body Mass Index (BMI) 52.0 Intake & Output: Intake and Output for Last 24 Hours 07/24/24 07/25/24 07/26/24 23:59 23:59 23:59 Intake Total 2706.67 / 2706.67 1900 / 1900 360 / 360 Output Total 1700 / 1700 2075 / 2075 2100 / 2100 Balance 1006.67 / 1006.67 -175 / -175 -1740 / -1740 Lab / Micro Data 07/26/24 05:59 07/26/24 05:59 Labs: Laboratory Results - last 24 hr 07/25/24 11:37: POC Glucose 294 H 07/25/24 16:50: POC Glucose 217 H 07/25/24 21:22: POC Glucose 216 H 07/26/24 05:59: WBC 5.2, RBC 4.27 L, Hgb 10.3 L, Hct 32.0 L, MCV 74.9 L, MCH 24.1 L, MCHC 32.2, RDW Std Deviation 45.1 H, RDW Coeff of Osorio 16.7 H, Plt Count 123 L, MPV 10.4, Immature Gran % (Auto) 0.800, Neut % (Auto) 88.5 H, Lymph % (Auto) 6.8 L, [place] % (Auto) 3.7, Eos % (Auto) 0.0, Baso % (Auto) 0.2, Absolute Neuts (auto) 4.6, Absolute Lymphs (auto) 0.35 L, Nucleated RBC % 0, Differential Comment COMMENT, Atypical Lymphocytes 1+, Sodium 128 L, Potassium 4.6, Chloride 94 L, Carbon Dioxide 25.0, Anion Gap 9, BUN 31 H, Creatinine 1.06, Estim Creat Clear Calc 129.20, Est GFR (MDRD) Af Amer 95, Est GFR (MDRD) Non-Af 79, B UN/Creatinine Ratio 29.2 H, Glucose 338 H, Calcium 8.4 L 07/26/24 08:29: POC Glucose 354 H Micro: Microbiology 07/23/24 18:15 Sputum, Expectorated/Coughed Gram Stain - Final 07/23/24 18:15 Sputum, Expectorated/Coughed Respiratory Culture - Final 07/23/24 12:23 Blood Culture (Wb) - Anticubital Left Blood Culture - Preliminary No growth in 48 hours. 07/23/24 12:30 Blood Culture (Wb) - Left Wrist Blood Culture - Preliminary No growth in 48 hours. 07/23/24 13:42 Urine, Clean Catch Urine Culture - Final Culture exhibits no growth. 07/23/24 12:37 Mucosa - Nose SARS-CoV-2, Influenza & RSV (PCR) - Final Influenzae A Rhythm Strip Rhythm Strip: Sinus Rhythm Rate: 64 Ectopy: None Physical Exam Const alert, oriented x3, no apparent distress and well nourished Constitutional Narrative: Class III obesity with BMI of 52.4. General Appearance: cooperative HEENT normocephalic, head/scalp atraumatic, moist oral mucous membranes and oropharynx normal Eyes PERRL and EOMs intact bilaterally Neck no lymphadenopathy and supple Lymph Lymphatic: no lymphadenopathy noted and no lymphedema noted Resp Resp Narrative: Mildly diminished breath sounds bibasilarly. No crackles. Mild wheezing bilaterally. Now on 4 L of oxygen. Cardio regular rate, regular rhythm, S1 normal heart sound, S2 normal heart sound and no murmurs GI normal to inspection, nondistended, normoactive bowel sounds, soft to palpation, non-tender and non-distended Extremity normal capillary refill, no clubbing, cyanosis or edema and no calf tenderness General Extremity: no tenderness to palpation of joints or extremities Skin Skin Narrative: sternotomy scar Neuro CN's II-XII intact bilaterally, no focal motor deficits and no sensory deficits noted Motor Exam: strength 5/5 throughout and general weakness Psych thought process normal, cooperative and affect normal Appearance: appropriate Assessment & Plan Assessment/Plan (1) Hypoxia: (2) Influenza A: PLAN: Plan #Hypoxia due to influenza A infection and acute exacerbation of asthma * Now on 4 L of oxygen. Lungs sound quite tight. Respiratory panel was positive for influenza. * On IV Solu-Medrol. On breathing treatments and bronchodilators. * Chest x-ray on admission showed diffuse changes but no evidence of infiltrate. * Patient outside of window for Tamiflu so not placed on Tamiflu. * Titrate oxygen to maintain saturation above 90%. * in negative balcnce by 108mls * continue diuresis with lasix. * switch IV solumedrol to PO prednisone * #Hypertension: Patient was hypotensive on admission so his BP meds were held. #Hyponatremia * sodium is still 128 today. * Being diuresed with IV lasix. * continue diuresis and monitor to see improvement * * #JOON: On CPAP nightly #Type 2 diabetes mellitus with hyperglycemia * blood sugars remain elevated * on NPH insulin 55 units bid. Will increase to 65mg bid * High-dose insulin sliding scale. Accu-Cheks ACHS. #History of CAD s/p CABG: On aspirin. Also on statin. Metoprolol held due to hypotension #Paroxysmal A-fib: On Eliquis and metoprolol. #Hypokalemia: Resolved with replacement #Class III obesity: BMI is 52.4. Complicates acute care, expected recovery and prognosis. DVT prophylaxis: on eliquis Charges/Coding Visit Charges Inpatient E&M: 94939 Subs Hosp L2
[2024-07-26 12:45] LABS: Bedside Glucose 300 mg/dL (74-106)
[2024-07-26 17:51] LABS: Bedside Glucose 173 mg/dL (74-106)
[2024-07-26] MEDS: Atorvastatin Calcium 80 MG Tablet PO (21:02)
[2024-07-26 21:26] LABS: Bedside Glucose 105 mg/dL (74-106)
[2024-07-27] VITALS (19 sets, daily range): BP systolic 118–163; BP diastolic 58–101; PULSE 18–96; RESP 15–92; TEMP 36.8–37.8; O2SAT 89–98; BMI 51.5
[2024-07-27 05:16] LABS: Absolute Lymphocyte Count 0.63 X10^3/uL (0.83-4.51); Absolute Neutrophil Count 5.5 X10^3/uL (2.0-7.7); Basophil# 0.02 X10^3/uL; Basophil% 0.3 % (0-1); Hematocrit 32.7 % (40-54); Hemoglobin 10.6 g/dL (13.0-16.5); Lymphocyte # 0.63 X10^3/ul (0.83-4.51); Lymphocyte % 9.8 % (19-41); Mean Corp Hgb Conc 32.4 g/dL (32-36); Mean Corpuscular Hgb 24.2 pg (27.0-32.0); Mean Corpuscular Volume 74.7 fL (80-94); Mean Platelet Vol. 10.3 fl (6.2-12.0); Monocyte% 3.1 % (0-10); NRBC Flagged by Analyzer 0 % (0-5); Neutrophil # 5.54 X10^3/uL (2.7-7.7); Neutrophil % 86.2 % (47-70); POSITIVE MORPHOLOGY YES; Platelet Count 155 K/mm3 (150-450); RBC Distribution Width CV 17.1 % (11.6-14.6); RBC Distribution Width SD 45.9 fl (35.1-43.9); Red Blood Count 4.38 M/mm3 (4.6-6.2); White Blood Count 6.4 K/mm3 (4.4-11.0)
[2024-07-27] MEDS: BENZOCAINE/MENTHOL 1 LOZENGE MUCOUS MEM (05:27)
[2024-07-27 05:33] LABS: Anion Gap 7 (5-15); BUN 31 mg/dL (7-18); BUN/Creat Ratio 31.7 RATIO (10-20); Calcium,Total 8.6 mg/dL (8.5-10.1); Chloride 94 mmol/L (98-107); Creatinine, Serum 0.98 mg/dL (0.70-1.30); EST Glomerular Filtration Rate 86 mL/min (>60); Est Glom Filt Rate - Afr Amer 104 mL/min (>60); Estimated Creatinine Clearance 139.74 ml/min; Glucose 192 mg/dL (74-106); Sodium Level 130 mmol/L (136-145)
[2024-07-27 05:39] LABS: Differential Indicated SCAN CRITERIA MET
[2024-07-27] MEDS: Ipratropium/Albuterol Sulfate 3 ML AMPUL.NEB INHALATION ×5 (07:52→23:55)
[2024-07-27 08:02] LABS: Atypical Lymphocyte 1+ %; Platelet Estimate A (ADEQ)
[2024-07-27 08:03] LABS: Ovalocyte 1+
--- NOTE | 2024-07-27 08:21 | CT_ITS ---
PROCEDURE: CTA CHEST W/WO CONTRAST REASON FOR EXAM: Shortness of breath TECHNIQUE: CTA imaging of the chest with intravenous contrast. 3D reconstructions. COMPARISON: None. FINDINGS: Hardware: None. Lymph nodes: No mediastinal hilar or axillary lymphadenopathy. Heart: Cardiomegaly coronary artery calcifications are noted. RV/LV Diameter Ratio: N/A Thoracic Aorta: No thoracic aortic aneurysm or dissection. Pulmonary Vessels: No evidence of acute pulmonary emboli through the major subsegmental branches. Most Proximal Level of Embolus (if embolus present): N/A Lungs and Airways: Diffuse bilateral ground-glass opacities and infiltrates predominantly in the bases Pleura: No pleural effusion. No pneumothorax. Upper Abdomen: Visualized portions of the upper abdominal viscera are unremarkable. Bones: Bone windows are unremarkable. CT/CTA Chest W/WO Contrast IMPRESSION: 1. No CT evidence of acute pulmonary embolism. 2. Bilateral pneumonia 3. Cardiomegaly One or more dose reduction techniques were used (e.g., Automated exposure contr ol, adjustment of the mA and/or kV according to patient size, use of iterative reconstruction technique). Reading Location: [facility]
--- NOTE | 2024-07-27 08:36 | ECHOCS_ITS ---
Reason For Study Reason For Study: Dyspnea/SOB Procedure This was a 2D Doppler, Color Flow transthoracic echocardiogram. The study was technically difficult. The study was technically limited. Contrast injection was performed. Exam performed portable in patient room. Left Ventricle Limited TTE Overall normal LV systolic function. Medication Diluted definity 5ml given slow IV push to enhance endocardial definition. MMode/2D Measurements & Calculations LA dimension(2D): 4.0 cm Time Measurements MV dec time: 0.20 sec Doppler Measurements & Calculations MV E max mukul: 68.1 cm/sec Lat Peak E' Mukul: 13.8 cm/sec MV V2 max: 85.7 cm/sec MV A max mukul: 67.8 cm/sec E/E' lat: 4.9 MV max P.9 mmHg MV E/A: 1.0 MV V2 mean: 49.9 cm/sec MV mean P.2 mmHg MV V2 VTI: 17.0 cm MV P1/2t max mukul: 73.3 cm/sec Ao V2 max: 126.2 cm/sec LV V1 max: 98.2 cm/sec MV P1/2t: 65.3 msec Ao max P.4 mmHg LV V1 max P.9 mmHg MV dec slope: 329.2 cm/sec2 MVA(P1/2t): 3.4 cm2 ECHO/Echo Complete W/ Contrast Interpretation Summary Limited TTE/TDS Overall normal LV systolic function Definty /contrast usedfor better delination of Endocardial border. Similar to previous studt Ordering Physician: Jocelyn Cespedes Performed By: Yunier Owen RCS
[2024-07-27] MEDS: Acetaminophen 325 MG Tablet 650 MG PO (09:33)
[2024-07-27] MEDS: Benzonatate 100 MG Capsule PO (09:35)
[2024-07-27] MEDS: Pantoprazole Sodium 40 MG Tablet PO (09:35)
[2024-07-27] MEDS: Aspirin E.C. 81 MG Tablet PO (09:35)
[2024-07-27] MEDS: predniSONE 20 MG Tablet 40 MG PO (09:35)
[2024-07-27] MEDS: oxyCODONE 5 MG Tablet PO (09:35)
[2024-07-27] MEDS: APIXABAN 5 MG TABLET PO ×2 (09:35→20:41)
[2024-07-27] MEDS: BRIMONIDINE 0.2% 5ML BOTTLE 1 DRP OPHTHALMIC ×2 (09:36→20:41)
[2024-07-27] MEDS: Timolol 0.5% 5ML OPTH.BTL 1 DRP RIGHT EYE ×2 (09:37→20:42)
[2024-07-27] MEDS: Furosemide 40 MG/4 ML Vial IV ×2 (09:37→17:12)
[2024-07-27] MEDS: Latanoprost 0.005% 1 Bottle 1 DRP RIGHT EYE (09:38)
[2024-07-27] MEDS: Insulin Lispro 100 UNIT/ML INSULN.PEN 40 UNIT SC ×3 (09:39→17:17)
[2024-07-27] MEDS: Insulin Lispro 100 UNIT/ML INSULN.PEN SC ×2 (09:39→13:37)
[2024-07-27 10:08] LABS: Allen Test Positive; Base Excess 3 mmol/L (-2 to +2); Bicarbonate 27.4 mmol/L (22-26); Blood Gas Specimen Type ART; Comment 60L 88%; Mode Not entered; O2 Delivery Device airvo; PO2 68 mmHG (75-100); SITE L Radial; SO2 94 % (95-99); Total Carbon Dioxide 29 mmol/L; pCO2 39.5 mmHg (35-45); pH 7.45 (7.35-7.45)
--- NOTE | 2024-07-27 10:30 | PN_ITS ---
Subjective Subjective Patient seen and examined. He said he felt weaker and more short of breath. He had gone up to 6 L of oxygen. He denied any coughing or chest pain, palpitations, dizziness, nausea or vomiting. His was by his bedside. Stat CT of the chest ordered and 2D echo also ordered. Patient subsequently desaturated and required 15 L of oxygen and was only saturating at 87% so was placed on Airvo. Objective Data Objective Data Vital Signs: Vital Signs Temp Pulse Resp BP Pulse Ox O2 Del Method O2 Flow Rate 100.1 F H 87 16 163/58 H 94 Airvo 60 07/27/24 09:58 07/27/24 10:00 07/27/24 10:00 07/27/24 09:58 07/27/24 10:00 07/27/24 09:58 07/27/24 09:58 FiO2 88 07/27/24 10:00 Oxygen Flow Rate (L/min) 60 Oxygen Delivery Method Airvo Weight: 362 lb 7.039 oz Body Mass Index (BMI) 52.0 Intake & Output: Intake and Output for Last 24 Hours 07/25/24 07/26/24 07/27/24 23:59 23:59 23:59 Intake Total 1900 / 1900 2240 / 2240 Output Total 2075 / 2075 4050 / 4050 375 / 375 Balance -175 / -175 -1810 / -1810 -375 / -375 Lab / Micro Data 07/27/24 04:36 07/27/24 04:36 Labs: Laboratory Results - last 24 hr 07/26/24 12:24: POC Glucose 300 H 07/26/24 17:19: POC Glucose 173 H 07/26/24 20:59: POC Glucose 105 07/27/24 04:36: WBC 6.4, RBC 4.38 L, Hgb 10.6 L, Hct 32.7 L, MCV 74.7 L, MCH 24.2 L, MCHC 32.4, RDW Std Deviation 45.9 H, RDW Coeff of Osorio 17.1 H, Plt Count 155, MPV 10.3, Immature Gran % (Auto) 0.600, Neut % (Auto) 86.2 H, Lymph % (Auto) 9.8 L, [place] % (Auto) 3.1, Eos % (Auto) 0.0, Baso % (Auto) 0.3, Absolute Neuts (auto) 5.5, Absolute Lymphs (auto) 0.63 L, Nucleated RBC % 0, Atypical Lymphocytes 1+, Platelet Estimate A, Ovalocytes 1+, Sodium 130 L, Potassium 4.0, Chloride 94 L, Carbon Dioxide 28.0, Anion Gap 7, BUN 31 H, Creatinine 0.98, Estim Creat Clear Calc 139.74, Est GFR (MDRD) Af Amer 104, Est GFR (MDRD) Non-Af 86, BUN/Creatinine Ratio 31.7 H, Glucose 192 H, Calcium 8.6 Micro: Microbiology 07/23/24 18:15 Sputum, Expectorated/Coughed Gram Stain - Final 07/23/24 18:15 Sputum, Expectorated/Coughed Respiratory Culture - Final 07/23/24 12:23 Blood Culture (Wb) - Anticubital Left Blood Culture - Preliminary No growth in 48 hours. 07/23/24 12:30 Blood Culture (Wb) - Left Wrist Blood Culture - Preliminary No growth in 48 hours. 07/23/24 13:42 Urine, Clean Catch Urine Culture - Final Culture exhibits no growth. 07/23/24 12:37 Mucosa - Nose SARS-CoV-2, Influenza & RSV (PCR) - Final Influenzae A ABG Data ABG results: ABG 07/27/24 10:04 Specimen Type ART Sample Site L Radial pH 7.45 Bicarbonate Actual 27.4 H Total CO2 29 Base Excess 3 H O2 Saturation 94 L O2 % 88.0 ABG pCO2 39.5 ABG pO2 68 L Zac Test Positive O2 Delivery Device airvo Vent Mode Not entered Clinical Comments 60L 88% Radiography Diagnostic Testing: Radiology Impression Chest CTA 07/27/24 08:21 IMPRESSION: 1. No CT evidence of acute pulmonary embolism. 2. Bilateral pneumonia 3. Cardiomegaly One or more dose reduction techniques were used (e.g., Automated exposure control, adjustment of the mA and/or kV according to patient size, use of iterative reconstruction technique). [facility] Rhythm Strip Rhythm Strip: Sinus Rhythm Rate: 64 Ectopy: None Physical Exam Const alert and oriented x3 Constitutional Narrative: Class III obesity with BMI of 52.4. lethargic. General Appearance: cooperative HEENT normocephalic, head/scalp atraumatic, moist oral mucous membranes and oropharynx normal Eyes PERRL and EOMs intact bilaterally Neck no lymphadenopathy and supple Lymph Lymphatic: no lymphadenopathy noted and no lymphedema noted Resp Resp Narrative: Mildly diminished breath sounds bibasilarly. No crackles. Mild wheezing bilaterally.Lungs sound tight. Was on 6L this morning Now 15L. Cardio regular rate, regular rhythm, S1 normal heart sound, S2 normal heart sound and no murmurs GI normal to inspection, nondistended, normoactive bowel sounds, soft to palpation, non-tender and non-distended Extremity normal capillary refill, no clubbing, cyanosis or edema and no calf tenderness General Extremity: no tenderness to palpation of joints or extremities Skin Skin Narrative: sternotomy scar Neuro CN's II-XII intact bilaterally, no focal motor deficits and no sensory deficits noted Motor Exam: strength 5/5 throughout and general weakness Psych thought process normal, cooperative and affect normal Appearance: appropriate Assessment & Plan Assessment/Plan (1) Hypoxia: (2) Influenza A: PLAN: Plan #Hypoxia due to influenza A infection and acute exacerbation of asthma\ * respiratory status worsening. He was up to 6L this morning and went further up to 15L after he desaturated. * Now on PO prednisone as IV solumedrol was causing hyperglycemia * get urine for strep and legionella antigens * stat CTA chest done this morning showed bilateral pneumonia and cardiomegaly * 2D echo also ordered. * will start on IV vancomycin and cefepime due to the superimposed pneumonia * did not receive tamiflu as he was out of the window. * continue IV lasix. * consult pulmonology * switch to Airvo. Low threshold to transfer to ICU * titrate oxygen to maintain sats>90% * #Hypertension: Patient was hypotensive on admission so his BP meds were held. #Hyponatremia * sodium is up to 130 today. * Being diuresed with IV lasix. * continue diuresis and monitor to see improvement * * #JOON: On CPAP nightly #Type 2 diabetes mellitus with hyperglycemia * NPH increased from 55 to 65 units BID. * High dose ISS. Accuchecks ACHS> * #History of CAD s/p CABG: On aspirin. Also on statin. Metoprolol held due to hypotension #Paroxysmal A-fib: On Eliquis and metoprolol. #Hypokalemia: Resolved with replacement #Class III obesity: BMI is 52.4. Complicates acute care, expected recovery and prognosis. DVT prophylaxis: on eliquis Charges/Coding Visit Charges Inpatient E&M: 48428 Subs Hosp L3
[2024-07-27] MEDS: 0.9% Saline Lock 10 ML Syringe IV ×2 (11:57→17:12)
[2024-07-27] MEDS: Cefepime HCl 1 GM in 0.9% Normal Saline (50mL MB+) 50 ML IV ×2 (11:57→22:28)
[2024-07-27] MEDS: Vancomycin HCl 2,000 MG in 0.9% Normal Saline (500mL Bag) 500 ML 250 MG IV (11:57)
--- NOTE | 2024-07-27 12:13 | PCM.RX.CS ---
Consult Antibiotic Management Pharmacy has been consulted to manage selected antibiotic: Vancomycin Type of Intervention Type of Consult: New start Suspected Infection Suspected Infection: Pneumonia Labs Labs: Sodium 130 mmol/L (136-145) L 07/27/24 04:36 Potassium 4.0 mmol/L (3.5-5.1) 07/27/24 04:36 Chloride 94 mmol/L (98-107) L 07/27/24 04:36 Carbon Dioxide 28.0 mmol/L (21.0-32.0) 07/27/24 04:36 Anion Gap 7 (5-15) 07/27/24 04:36 BUN 31 mg/dL (7-18) H 07/27/24 04:36 Creatinine 0.98 mg/dL (0.70-1.30) 07/27/24 04:36 Est GFR (MDRD) Af Amer 104 mL/min (>60) 07/27/24 04:36 Est GFR (MDRD) Non-Af 86 mL/min (>60) 07/27/24 04:36 BUN/Creatinine Ratio 31.7 RATIO (10-20) H 07/27/24 04:36 Glucose 192 mg/dL (74-106) H 07/27/24 04:36 Microbiology Microbiology: Microbiology 07/23/24 18:15 Sputum, Expectorated/Coughed Gram Stain - Final 07/23/24 18:15 Sputum, Expectorated/Coughed Respiratory Culture - Final 07/23/24 12:23 Blood Culture (Wb) - Anticubital Left Blood Culture - Preliminary No growth in 48 hours. 07/23/24 12:30 Blood Culture (Wb) - Left Wrist Blood Culture - Preliminary No growth in 48 hours. 07/23/24 13:42 Urine, Clean Catch Urine Culture - Final Culture exhibits no growth. 07/23/24 12:37 Mucosa - Nose SARS-CoV-2, Influenza & RSV (PCR) - Final Influenzae A Dosing Weight Weight used for dosin.1 kg Estimated Creatinine Clearance Estimated Creatinine Clearance: >100ML/MIN Goal Trough Goal Trough: 15-20 mcg/mL Pharmacy Plan for Drug Dosing Pharmacy Plan for Drug Dosing: Give initial load of 2000mg IV x1, then 1250mg q8h. Will start one level down from the suggested 1500mg q8h since the patient is 49 years old so as to try to avoid high trough above goal range. Check a trough before the 4th total dose tomorrow. Pharmacy Service will continue to monitor and adjust dosing as required. Follow-Up Labs Follow-Up Labs: Trough: Vancomycin Date/Time Labs Ordered Labs to be done on [date and time ordered]: 07/28/24 11:30
[2024-07-27 13:50] LABS: Bedside Glucose 191 mg/dL (74-106)
[2024-07-27 14:24] LABS: Bedside Glucose 219 mg/dL (74-106)
--- NOTE | 2024-07-27 16:34 | PCMCONS.TICU ---
HPI Consult Data Date of Consult: 07/27/24 HPI Narrative Reason for Consultation: Hypoxemic respiratory failure HPI Narrative: ELSY LORENZO, is a 49 yoM former smoker quit in 2010, diagnosed with asthma ~5 years ago, on Breo Ellipta chronically p/w SOB. HAs been having fever and chills as well. CT this AM showing atypical multilobar PNA with dense GGO and NSIP pattern. He reports some sorness in his chest from cough, but otherwise denies wheezing. Had flu recently about 1 week ago as well. No hemoptysis, no weight loss or night sweats. NO recent travel outside country. No exotic pets at home. No mold exposure. Not on chronic steroid, but did have 5 d PO pulse of pred. No HIV [facility] Medical History Umbilical hernia Asthma Complications Diabetes HTN (hypertension) Home Medications ?Medication ?Instructions ?Recorded ?Last Taken ?Type multivitamin (Multiple Vitamins 1 ea PO DAILY 04/20/17 07/23/24 History tablet) hydralazine 50 mg tablet 50 mg PO TID 12/15/22 07/23/24 History acetaminophen 500 mg tablet 1,000 mg PO Q4H 07/23/24 07/23/24 History albuterol sulfate 90 mcg/actuation 2 puff inhalation Q4H PRN 07/23/24 Unknown History aerosol inhaler shortness of breath or wheezing apixaban 5 mg tablet (Eliquis) 5 mg PO BID 07/23/24 07/23/24 History aspirin 81 mg tablet,delayed 81 mg PO DAILY 07/23/24 07/23/24 History release (Adult Aspirin Regimen) atorvastatin 80 mg tablet 80 mg PO QHS 07/23/24 07/22/24 History brimonidine 0.2 % eye drops 1 drp ophthalmic (eye) BID 07/23/24 07/23/24 History brinzolamide 1 %-brimonidine 0.2 % 1 drp RIGHT EYE BID 07/23/24 Unknown History eye drops,suspension cyanocobalamin (vitamin B-12) 1,000 mcg PO DAILY 07/23/24 07/23/24 History 1,000 mcg capsule dorzolamide 2 % eye drops 1 drp ophthalmic (eye) BID 07/23/24 07/23/24 History fluticasone furoate 100 1 ea inhalation DAILY 07/23/24 07/23/24 History mcg-vilanterol 25 mcg/dose inhalation powder (Breo Ellipta) insulin NPH isoph U-100 human 100 55 unit subcut BID 07/23/24 07/23/24 History unit/mL subcutaneous suspension (Novolin N NPH U-100 Insulin isophane) insulin regular human 100 unit/mL 60 unit IM TID 07/23/24 07/23/24 History injection solution (Novolin R Regular U-100 Insulin) latanoprost 0.005 % eye drops 1 drp RIGHT EYE DAILY 07/23/24 Unknown History magnesium oxide 400 mg (241.3 mg 400 mg PO DAILY 07/23/24 07/23/24 History magnesium) tablet metoprolol succinate 50 mg 150 mg PO DAILY 07/23/24 07/23/24 History tablet,extended release 24 hr omeprazole 40 mg capsule,delayed 40 mg PO DAILY 07/23/24 07/23/24 History release ondansetron 4 mg disintegrating 4 mg PO Q8 PRN Nausea 07/23/24 Unknown History tablet spironolactone 25 mg tablet 25 mg PO DAILY 07/23/24 07/23/24 History timolol maleate 0.5 % eye drops 1 drp RIGHT EYE BID 07/23/24 07/23/24 History tirzepatide 5 mg/0.5 mL 5 mg subcut MO 07/23/24 07/15/24 History subcutaneous pen injector (Mounjoãoro) torsemide 20 mg tablet 40 mg PO BID 07/23/24 07/23/24 History vitamin D3 500 unit-folic acid 1 1 tab PO DAILY 07/23/24 07/23/24 History mg tablet (Roxifol-D) Allergy/AdvReac Type Severity Reaction Status Date / Time Penicillins (PCN) AdvReac ABDOMINAL Verified 07/23/24 11:54 PAIN, SEVERE DIARRHEA Surgical History History of hernia surgery History of ankle surgery History of open heart surgery Social History household members: spouse Smoking Status: Former smoker ROS ROS Narrative 10 or more systems reviewed with patient, and all are negative except as per HPI Objective Data Objective Data Vital Signs: Vital Signs Last response Temperature 37.1 C 07/27/24 12:00 Temperature Source Oral 07/27/24 12:00 Pulse Rate 79 07/27/24 12:00 Pulse Strength Weak (1+) 07/26/24 19:30 Respiratory Rate 15 07/27/24 12:00 Respiratory Effort Short of Breath 07/27/24 10:00 Respiratory Depth Normal 07/27/24 10:00 Respiratory Pattern Normal 07/27/24 11:25 Blood Pressure 118/69 07/27/24 12:00 Blood Pressure Mean 85 07/27/24 12:00 Blood Pressure Source Monitor 07/27/24 12:00 Blood Pressure Position Semi-Fowlers 07/27/24 12:00 Blood Pressure Location Right Forearm 07/27/24 12:00 Pulse Ox 92 07/27/24 15:37 Oxygen Delivery Method Airvo 07/27/24 12:57 Oxygen Flow Rate (L/min) 60 07/27/24 12:57 Fraction of Inspired Oxygen (FIO2) 85 07/27/24 12:57 I&O: I&O Last 24 Hours 07/26/24 07/27/24 07/27/24 23:59 11:59 23:59 Intake Total 1880 / 2240 1490 / 1490 Output Total 1950 / 4050 375 / 1425 1050 / 1425 Balance -70 / -1810 -375 / 65 440 / 65 I&O: Total Stay 07/23/24 11:40 thru 07/27/24 15:23 Intake Total 9536.67 Output Total 9650 Balance -113.33 Current Meds Ordered / Administered: Current meds ordered / Administered Generic Name Dose Route Start Last Admin Trade Name Freq PRN Reason Stop Dose Admin Acetaminophen 650 mg 07/23/24 16:16 07/27/24 09:33 Acetaminophen 325 Mg Tablet PO 650 mg Q6H PRN PRN Administration Pain 1-10 Or Fever >100.7 Albuterol Sulfate 2.5 mg 07/23/24 16:16 Albuterol 2.5 Mg/3 Ml Vial.Neb. INHALATION Q2H PRN PRN SOB &/OR WHEEZING Albuterol/Ipratropium 3 ml 07/23/24 16:16 07/27/24 11:25 Ipratropium/Albuterol Sulfate 3 Ml Ampul.Neb INHALATION 3 ml Q4H.RT JUNIOR Administration Apixaban 5 mg 07/23/24 22:00 07/27/24 09:35 Apixaban 5 Mg Tablet PO 5 mg BID JUNIOR Administration Aspirin 81 mg 07/24/24 08:00 07/27/24 09:35 Aspirin E.C. 81 Mg Tablet PO 81 mg BREAKFAST JUNIOR Administration Atorvastatin Calcium 80 mg 07/23/24 22:00 07/26/24 21:02 Atorvastatin Calcium 80 Mg Tablet PO 80 mg QHS JUNIOR Administration Benzonatate 100 mg 07/23/24 16:16 07/27/24 09:35 Benzonatate 100 Mg Capsule PO 100 mg 4X/DAY PRN PRN Administration COUGH Brimonidine Tartrate 1 drp 07/23/24 22:00 07/27/24 09:36 Brimonidine 0.2% 5ml Bottle OPHTHALMIC 1 drp BID JUNIOR Administration Furosemide 40 mg 07/25/24 10:00 07/27/24 09:37 Furosemide 40 Mg/4 Ml Vial IV 40 mg BIDLX JUNIOR Administration Protocol Glucagon 1 mg 07/23/24 16:16 Glucagon 1 Mg/Ml Syringe IM X1 PRN HYPOGLYCEMIA Protocol Guaifenesin 1,200 mg 07/23/24 22:00 07/27/24 09:37 Guaifenesin 1,200 Mg Tablet PO Not Given BID [facility] Dextrose 250 mls @ 0 mls/hr 07/23/24 16:16 Dextrose 10%-Water IV .Q0M PRN HYPOGLYCEMIA Protocol As Directed Cefepime HCl 1 gm/ Sodium 50 mls @ 100 mls/hr 07/27/24 10:15 07/27/24 13:39 Chloride IV Infused Q8 JUNIOR Infusion Vancomycin IV-PHARMACY TO DOSE 500 mls @ 250 mls/hr 07/27/24 09:40 1 each/ Sodium Chloride IV X1 PRN Rx to Dose Protocol Vancomycin HCl 1,250 mg/ 275 mls @ 167 mls/hr 07/27/24 20:00 Sodium Chloride IV Q8H [facility] Insulin Human Lispro 0 unit 07/23/24 16:16 07/27/24 13:37 Insulin Lispro 100 Unit/Ml Insuln.Pen SC 2 u ACHS JUNIOR Administration Protocol Insulin Human Lispro 40 unit 07/23/24 17:00 07/27/24 13:37 Insulin Lispro 100 Unit/Ml Insuln.Pen SC 40 u 0800,1200,1700 JUNIOR Administration Insulin Human NPH 65 units 07/26/24 22:00 07/27/24 09:51 Insulin Nph Human 100 Units/Ml Pen SC Not Given BID JUNIOR Latanoprost 1 drp 07/24/24 10:00 07/27/24 09:38 Latanoprost 0.005% 1 Bottle RIGHT EYE 1 drp DAILY JUNIOR Administration Melatonin 3 mg 07/23/24 16:16 Melatonin 3 Mg Tablet PO QHS PRN PRN INSOMNIA Ondansetron HCl 4 mg 07/23/24 16:16 Ondansetron 4 Mg/2 Ml Vial IV Q8H PRN PRN NAUSEA/VOMITING Oxycodone HCl 5 mg 07/23/24 16:16 07/27/24 09:35 Oxycodone 5 Mg Tablet PO 5 mg Q4H PRN PRN Administration Pain Score 4-10 Pantoprazole Sodium 40 mg 07/24/24 10:00 07/27/24 09:35 Pantoprazole Sodium 40 Mg Tablet PO 40 mg DAILY JUNIOR Administration Prednisone 40 mg 07/27/24 08:00 07/27/24 09:35 Prednisone 20 Mg Tablet PO 08/01/24 08:01 40 mg BREAKFAST JUNIOR Administration Prochlorperazine Edisylate 5 mg 07/23/24 16:16 Prochlorperazine 10 Mg/2 Ml Vial IV Q4H PRN PRN Breakthrough Nausea/Vomiting Senna/Docusate Sodium 2 tablet 07/23/24 16:16 Senna/Docusate Sodium 1 Tablet PO BID PRN PRN Constipation Sodium Chloride 10 - 40 ml 07/23/24 16:26 07/27/24 11:57 0.9% Saline Lock 10 Ml Syringe IV 10 ml UD PRN Administration SALINE FLUSH Throat Lozenges 1 lozenge 07/23/24 16:16 07/27/24 05:27 Benzocaine/Menthol 1 Lozenge MUCOUS MEM 1 lozenge Q2H PRN PRN Administration SORE THROAT Timolol Maleate 1 drp 07/23/24 22:00 07/27/24 09:37 Timolol 0.5% 5ml Opth.Btl RIGHT EYE 1 drp BID JUNIOR Administration Vancomycin Protocol 1 lab 07/28/24 09:30 Vancomycin Trough/Random Due MC 07/28/24 13:30 DAILY [facility] Physical Exam Const alert and oriented x3 General Appearance: cooperative and ill appearing HEENT normocephalic Eyes PERRL and EOMs intact bilaterally Neck full ROM and no JVD Lymph Lymphatic: no lymphadenopathy noted Chest inspection of chest normal Resp normal respiratory effort and no use of accessory muscles Effort and Inspection: able to speak in complete sentences and tachypneic Auscultation: rhonchi and diminished lung sounds Cardio regular rate, no rub, no gallops and no JVD GI normal to inspection, nondistended, normoactive bowel sounds no CVA tenderness Extremity no clubbing, cyanosis or edema Skin no rashes or lesions noted Neuro oriented x3, CN's II-XII intact bilaterally, moves all extremities and no focal motor deficits Psych cooperative and affect normal Lab / Micro Data 07/27/24 04:36 07/27/24 04:36 Labs: Laboratory Results - last 24 hr 07/26/24 17:19: POC Glucose 173 H 07/26/24 20:59: POC Glucose 105 07/27/24 04:36: WBC 6.4, RBC 4.38 L, Hgb 10.6 L, Hct 32.7 L, MCV 74.7 L, MCH 24.2 L, MCHC 32.4, RDW Std Deviation 45.9 H, RDW Coeff of Osorio 17.1 H, Plt Count 155, MPV 10.3, Immature Gran % (Auto) 0.600, Neut % (Auto) 86.2 H, Lymph % (Auto) 9.8 L, [place] % (Auto) 3.1, Eos % (Auto) 0.0, Baso % (Auto) 0.3, Absolute Neuts (auto) 5.5, Absolute Lymphs (auto) 0.63 L, Nucleated RBC % 0, Atypical Lymphocytes 1+, Platelet Estimate A, Ovalocytes 1+, Sodium 130 L, Potassium 4.0, Chloride 94 L, Carbon Dioxide 28.0, Anion Gap 7, BUN 31 H, Creatinine 0.98, Estim Creat Clear Calc 139.74, Est GFR (MDRD) Af Amer 104, Est GFR (MDRD) Non-Af 86, BUN/Creatinine Ratio 31.7 H, Glucose 192 H, Calcium 8.6 07/27/24 09:17: POC Glucose 219 H 07/27/24 12:05: POC Glucose 191 H Micro: Microbiology 07/27/24 09:57 Mucosa - Nasopharyngeal Respiratory Panel (PCR) - Final Influenza A (Subtype H1) ABG Data ABG results: ABG 07/27/24 10:04 Specimen Type ART Sample Site L Radial pH 7.45 Bicarbonate Actual 27.4 H Total CO2 29 Base Excess 3 H O2 Saturation 94 L O2 % 88.0 ABG pCO2 39.5 ABG pO2 68 L Zac Test Positive O2 Delivery Device airvo Vent Mode Not entered Clinical Comments 60L 88% Rhythm Strip Rhythm Strip: Sinus Rhythm Rate: 64 Ectopy: None Imaging Radiology Impression Chest CTA 07/27/24 08:21 IMPRESSION: 1. No CT evidence of acute pulmonary embolism. 2. Bilateral pneumonia 3. Cardiomegaly One or more dose reduction techniques were used (e.g., Automated exposure control, adjustment of the mA and/or kV according to patient size, use of iterative reconstruction technique). Reading [facility] Echocardiogram 07/27/24 08:36 Interpretation Summary Limited TTE/TDS Overall normal LV systolic function Definty /contrast usedfor better delination of Endocardial border. Similar to previous studt Ordering Physician: Jocelyn Cespedes Performed By: Yunier Owen RCS Personal interp: very atypical appearing diffuse multilobar GGOs c/w atypical infection Assessment and Plan . Assessment and plan: Problem List: Acute hypoxemic Respiratory failure Multilobar PNA vs NSIP ILD Alveolar hypoventilation and morbid obesity High risk fo JOON Atelectasis Asthma vs Churgg Marilyn? AEP? Plan: Recommend bronchoscopic evaluation with lavage of the affected areas on CT Risk factors for PJP low, can defer TMP-SMX However, cefepime a good option (+) azithromycin for atypical coverage Urine legionella testing Gold quantiferon or equivalent MTB r/o NPO monday night for bronch Monday Anselmo Jacques MD [facility] The entirety of this encounter was done via Telemedicine
[2024-07-27 19:29] LABS: Bedside Glucose 120 mg/dL (74-106)
[2024-07-27] MEDS: Vancomycin HCl 1,250 MG in 0.9% Normal Saline (250mL Bag) 250 ML 167 MG IV (20:35)
[2024-07-27] MEDS: Atorvastatin Calcium 80 MG Tablet PO (20:39)
[2024-07-27] MEDS: guaiFENesin 1,200 MG Tablet 1200 MG PO (20:40)
[2024-07-27 23:27] LABS: Bedside Glucose 112 mg/dL (74-106)
[2024-07-28] VITALS (20 sets, daily range): BP systolic 107–146; BP diastolic 60–76; PULSE 69–84; RESP 12–24; TEMP 36.8–37.8; O2SAT 85–95; BMI 51.7
--- NOTE | 2024-07-28 01:47 | PCM.HOSP.N ---
Hospitalist Note Patient with worsening pulmonary status, not keeping appropriate oxygenation despite increasing supplementation and alteration of regimen. Pulmonary already following and had plan for bronchoscopy on Monday. At this point per discussion with respiratory therapy will transfer to the ICU in preparation for likely intubation needs.
--- NOTE | 2024-07-28 02:00 | NURSING ---
Upon shift change on PCU, it was stated that the patient respiratory status had changed rapidly overnight and into day shift. Was reported to be on 6L HF at the beginning of the day and had progressed to Airvo 50L/FiO2 88%. Oxygenation via continuous pulse oximeter was unable to progress higher than 90% on those settings at start of shift. Patient was scheduled for Bronchoscopy on Saturday 07/29. RT Jett discussed with this RN that patient had little noninvasive respiratory options other than Bipap if oxygen sats were unable to maintain above 90%. RN agreed and discussed with Patient at 07/27/24 2000 hours findings of physical assessment as well as potential/possible course of events to start with Bipap initiation if oxygen sats were to drop. Patient verbalized understanding. Patient was having copious secretions from nose and mouth, sometimes requiring him to blow his nose; removing the airvo from up to a minute at a time with sats dropping down to low 80s and would require 5-10 minutes for measured Oxygen levels to return to baseline level of between 88-90%. Around 2330 RT discussed patient condition with Dr. Montiel and decision was made to attempt Bipap with AVAPS to see if improvement to work of breathing and oxygenation was possible. By 07/28 0100 hours, oxygenation had not exceeded 90% on AVAPS. Patient was transferred up to the ICU for intubation. Intubation completed at 0240 hours on 07/28/24.
[2024-07-28] MEDS: Midazolam 2 MG/2 ML Syringe 4 MG IV (02:43)
[2024-07-28] MEDS: Etomidate 20 MG/10 ML Vial IV (02:44)
[2024-07-28] MEDS: Succinylcholine Chloride 200 MG/10 ML SYRINGE 100 MG IV (02:45)
[2024-07-28] MEDS: 0.9% Saline Lock 10 ML Syringe IV ×4 (02:55→10:27)
--- NOTE | 2024-07-28 02:55 | PCM.HOSP.N ---
Hospitalist Note Intubation Note: Patient with evidence of respiratory and/or impending distress. Medications administered: 20 mg of etomidate, 4 mg of Versed. ETT size: 8 in order to perform upcoming bronchoscopy. Patient intubated in standard fashion with glide scope with visualization of the vocal cords and passage of the ETT. Positioning verified with auscultation. Post-intubation CXR requested. 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 Procedures Hospitalists Procedures: [id number] Insert Emergency Airway
[2024-07-28] MEDS: fentaNYL drip 100 ML 5 MCG CONT INF (03:04)
[2024-07-28] MEDS: Propofol 10MG/Ml 1,000 MG/100 ML Bottle 9.8 MG CONT INF (03:04)
--- NOTE | 2024-07-28 03:20 | RAD_ITS ---
PROCEDURE: CHEST 1 VIEW (PORTABLE) REASON FOR EXAM: Confirm ETT placement TECHNIQUE: Frontal and lateral views of the chest. COMPARISON: 07/23/2024 FINDINGS: Endotracheal tube measures 4.9 cm above the joana. Gastric tube side-port traverses the GE junction Heart size is moderately enlarged. The mediastinal contour is unremarkable. Pulmonary vasculature is congested. Patchy opacities noted bilaterally. Blunting of the bilateral costophrenic angles, [id number] The bones are unremarkable. RAD/Chest 1 View (Portable) IMPRESSION: 1. Cardiomegaly with moderate pulmonary vascular congestion and edema. Superi mposed infection not excluded 2. Mild bilateral pleural effusions, [id number] Reading Location: [facility]
[2024-07-28] MEDS: Ipratropium/Albuterol Sulfate 3 ML AMPUL.NEB INHALATION ×3 (03:34→10:38)
[2024-07-28 04:02] LABS: Allen Test Positive; Base Excess 4 mmol/L (-2 to +2); Bicarbonate 29.4 mmol/L (22-26); Blood Gas Specimen Type ART; Mode AC; O2 Delivery Device Adult Vent; PEEP 10; PO2 66 mmHG (75-100); RR 14; SITE R Radial; SO2 92 % (95-99); Total Carbon Dioxide 31 mmol/L; pCO2 50.5 mmHg (35-45); pH 7.37 (7.35-7.45)
[2024-07-28] MEDS: Vancomycin HCl 1,250 MG in 0.9% Normal Saline (250mL Bag) 250 ML 167 MG IV ×2 (05:04→12:31)
[2024-07-28] MEDS: Propofol 10MG/Ml 1,000 MG/100 ML Bottle 19.6 MG CONT INF (06:13)
[2024-07-28] MEDS: Cefepime HCl 1 GM in 0.9% Normal Saline (50mL MB+) 50 ML IV (06:46)
[2024-07-28] MEDS: fentaNYL drip 100 ML 20 MCG CONT INF ×2 (08:00→13:19)
[2024-07-28 08:08] LABS: Absolute Lymphocyte Count 0.75 X10^3/uL (0.83-4.51); Absolute Neutrophil Count 4.6 X10^3/uL (2.0-7.7); Basophil# 0.01 X10^3/uL; Basophil% 0.2 % (0-1); Hematocrit 30.5 % (40-54); Hemoglobin 9.4 g/dL (13.0-16.5); Lymphocyte # 0.75 X10^3/ul (0.83-4.51); Lymphocyte % 12.9 % (19-41); Mean Corp Hgb Conc 30.8 g/dL (32-36); Mean Corpuscular Hgb 23.5 pg (27.0-32.0); Mean Corpuscular Volume 76.3 fL (80-94); Mean Platelet Vol. 9.9 fl (6.2-12.0); Monocyte# 0.36 X10^3/uL; Monocyte% 6.2 % (0-10); NRBC Flagged by Analyzer 0 % (0-5); Neutrophil # 4.62 X10^3/uL (2.7-7.7); Neutrophil % 79.2 % (47-70); Platelet Count 180 K/mm3 (150-450); RBC Distribution Width CV 17.2 % (11.6-14.6); RBC Distribution Width SD 47.9 fl (35.1-43.9); White Blood Count 5.8 K/mm3 (4.4-11.0)
[2024-07-28 08:13] LABS: Bedside Glucose 186 mg/dL (74-106)
[2024-07-28 08:16] LABS: Anion Gap 7 (5-15); BUN 28 mg/dL (7-18); BUN/Creat Ratio 27.7 RATIO (10-20); Chloride 97 mmol/L (98-107); Creatinine, Serum 1.01 mg/dL (0.70-1.30); EST Glomerular Filtration Rate 83 mL/min (>60); Est Glom Filt Rate - Afr Amer 100 mL/min (>60); Estimated Creatinine Clearance 135.25 ml/min; Glucose 187 mg/dL (74-106); Sodium Level 133 mmol/L (136-145)
[2024-07-28 08:23] LABS: CPK Total, Creatine Kinase 401 U/L (39-308); Triglycerides 153 mg/dL
[2024-07-28] MEDS: Rocuronium Bromide 50 MG/5 ML Vial 70 MG IV (09:48)
--- NOTE | 2024-07-28 09:50 | PN.CC_ITS ---
Objective Data Objective Data Vital Signs: Vital Signs Last response 3 Temperature 37.6 C H 07/28/24 07:00 Temperature Source Core 07/28/24 07:00 Pulse Rate 74 07/28/24 08:00 Pulse Strength Weak (1+) 07/27/24 22:00 Respiratory Rate 16 07/28/24 07:06 Respiratory Effort Normal, Non-Labored 07/27/24 22:00 Respiratory Depth Normal 07/27/24 22:00 Respiratory Pattern Normal 07/28/24 07:06 Blood Pressure 110/67 07/28/24 07:00 Blood Pressure Mean 81 07/28/24 07:00 Blood Pressure Source Monitor 07/28/24 07:00 Blood Pressure Position Semi-Fowlers 07/28/24 07:00 Blood Pressure Location Right Forearm 07/28/24 07:00 Pulse Ox 93 07/28/24 07:06 Oxygen Delivery Method Mechanical Ventilator 07/28/24 07:00 Oxygen Flow Rate (L/min) 60 07/27/24 22:00 Fraction of Inspired Oxygen (FIO2) 100 07/28/24 07:06 I&O: I&O Last 24 Hours 3 07/27/24 07/27/24 07/28/24 11:59 23:59 11:59 Intake Total 2415 / 2775 877.79 / 877.79 Output Total 375 / 2925 2150 / 2925 1100 / 1100 Balance -375 / -150 265 / -150 -222.21 / -222.21 I&O: Total Stay 3 07/23/24 11:40 thru 07/28/24 08:41 Intake Total 36204.46 Output Total 53255 Balance -510.54 Current Meds Ordered / Administered: Current meds ordered / Administered 3 Generic Name Dose Route Start Last Admin Trade Name Freq PRN Reason Stop Dose Admin Acetaminophen 650 mg 07/28/24 09:10 Acetaminophen 325 Mg Tablet GT Q6H PRN PRN Pain 1-10 Or Fever >100.7 Albuterol Sulfate 2.5 mg 07/23/24 16:16 Albuterol 2.5 Mg/3 Ml Vial.Neb. INHALATION Q2H PRN PRN SOB &/OR WHEEZING Albuterol/Ipratropium 3 ml 07/23/24 16:16 07/28/24 07:06 Ipratropium/Albuterol Sulfate 3 Ml Ampul.Neb INHALATION 3 ml Q4H.RT JUNIOR Administration Apixaban 5 mg 07/28/24 10:00 Apixaban 5 Mg Tablet GT BID JUNIOR Aspirin 81 mg 07/29/24 08:00 Aspirin 81 Mg Tab.Chew GT BREAKFAST JUNIOR Atorvastatin Calcium 80 mg 07/28/24 22:00 Atorvastatin Calcium 80 Mg Tablet GT QHS JUNIOR Brimonidine Tartrate 1 drp 07/23/24 22:00 07/27/24 20:41 Brimonidine 0.2% 5ml Bottle OPHTHALMIC 1 drp BID JUNIOR Administration Chlorhexidine Gluconate 15 ml 07/28/24 10:00 Chlorhexidine 15 Ml PO BID JUNIOR Furosemide 40 mg 07/25/24 10:00 07/27/24 17:12 Furosemide 40 Mg/4 Ml Vial IV 40 mg BIDLX JUNIOR Administration Protocol Glucagon 1 mg 07/23/24 16:16 Glucagon 1 Mg/Ml Syringe IM X1 PRN HYPOGLYCEMIA Protocol Dextrose 250 mls @ 0 mls/hr 07/23/24 16:16 Dextrose 10%-Water IV .Q0M PRN HYPOGLYCEMIA Protocol As Directed Cefepime HCl 1 gm/ Sodium 50 mls @ 100 mls/hr 07/27/24 10:15 07/28/24 07:48 Chloride IV Infused Q8 JUNIOR Infusion Vancomycin IV-PHARMACY TO DOSE 500 mls @ 250 mls/hr 07/27/24 09:40 1 each/ Sodium Chloride IV X1 PRN Rx to Dose Protocol Vancomycin HCl 1,250 mg/ 275 mls @ 167 mls/hr 07/27/24 20:00 07/28/24 06:47 Sodium Chloride IV Infused Q8H JUNIOR Infusion Propofol 1,000 mg in 100 mls @ 9.786 mls/hr 07/28/24 02:33 07/28/24 07:00 Diprivan CONT INF 20 mcg/kg/min .[id number] JUNIOR 19.6 mls/hr Titration Protocol 10 MCG/KG/MIN Fentanyl 100 mls @ 5 mls/hr 07/28/24 02:33 07/28/24 08:00 CONT INF 200 mcg/hr UD JUNIOR 20 mls/hr Administration Protocol 50 MCG/HR Pantoprazole Sodium 40 mg/ 110 mls @ 330 mls/hr 07/28/24 10:00 Sodium Chloride IV Q24 JUNIOR Meropenem 500 mg/ Sodium 60 mls @ 100 mls/hr 07/28/24 09:45 Chloride IV Q8 [facility] Insulin Human Lispro 40 unit 07/23/24 17:00 07/28/24 07:48 Insulin Lispro 100 Unit/Ml Insuln.Pen SC Not Given 0800,1200,1700 [facility] Insulin Human Lispro 0 unit 07/28/24 12:00 Insulin Lispro 100 Unit/Ml Insuln.Pen SC Q6 [facility] Protocol Insulin Human NPH 65 units 07/26/24 22:00 07/27/24 20:50 Insulin Nph Human 100 Units/Ml Pen SC Not Given BID JUNIOR Latanoprost 1 drp 07/24/24 10:00 07/27/24 09:38 Latanoprost 0.005% 1 Bottle RIGHT EYE 1 drp DAILY JUNIOR Administration Melatonin 3 mg 07/28/24 09:08 Melatonin 3 Mg Tablet GT QHS PRN PRN INSOMNIA Methylprednisolone 80 mg 07/28/24 09:45 Methylprednisolone 125 Mg/2 Ml Vial IV Q8 JUNIOR Ondansetron HCl 4 mg 07/23/24 16:16 Ondansetron 4 Mg/2 Ml Vial IV Q8H PRN PRN NAUSEA/VOMITING Oxycodone HCl 5 mg 07/28/24 09:08 Oxycodone 5 Mg Tablet GT Q4H PRN PRN Pain Score 4-10 Prochlorperazine Edisylate 5 mg 07/23/24 16:16 Prochlorperazine 10 Mg/2 Ml Vial IV Q4H PRN PRN Breakthrough Nausea/Vomiting Senna/Docusate Sodium 2 tablet 07/28/24 09:09 Senna/Docusate Sodium 1 Tablet GT BID PRN PRN Constipation Sodium Chloride 10 - 40 ml 07/23/24 16:26 07/28/24 08:12 0.9% Saline Lock 10 Ml Syringe IV 40 ml UD PRN Administration SALINE FLUSH Sodium Chloride 5 ml 07/28/24 02:33 Sodium Cl For Inhalation 15 Ml Vial.Neb. INHALATION Q5M PRN Suctioning Timolol Maleate 1 drp 07/23/24 22:00 07/27/24 20:42 Timolol 0.5% 5ml Opth.Btl RIGHT EYE 1 drp BID JUNIOR Administration Vancomycin Protocol 1 lab 07/28/24 09:30 07/28/24 09:35 Vancomycin Trough/Random Due MC 07/28/24 13:30 Not Given DAILY [facility] Lab / Micro Data 07/28/24 07:55 07/28/24 07:55 Labs: Laboratory Results - last 24 hr 07/27/24 09:17: POC Glucose 219 H 07/27/24 12:05: POC Glucose 191 H 07/27/24 17:14: POC Glucose 120 H 07/27/24 20:48: POC Glucose 112 H 07/28/24 07:55: WBC 5.8, RBC 4.00 L, Hgb 9.4 L, Hct 30.5 L, MCV 76.3 L, MCH 23.5 L, MCHC 30.8 L, RDW Std Deviation 47.9 H, RDW Coeff of Osorio 17.2 H, Plt Count 180, MPV 9.9, Immature Gran % (Auto) 1.500 H, Neut % (Auto) 79.2 H, Lymph % (Auto) 12.9 L, [place] % (Auto) 6.2, Eos % (Auto) 0.0, Baso % (Auto) 0.2, Absolute Neuts (auto) 4.6, Absolute Lymphs (auto) 0.75 L, Nucleated RBC % 0, Sodium 133 L , Potassium 4.0, Chloride 97 L, Carbon Dioxide 29.0, Anion Gap 7, BUN 28 H, Creatinine 1.01, Estim Creat Clear Calc 135.25, Est GFR (MDRD) Af Amer 100, Est GFR (MDRD) Non-Af 83, BUN/Creatinine Ratio 27.7 H, Glucose 187 H, Calcium 8.0 L, Total Creatine Kinase 401 H, Triglycerides 153, POC Glucose 186 H Micro: Microbiology 07/27/24 09:57 Mucosa - Nasopharyngeal Respiratory Panel (PCR) - Final Influenza A (Subtype H1) ABG Data ABG results: ABG 07/27/24 07/28/24 10:04 03:58 Specimen Type ART ART Sample Site L Radial R Radial pH 7.45 7.37 Bicarbonate Actual 27.4 H 29.4 H Total CO2 29 31 Base Excess 3 H 4 H O2 Saturation 94 L 92 L O2 % 88.0 100.0 ABG pCO2 39.5 50.5 H ABG pO2 68 L 66 L Zac Test Positive Positive Respiration Rate 14 O2 Delivery Device airvo Adult Vent Vent Mode Not entered AC Tidal Volume 500.0 POC PEEP 10 Clinical Comments 60L 88% Rhythm Strip Rhythm Strip: Sinus Rhythm Rate: 64 Ectopy: None Imaging Radiology Impression Chest CTA 07/27/24 08:21 IMPRESSION: 1. No CT evidence of acute pulmonary embolism. 2. Bilateral pneumonia 3. Cardiomegaly One or more dose reduction techniques were used (e.g., Automated exposure control, adjustment of the mA and/or kV according to patient size, use of iterative reconstruction technique). Reading Location: [facility] Echocardiogram 07/27/24 08:36 Interpretation Summary Limited TTE/TDS Overall normal LV systolic function Definty /contrast usedfor better delination of Endocardial border. Similar to previous studt Ordering Physician: Jocelyn Cespedes Performed By: Yunier Owen RCS Chest X-Ray 07/28/24 03:20 IMPRESSION: 1. Cardiomegaly with moderate pulmonary vascular congestion and edema. Superimposed infection not excluded 2. Mild bilateral pleural effusions, [id number]-left Reading Location: [facility] Assessment and Plan . Assessment and plan: Problem List: Acute hypoxemic Respiratory failure Multilobar PNA vs NSIP ILD ARDS Alveolar hypoventilation and morbid obesity High risk fo JOON Atelectasis Asthma vs Churgg Marilyn? AEP? Plan: Initiate transfer for: bronchoscopy CHERRI and ECMO capability 1mg/kg rocuronium IV x1 BIS monitoring escalate cefepime to meropenem add antifungal add GPC coverage with vanc change PO pred to IV methylpred 80 q8h pulse Anselmo Jacques MD [facility] Access Tele[facility] The entirety of this encounter was done via Telemedicine Critical Care Time: 55 min The entirety of this encounter was done via Telemedicine Physical Exam Const alert and oriented x3 General Appearance: cooperative and ill appearing HEENT normocephalic Eyes PERRL and EOMs intact bilaterally Neck full ROM and no JVD Lymph Lymphatic: no lymphadenopathy noted Chest inspection of chest normal Resp normal respiratory effort and no use of accessory muscles Effort and Inspection: able to speak in complete sentences and tachypneic Auscultation: rhonchi and diminished lung sounds Cardio regular rate, no rub, no gallops and no JVD GI normal to inspection, nondistended, normoactive bowel sounds no CVA tenderness Extremity no clubbing, cyanosis or edema Skin no rashes or lesions noted Neuro oriented x3, CN's II-XII intact bilaterally, moves all extremities and no focal motor deficits Psych cooperative and affect normal Subjective Subjective CC: intubated Brief HPI review: 49yoM with multilobar PNA and hypoxemic respiratory failure 07/26 - on Airvo 07/27 - intubated overnight; SpO2 85% this AM on 100%FIO2; d/w at bedside: ARDS interventions include paralytic, proning and possible need for VV-ECMO for which he may need transfer; she is in agreement
[2024-07-28] MEDS: MethylPREDNISolone 125 MG/2 ML Vial 80 MG IV (09:56)
[2024-07-28] MEDS: BRIMONIDINE 0.2% 5ML BOTTLE 1 DRP OPHTHALMIC (09:57)
[2024-07-28] MEDS: Chlorhexidine 15 ML PO (09:57)
[2024-07-28] MEDS: Pantoprazole Sodium 40 MG in 0.9% Normal Saline (100mL MB+) 100 ML 330 MG IV (10:00)
[2024-07-28] MEDS: Timolol 0.5% 5ML OPTH.BTL 1 DRP RIGHT EYE (10:06)
[2024-07-28] MEDS: Meropenem 500 MG in 0.9% Normal Saline (50mL MB+) 50 ML 100 MG IV (10:14)
--- NOTE | 2024-07-28 10:16 | PN_ITS ---
Subjective Subjective Patient seen and examined. He deteriorated rapidly overnight at 1:47am, not maintaing appropriate oxygenation on high flow oxygen. He was transferred to ICU and emergently intubated. [facility] Technician had been consulted yesterday and they did see him and recommended a bronch for Monday. He remains intubated this morning. He was saturating in the 80s on 100% oxygen and PEEP of 12. Unable to do review of systems as patient is intubated and sedated. Objective Data Objective Data Vital Signs: Vital Signs Temp Pulse Resp BP Pulse Ox O2 Del Method O2 Flow Rate 99.7 F H 80 21 H 110/67 87 Mechanical Ventilator 60 07/28/24 07:00 07/28/24 09:31 07/28/24 09:31 07/28/24 07:00 07/28/24 09:31 07/28/24 07:00 07/27/24 22:00 FiO2 100 07/28/24 09:31 Oxygen Flow Rate (L/min) 60 Oxygen Delivery Method Mechanical Ventilator Weight: 360 lb 14.347 oz Body Mass Index (BMI) 51.7 Intake & Output: Intake and Output for Last 24 Hours 07/26/24 07/27/24 07/28/24 23:59 23:59 23:59 Intake Total 2240 / 2240 2415 / 2775 877.79 / 877.79 Output Total 4050 / 4050 2525 / 2925 1100 / 1100 Balance -1810 / -1810 -110 / -150 -222.21 / -222.21 Lab / Micro Data 07/28/24 07:55 07/28/24 07:55 Labs: Laboratory Results - last 24 hr 07/27/24 09:17: POC Glucose 219 H 07/27/24 12:05: POC Glucose 191 H 07/27/24 17:14: POC Glucose 120 H 07/27/24 20:48: POC Glucose 112 H 07/28/24 07:55: WBC 5.8, RBC 4.00 L, Hgb 9.4 L, Hct 30.5 L, MCV 76.3 L, MCH 23.5 L, MCHC 30.8 L, RDW Std Deviation 47.9 H, RDW Coeff of Osorio 17.2 H, Plt Count 180, MPV 9.9, Immature Gran % (Auto) 1.500 H, Neut % (Auto) 79.2 H, Lymph % (Auto) 12.9 L, Dixie % (Auto) 6.2, Eos % (Auto) 0.0, Baso % (Auto) 0.2, Absolute Neuts (auto) 4.6, Absolute Lymphs (auto) 0.75 L, Nucleated RBC % 0, Sodium 133 L , Potassium 4.0, Chloride 97 L, Carbon Dioxide 29.0, Anion Gap 7, BUN 28 H, Creatinine 1.01, Estim Creat Clear Calc 135.25, Est GFR (MDRD) Af Amer 100, Est GFR (MDRD) Non-Af 83, BUN/Creatinine Ratio 27.7 H, Glucose 187 H, Calcium 8.0 L, Total Creatine Kinase 401 H, Triglycerides 153, POC Glucose 186 H Micro: Microbiology 07/27/24 09:57 Mucosa - Nasopharyngeal Respiratory Panel (PCR) - Final Influenza A (Subtype H1) 07/23/24 18:15 Sputum, Expectorated/Coughed Gram Stain - Final 07/23/24 18:15 Sputum, Expectorated/Coughed Respiratory Culture - Final 07/23/24 12:23 Blood Culture (Wb) - Anticubital Left Blood Culture - Preliminary No growth in 48 hours. 07/23/24 12:30 Blood Culture (Wb) - Left Wrist Blood Culture - Preliminary No growth in 48 hours. 07/23/24 13:42 Urine, Clean Catch Urine Culture - Final Culture exhibits no growth. 07/23/24 12:37 Mucosa - Nose SARS-CoV-2, Influenza & RSV (PCR) - Final Influenzae A ABG Data ABG results: ABG 07/28/24 03:58 Specimen Type ART Sample Site R Radial pH 7.37 Bicarbonate Actual 29.4 H Total CO2 31 Base Excess 4 H O2 Saturation 92 L O2 % 100.0 ABG pCO2 50.5 H ABG pO2 66 L Zac Test Positive Respiration Rate 14 O2 Delivery Device Adult Vent Vent Mode AC Tidal Volume 500.0 POC PEEP 10 Radiography Diagnostic Testing: Radiology Impression Chest CTA 07/27/24 08:21 IMPRESSION: 1. No CT evidence of acute pulmonary embolism. 2. Bilateral pneumonia 3. Cardiomegaly One or more dose reduction techniques were used (e.g., Automated exposure control, adjustment of the mA and/or kV according to patient size, use of iterative reconstruction technique). Reading Location: [facility] Echocardiogram 07/27/24 08:36 Interpretation Summary Limited TTE/TDS Overall normal LV systolic function Definty /contrast usedfor better delination of Endocardial border. Similar to previous studt Ordering Physician: Jocelyn Cespedes Performed By: Yunier Owen RCS Chest X-Ray 07/28/24 03:20 IMPRESSION: 1. Cardiomegaly with moderate pulmonary vascular congestion and edema. Superimposed infection not excluded 2. Mild bilateral pleural effusions, [id number]-left Reading Location: [facility] Rhythm Strip Rhythm Strip: Sinus Rhythm Rate: 64 Ectopy: None Physical Exam Const alert Constitutional Narrative: Intubated, sedated, RASS score is -3. Class III obesity with BMI of 52.4. HEENT normocephalic and head/scalp atraumatic Eyes PERRL and EOMs intact bilaterally Neck no lymphadenopathy and supple Lymph Lymphatic: no lymphadenopathy noted and no lymphedema noted Resp Resp Narrative: patient intubated, sedated, RASS score is -3. Diminished breath sounds bibasally, bilateral crackles. Cardio regular rate, regular rhythm, S1 normal heart sound, S2 normal heart sound and no murmurs GI normal to inspection, nondistended, normoactive bowel sounds, soft to palpation, non-tender and non-distended GI Narrative: very obese abdomen Extremity normal capillary refill, no clubbing, cyanosis or edema and no calf tenderness General Extremity: no tenderness to palpation of joints or extremities Skin Skin Narrative: sternotomy scar Neuro CN's II-XII intact bilaterally, no focal motor deficits and no sensory deficits noted Motor Exam: strength 5/5 throughout and general weakness Psych Psych Narrative: intubated, sedated, RASS score is -3 Assessment & Plan Assessment/Plan (1) Hypoxia: (2) Influenza A: PLAN: Plan #Acute hypoxic respiratory failure due to acute influenza pneumonia and possible ARDS * deteriorated rapidly overnight and had to be emergently intubated and sedated * he remains intubated and sedated. He is on propofol and fentanyl * he was on PEEP of 12, FiO2 of 100% this morning. * critical care evaluated him this morning and is concerned about ARDS. Critical care wants him to be transferred to a facility with * respiratory status worsening. * will switdch PO prednisone to IV solumedrol. * also on IV lasix and IV vancomycin and cefepime. * did not receive tamiflu as he was out of the window. * 2D echo showed overall normal and preserved EF. * Per critical care to broaden antibiotics to IV meropenem and DC vancomycin. Fungal smear also ordered as well as sputum cultures and Gram stain. * paralytic added on per critical care. * #Hypertension: * Patient was hypotensive on admission so his BP meds were held. * Blood pressure still running on the low side of normal so we will continue holding BP meds. #Hyponatremia * sodium is up to 133 today. Improving with diuresis * Being diuresed with IV lasix. * continue diuresis and monitor to see improvement * #JOON: On CPAP nightly #Type 2 diabetes mellitus with hyperglycemia * NPH increased from 55 to 65 units BID. * High dose ISS. switch accuchecks to q6hrly * #History of CAD s/p CABG: On aspirin. Also on statin. Metoprolol held due to hypotension #Paroxysmal A-fib: On Eliquis and metoprolol. #Hypokalemia: Resolved with replacement #Class III obesity: BMI is 52.4. Complicates acute care, expected recovery and prognosis. DVT prophylaxis: on eliquis. Disposition: transfer initiated to [facility]. Charges/Coding Visit Charges Inpatient E&M: 74613 Subs Hosp L3
[2024-07-28] MEDS: Latanoprost 0.005% 1 Bottle 1 DRP RIGHT EYE (10:20)
[2024-07-28] MEDS: Furosemide 40 MG/4 ML Vial IV (10:27)
[2024-07-28] MEDS: APIXABAN 5 MG TABLET GT (10:27)
[2024-07-28] MEDS: Propofol 10MG/Ml 1,000 MG/100 ML Bottle 29.4 MG CONT INF (10:36)
[2024-07-28] MEDS: Insulin Lispro 100 UNIT/ML INSULN.PEN SC (11:28)
[2024-07-28 11:43] LABS: Bedside Glucose 249 mg/dL (74-106)
[2024-07-28 12:02] LABS: Vancomycin, Trough Level 18.4 ug/mL (5.0-15.0)
[2024-07-28] MEDS: Cisatracurium *PARALYTIC 100 MG in 0.9% Normal Saline (250mL Bag) 200 ML 49.1 MG CONT INF (12:10)
[2024-07-28 12:12] LABS: Allen Test Positive; Base Excess 4 mmol/L (-2 to +2); Bicarbonate 29.5 mmol/L (22-26); Blood Gas Specimen Type ART; Mode AC; O2 Delivery Device Adult Vent; PEEP 14; PO2 52 mmHG (75-100); RR 20; SITE L Radial; SO2 85 % (95-99); Total Carbon Dioxide 31 mmol/L; pH 7.38 (7.35-7.45)
--- NOTE | 2024-07-28 12:21 | PCM.RX.CS ---
Consult Antibiotic Management Pharmacy has been consulted to manage selected antibiotic: Vancomycin Type of Intervention Type of Consult: Follow-up Prior Doses of Antibiotics Prior Doses of Antibiotics Received/Current Regimen: current dose is vanc 1250mg IV q8h Labs Labs: Sodium 133 mmol/L (136-145) L 07/28/24 07:55 Potassium 4.0 mmol/L (3.5-5.1) 07/28/24 07:55 Chloride 97 mmol/L (98-107) L 07/28/24 07:55 Carbon Dioxide 29.0 mmol/L (21.0-32.0) 07/28/24 07:55 Anion Gap 7 (5-15) 07/28/24 07:55 BUN 28 mg/dL (7-18) H 07/28/24 07:55 Creatinine 1.01 mg/dL (0.70-1.30) 07/28/24 07:55 Est GFR (MDRD) Af Amer 100 mL/min (>60) 07/28/24 07:55 Est GFR (MDRD) Non-Af 83 mL/min (>60) 07/28/24 07:55 BUN/Creatinine Ratio 27.7 RATIO (10-20) H 07/28/24 07:55 Glucose 187 mg/dL (74-106) H 07/28/24 07:55 Vancomycin Trough 18.4 ug/mL (5.0-15.0) H 07/28/24 11:25 Microbiology Microbiology: Microbiology 07/28/24 04:20 Sputum, Tracheal Aspirate Gram Stain - Final 07/27/24 09:57 Mucosa - Nasopharyngeal Respiratory Panel (PCR) - Final Influenza A (Subtype H1) 07/23/24 18:15 Sputum, Expectorated/Coughed Gram Stain - Final 07/23/24 18:15 Sputum, Expectorated/Coughed Respiratory Culture - Final 07/23/24 12:23 Blood Culture (Wb) - Anticubital Left Blood Culture - Preliminary No growth in 48 hours. 07/23/24 12:30 Blood Culture (Wb) - Left Wrist Blood Culture - Preliminary No growth in 48 hours. 07/23/24 13:42 Urine, Clean Catch Urine Culture - Final Culture exhibits no growth. 07/23/24 12:37 Mucosa - Nose SARS-CoV-2, Influenza & RSV (PCR) - Final Influenzae A Dosing Weight Weight used for dosin.7 kg Estimated Creatinine Clearance Estimated Creatinine Clearance: >100ml/min Goal Trough Goal Trough: 15-20 mcg/mL Pharmacy Plan for Drug Dosing Pharmacy Plan for Drug Dosing: The vanc trough drawn at 11:25 today (approximately 6.5 hours after the previous dose) was 18.4. As the previous dose was given an hour late, this trough would have been a little lower if drawn closer to the 7.5-8 hour yoandy but still within goal range. Recommend to keep same dose and repeat another trough in 2 days per protocol. Pharmacy Service will continue to monitor and adjust dosing as required. Follow-Up Labs Follow-Up Labs: Trough: Vancomycin Date/Time Labs Ordered Labs to be done on [date and time ordered]: 07/30/24 11:30
[2024-07-28] MEDS: Propofol 10MG/Ml 1,000 MG/100 ML Bottle 34.3 MG CONT INF (13:51)
--- NOTE | 2024-07-28 14:05 | NURSING ---
[facility]. present at bedside
--- NOTE | 2024-07-28 16:07 | DS.PCM_ITS ---
Providers Date of Admission: 07/23/24 Date of Discharge: 07/28/24 Primary Care Physician: Dr. Shola Hussein MD Consultations 07/27/24 09:38 Consult: Dental Appliance Repairer / Pulmonary Medicine Routine Consulting Provider: Intensivists/Pulmonary Med Reason for Consult: acute hypoxic respiratory failure due to pneumonia EMERGENT Consult: No Notified: Yes Date Notified: 07/27/24 Time Notified: 09:38 Method of Notification: Text 07/28/24 02:33 Consult: Dental Appliance Repairer / Pulmonary Medicine Routine Consulting Provider: Intensivists/Pulmonary Med Reason for Consult: Influenza A, worsening respiratory status EMERGENT Consult: No Notified: Yes Date Notified: 07/28/24 Time Notified: 01:45 Method of Notification: Verbal Reason For Visit: ASTHMA EXACERBATION SECONDARY TO INFLUENZA Diagnosis Discharge Diagnosis (1) Hypoxia: Status: Acute Code(s): R09.02 - Hypoxemia (2) Influenza A: Status: Acute Code(s): J10.1 - Influenza due to other identified influenza virus with other respiratory manifestations Plan #Acute hypoxic respiratory failure due to acute influenza pneumonia and possible ARDS * deteriorated rapidly overnight and had to be emergently intubated and sedated * he remains intubated and sedated. He is on propofol and fentanyl * he was on PEEP of 12, FiO2 of 100% this morning. * critical care evaluated him this morning and is concerned about ARDS. Critical care wants him to be transferred to a facility with * respiratory status worsening. * will switdch PO prednisone to IV solumedrol. * also on IV lasix and IV vancomycin and cefepime. * did not receive tamiflu as he was out of the window. * 2D echo showed overall normal and preserved EF. * Per critical care to broaden antibiotics to IV meropenem and DC vancomycin. Fungal smear also ordered as well as sputum cultures and Gram stain. * paralytic added on per critical care. * #Hypertension: * Patient was hypotensive on admission so his BP meds were held. * Blood pressure still running on the low side of normal so we will continue holding BP meds. #Hyponatremia * sodium is up to 133 today. Improving with diuresis * Being diuresed with IV lasix. * continue diuresis and monitor to see improvement * #JOON: On CPAP nightly #Type 2 diabetes mellitus with hyperglycemia * NPH increased from 55 to 65 units BID. * High dose ISS. switch accuchecks to q6hrly * #History of CAD s/p CABG: On aspirin. Also on statin. Metoprolol held due to hypotension #Paroxysmal A-fib: On Eliquis and metoprolol. #Hypokalemia: Resolved with replacement #Class III obesity: BMI is 52.4. Complicates acute care, expected recovery and prognosis. DVT prophylaxis: on eliquis. Disposition: transfer initiated to [facility]. Medications at Discharge Home Medications multivitamin (Multiple Vitamins tablet) 1 ea PO DAILY 04/20/17 hydralazine 50 mg tablet 50 mg PO TID 12/15/22 acetaminophen 500 mg tablet 1,000 mg PO Q4H 07/23/24 albuterol sulfate 90 mcg/actuation aerosol inhaler 2 puff inhalation Q4H PRN shortness of breath or wheezing 07/23/24 apixaban 5 mg tablet (Eliquis) 5 mg PO BID 07/23/24 aspirin 81 mg tablet,delayed release (Adult Aspirin Regimen) 81 mg PO DAILY 07/23/24 atorvastatin 80 mg tablet 80 mg PO QHS 07/23/24 brimonidine 0.2 % eye drops 1 drp ophthalmic (eye) BID 07/23/24 brinzolamide 1 %-brimonidine 0.2 % eye drops,suspension 1 drp RIGHT EYE BID 07/23/24 cyanocobalamin (vitamin B-12) 1,000 mcg capsule 1,000 mcg PO DAILY 07/23/24 dorzolamide 2 % eye drops 1 drp ophthalmic (eye) BID 07/23/24 fluticasone furoate 100 mcg-vilanterol 25 mcg/dose inhalation powder (Breo Ellipta) 1 ea inhalation DAILY 07/23/24 insulin NPH isoph U-100 human 100 unit/mL subcutaneous suspension (Novolin N NPH U-100 Insulin isophane) 55 unit subcut BID 07/23/24 insulin regular human 100 unit/mL injection solution (Novolin R Regular U-100 Insulin) 60 unit IM TID 07/23/24 latanoprost 0.005 % eye drops 1 drp RIGHT EYE DAILY 07/23/24 magnesium oxide 400 mg (241.3 mg magnesium) tablet 400 mg PO DAILY 07/23/24 metoprolol succinate 50 mg tablet,extended release 24 hr 150 mg PO DAILY 07/23/24 omeprazole 40 mg capsule,delayed release 40 mg PO DAILY 07/23/24 ondansetron 4 mg disintegrating tablet 4 mg PO Q8 PRN Nausea 07/23/24 spironolactone 25 mg tablet 25 mg PO DAILY 07/23/24 timolol maleate 0.5 % eye drops 1 drp RIGHT EYE BID 07/23/24 tirzepatide 5 mg/0.5 mL subcutaneous pen injector (Mounjaro) 5 mg subcut MO 07/23/24 torsemide 20 mg tablet 40 mg PO BID 07/23/24 vitamin D3 500 unit-folic acid 1 mg tablet (Roxifol-D) 1 tab PO DAILY 07/23/24 Hospital Course Operations None Procedures 2-D Echocardiogram Summary of Care Provided Minutes Spent on Discharge: 65 Hospital Course: Patient is a 49-year-old male with a past medical history as outlined was admitted through the ED on 07/23/2024 with a complaint of shortness of breath and generalized feeling of unwellness for several days with associated nausea vomiting and diarrhea. He also had shortness of breath and cough as well as wheezing. He was brought in by the EMS and he was saturating at 88% on room air. He also admitted to fever and chills. He required 2 L to saturate in the mid 90s. Chest x-ray showed no acute infiltrate and showed no acute cardiopulmonary process. Creatinine was 1.49 and he tested positive for flu. He was admitted to be managed for hypoxia due to influenza A infection. Patient was out of window for Tamiflu so he was started on IV Solu-Medrol on account of concerns for acute asthma exacerbation as well as breathing treatments bronchodilators. Patient's oxygen requirements gradually increased. He went up from 2 L to 4 L. He was started on diuresis with IV Lasix to due to concerns for fluid overload. Due to hyperglycemia, the IV solumedrol was switched to p.o. prednisone. 2D echo done overall normal left ventricular systolic function. Cardiology reviewed. Dental Appliance Repairer was consulted at that time and recommended patient should have a bronchoscopy. Patient's oxygen requirements suddenly increased to around 15 L. He was then placed on Airvo after which he improved. Recommendation was for low risk for transfer to the ICU. He was placed on IV vancomycin and cefepime due to concerns about post influenza pneumonia. in the early hours of 07/28/2024 patient became acutely short of breath and even on the Airvo was not compensating well. He was therefore emergently transferred to the ICU and intubated.Critical care reviewed patient again and was concerned about patient developing ARDS in light of his sudden decompensation. Patient was maxed out on FiO2 of 100% and was on PEEP of 12 but was only saturating at around 86 to 87%. He was sedated on propofol and fentanyl and was also given a dose of rocuronium by critical care to paralyze him. The cefepime was broadened to meropenem. Critical care recommended transfer to a tertiary center with ECMO services and also to a center where he could have bronchoscopy CHERRI. An antifungal was also added on and his p.o. prednisone was switched to IV methylprednisolone again. Patient was accepted at both [facility] and [facility]. He however immediately got a bed at [facility] and so was transferred there to the critical care service on 07/28/2024. Patient was life flighted to [facility]. Patient's was counseled about the severity of his illness and guarded prognosis. Patient was seen and examined prior to transfer. Patient was intubated. He was also sedated and RASS score was -3. was by his bedside. Unable to do review of systems due to patient being intubated and sedated. Physical Exam Const Constitutional Narrative: Intubated, sedated, RASS score is -3. Class III obesity with BMI of 52.4. HEENT normocephalic, head/scalp atraumatic, moist oral mucous membranes and oropharynx normal Eyes PERRL and EOMs intact bilaterally Neck no lymphadenopathy and supple Lymph Lymphatic: no lymphadenopathy noted and no lymphedema noted Resp Resp Narrative: patient intubated, sedated, RASS score is -3. Diminished breath sounds bibasally, bilateral crackles. Cardio regular rate, regular rhythm, S1 normal heart sound, S2 normal heart sound and no murmurs GI normal to inspection, nondistended, normoactive bowel sounds, soft to palpation, non-tender and non-distended GI Narrative: very obese abdomen Extremity normal capillary refill, no clubbing, cyanosis or edema and no calf tenderness General Extremity: no tenderness to palpation of joints or extremities Skin Skin Narrative: sternotomy scar Neuro Neuro Narrative: intubated, sedated, RASS score is -3 Psych Psych Narrative: intubated, sedated, RASS score is -3 Weight / BMI Weight Weight: 360 lb 14.347 oz Body Mass Index (BMI) 51.7 ABG / Lab / Microbiology Data 07/28/24 07:55 07/28/24 07:55 Laboratory: Laboratory Results - last 24 hr 07/27/24 17:14: POC Glucose 120 H 07/27/24 20:48: POC Glucose 112 H 07/28/24 07:55: WBC 5.8, RBC 4.00 L, Hgb 9.4 L, Hct 30.5 L, MCV 76.3 L, MCH 23.5 L, MCHC 30.8 L, RDW Std Deviation 47.9 H, RDW Coeff of Osorio 17.2 H, Plt Count 180, MPV 9.9, Immature Gran % (Auto) 1.500 H, Neut % (Auto) 79.2 H, Lymph % (Auto) 12.9 L, Caldwell % (Auto) 6.2, Eos % (Auto) 0.0, Baso % (Auto) 0.2, Absolute Neuts (auto) 4.6, Absolute Lymphs (auto) 0.75 L, Nucleated RBC % 0, Sodium 133 L , Potassium 4.0, Chloride 97 L, Carbon Dioxide 29.0, Anion Gap 7, BUN 28 H, Creatinine 1.01, Estim Creat Clear Calc 135.25, Est GFR (MDRD) Af Amer 100, Est GFR (MDRD) Non-Af 83, BUN/Creatinine Ratio 27.7 H, Glucose 187 H, Calcium 8.0 L, Total Creatine Kinase 401 H, Triglycerides 153, POC Glucose 186 H 07/28/24 11:25: Vancomycin Trough 18.4 H, POC Glucose 249 H Microbiology: Microbiology 07/28/24 11:43 Nasal Secretion MRSA (PCR) - Final 07/23/24 12:23 Blood Culture (Wb) - Anticubital Left Blood Culture - Final No growth in 5 days. 07/23/24 12:30 Blood Culture (Wb) - Left Wrist Blood Culture - Final No growth in 5 days. 07/28/24 04:20 Sputum, Tracheal Aspirate Gram Stain - Final 07/27/24 09:57 Mucosa - Nasopharyngeal Respiratory Panel (PCR) - Final Influenza A (Subtype H1) 07/23/24 18:15 Sputum, Expectorated/Coughed Gram Stain - Final 07/23/24 18:15 Sputum, Expectorated/Coughed Respiratory Culture - Final 07/23/24 13:42 Urine, Clean Catch Urine Culture - Final Culture exhibits no growth. 07/23/24 12:37 Mucosa - Nose SARS-CoV-2, Influenza & RSV (PCR) - Final Influenzae A ABG: ABG 07/28/24 07/28/24 03:58 12:08 Specimen Type ART ART Sample Site R Radial L Radial pH 7.37 7.38 Bicarbonate Actual 29.4 H 29.5 H Total CO2 31 31 Base Excess 4 H 4 H O2 Saturation 92 L 85 L O2 % 100.0 100.0 ABG pCO2 50.5 H 50.0 H ABG pO2 66 L 52 L Zac Test Positive Positive Respiration Rate 14 20 O2 Delivery Device Adult Vent Adult Vent Vent Mode AC AC Tidal Volume 500.0 420.0 POC PEEP 10 14 Radiography Diagnostic Testing: Radiology Impression Chest X-Ray 07/28/24 03:20 IMPRESSION: 1. Cardiomegaly with moderate pulmonary vascular congestion and edema. Superimposed infection not excluded 2. Mild bilateral pleural effusions, [id number] Reading Location: [facility] Instructions DC O2, CPAP, BIPAP Needs PSN CPAP & BiPAP: BiPAP & CPAP Settings per PSN Mode AVAPS 07/28/24 00:02 Bipap Delivery Device Face Mask 07/28/24 00:02 BiPAP Expiratory Pressure 12 07/28/24 00:02 BiPAP Rate 12 07/28/24 00:02 Fraction of Inspired Oxygen ( 100 07/28/24 13:52 FIO2) Total Flow Rate 90 07/27/24 19:45 Home O2 Discharge instructions: No DC home with Oxygen: No Meaningful Use Info Meaningful Use Meaningful Use Diagnoses (Choose all that apply): None applicable Ischemic Stroke Statin Dosing Therapy Reference: STATIN DOSE THERAPY REFERENCE: * Patients > 75 years receive moderate or high dose statin therapy. * Patients 75 years or YOUNGER should receive HIGH intensity statin dose unless contraindicated. You will be required to document reason for non-treatment if statin daily dose does not meet guidelines. HIGH DOSE STATIN THERAPY DAILY Atorvastatin > than or = to 40 mg Rosuvastatin > than or = to 20 mg Amlodipine + Atorvastatin > than or = to 2.5/40 mg Ezetimibe + Simvastatin 10/80 mg Simvastatin 80mg Discharge Plan Admission Admit Date/Time: 07/23/24 14:54 Primary Reason for Your Visit: hypoxia due to influenza Attending Provider: Jocelyn Cespedes Primary Care Provider: Shola Hussein Consulting Providers: Danna Rubio; Buddy Linares; Baldo Modi; David Castañeda; Chago Green; Anthony Perez; Cl Calle; Olvin Serna; Johanne Esteban; Rizwan Anderson; Rodolfo Stokes; Anselmo Jacques; Pallavi Magaña; Radha Lester; Marcela Ruth; Jerry Bloom; Carlos Keyes; Kameron Junior; James Gant; Shayla Valentine; Alejandro Connelly; Alexandro Orr; Donald Crockett; Darius Guerra Discharge Orders/Prescriptions Prescriptions: No Action multivitamin [Multiple Vitamins] 1 EACH tablet 1 ea PO DAILY hydralazine 50 mg tablet 50 mg PO TID Patient Comments: TAKE 1 TABLET BY MOUTH 4 TIMES A DAY cyanocobalamin (vitamin B-12) 1,000 mcg capsule 1,000 mcg PO DAILY albuterol sulfate 90 mcg/actuation HFA aerosol inhaler 2 puff INHALATION Q4H PRN (Reason: shortness of breath or wheezing) aspirin [Adult Aspirin Regimen] 81 mg tablet,delayed release (DR/EC) 81 mg PO DAILY brimonidine 0.2 % drops 1 drp ophthalmic (eye) BID Rx Instructions: USE IN EACH EYE dorzolamide 2 % drops 1 drp ophthalmic (eye) BID Rx Instructions: USE IN EACH EYE Eliquis 5 mg tablet 5 mg PO BID fluticasone furoate-vilanterol [Breo Ellipta] 100-25 mcg/dose blister with device 1 ea INHALATION DAILY latanoprost 0.005 % drops 1 drp RIGHT EYE DAILY Novolin N NPH U-100 Insulin 100 unit/mL suspension 55 unit subcut BID magnesium oxide 400 mg (241.3 mg magnesium) tablet 400 mg PO DAILY Novolin R Regular U100 Insulin 100 unit/mL solution 60 unit IM TID metoprolol succinate 50 mg tablet extended release 24 hr 150 mg PO DAILY omeprazole 40 mg capsule,delayed release(DR/EC) 40 mg PO DAILY spironolactone 25 mg tablet 25 mg PO DAILY timolol maleate 0.5 % drops 1 drp RIGHT EYE BID torsemide 20 mg tablet 40 mg PO BID Mounjaro 5 mg/0.5 mL pen injector 5 mg subcut MO atorvastatin 80 mg tablet 80 mg PO QHS acetaminophen 500 mg tablet 1,000 mg PO Q4H brinzolamide-brimonidine 1-0.2 % drops,suspension 1 drp RIGHT EYE BID Roxifol-D 500 unit- 1 mg tablet 1 tab PO DAILY ondansetron 4 mg tablet,disintegrating 4 mg PO Q8 PRN (Reason: Nausea) Referrals / Follow Up: Shola Hussein MD [Primary Care Provider] - Disposition Disposition (needs filled in before D/C Order can be placed): Acute Care Hospital Charges/Coding Visit Charges Inpatient E&M: 07905 Disch Hosp >30min
== END 2024-07-28 14:50 | disposition short-term general hospital (02) | DRG 208 ==
LOC: ED 14:10 → PCU 15:40 → ICU 07-28 03:38
PROVIDERS: Family Medicine; Admitting Provider Internal Medicine; Emergency Provider Emergency Medicine; PCP Family Medicine; Visit Provider Student in an Organized Health Care Education/Training Program
DX: J10.01 Influenza due to other identified influenza virus with the same other identified influenza virus pneumonia (principal); J80 Acute respiratory distress syndrome; E66.2 Morbid (severe) obesity with alveolar hypoventilation; J45.901 Unspecified asthma with (acute) exacerbation; E87.1 Hypo-osmolality and hyponatremia; Z68.43 Body mass index [BMI] 50.0-59.9, adult; J98.11 Atelectasis; E11.22 Type 2 diabetes mellitus with diabetic chronic kidney disease; N18.31 Chronic kidney disease, stage 3a; I12.9 Hypertensive chronic kidney disease with stage 1 through stage 4 chronic kidney disease, or unspecified chronic kidney disease; I48.0 Paroxysmal atrial fibrillation; E86.0 Dehydration; I95.9 Hypotension, unspecified; Z79.4 Long term (current) use of insulin; I45.10 Unspecified right bundle-branch block; I25.10 Atherosclerotic heart disease of native coronary artery without angina pectoris; E87.6 Hypokalemia; E11.65 Type 2 diabetes mellitus with hyperglycemia; Z95.1 Presence of aortocoronary bypass graft; Z79.01 Long term (current) use of anticoagulants; Z79.82 Long term (current) use of aspirin; Z88.0 Allergy status to penicillin; Z79.899 Other long term (current) drug therapy; Z87.891 Personal history of nicotine dependence
CPT/HCPCS: 31500; 31720; 36415; 36600; 71045; 71046; 71275; 80048; 80053; 80202; 81001; 82550; 82803; 82962; 83605; 84478; 85025; 85610; 85730; 87040; 87070; 87086; 87205; 87206; 87631; 87633; 87641; 93005; 93306; 94002; 94640; 94660; 94668; 94762; 97110; 97162; 97165; 97802; 99252; 99285; J2185; Q9957; Q9967; A4216; C8929; G0463; J1940; J2405